=== PATIENT | female | born 1940 | race Caucasian/White ===

== ENCOUNTER 2019-11-15 09:25 | Outpatient (CLI) | payer MEDICARE, SELFPAY ==
--- NOTE | ~2019-11-15 | DEXA_ITS ---
Bone Density Report Name: Rachell Power Age: 79 Sex: Female Ethnicity: White Date of : 1940 Indication: postmenopausal; Referring Provider: Rebecca De Leon Study: Bone densitometry was performed. Exam Date: November 15, 2019 Accession number: [id number] Bone Density: Region BMD T-score Z-score Classification AP Spine (L1, L3) 1.088 0.7 3.2 Normal Femoral Neck (Left) 0.807 -0.4 1.8 Normal Total Hip (Left) 1.000 0.5 2.4 Normal Total Hip Bilateral Avg 0.994 0.5 2.4 Normal Femoral Neck (Right) 0.788 -0.5 1.7 Normal Total Hip (Right) 0.986 0.4 2.3 Normal World Health Organization criteria for BMD impression classify patients as: Normal (T-score at or above -1.0), Osteopenia (T-score between -1.0 and -2.5), or Osteoporosis (T-score at or below -2.5). 10-year Fracture Risk: FRAX not reported because: All T-scores for Spine Total, Hip Total, Femoral Neck at or above -1.0 Clinical Information Provided by Patient: Patient maximum height was 64 Menopause Age: 52 No regular weight bearing exercise Drinks caffeinated beverages Onset of menses at age 16 Number of children 0 Impression: The patient has normal bone mass. Discussion: BONE DENSITY IS ABOVE THE MINIMUM DESIRABLE LEVEL AT ALL SKELETAL SITES TESTED. This patient?s bone mineral density is above the minimum desirable level (T-score -1.0 or better) at all sites measured. The patient should follow a healthful lifestyle (good nutrition with adequate calcium and vitamin D, and appropriate weight-bearing exercise). Follow-Up: Consider repeating this study in 5 years or sooner if there is some new clinical indication. Reported by: OMAR on 11/15/2019 10:08:00 AM. Reviewed, dictated and finalized at location AТатьяна BARBOUR
== END 2019-11-15 09:26 | disposition home or self-care (01) ==
PROVIDERS: PCP Internal Medicine; Visit Provider Internal Medicine Endocrinology, Diabetes & Metabolism
DX: E03.9 Hypothyroidism, unspecified (principal); E11.65 Type 2 diabetes mellitus with hyperglycemia; Z78.0 Asymptomatic menopausal state
CPT/HCPCS: 77080

== ENCOUNTER 2020-01-30 08:22 | Outpatient (CLI) | payer MEDICARE, SELFPAY | END 2020-01-30 08:23 | disposition home or self-care (01) | PROVIDERS: PCP Internal Medicine; Visit Provider Internal Medicine Endocrinology, Diabetes & Metabolism | DX: E03.9 Hypothyroidism, unspecified (principal); R41.3 Other amnesia; Z78.0 Asymptomatic menopausal state; Z86.39 Personal history of other endocrine, nutritional and metabolic disease | CPT/HCPCS: 36415; 82607; 84439; 84443 ==

== ENCOUNTER 2020-05-09 06:46 | Outpatient (CLI) | payer MEDICARE, SELFPAY ==
--- NOTE | ~2020-05-09 | MR_ITS ---
EXAMINATION: MR brain/brain stem wo/w con DATE: 05/09/2020 08:01 INDICATION: Dementia. Amnesia. TECHNIQUE: Magnetic resonance imaging (MRI) of the brain and brainstem was performed without and with 15 mL Multihance intravenous contrast. Sequences included sagittal and axial T1-weighted SE, axial d iffusion-weighted FS SE, axial T2*-weighted GRE, axial T2-weighted FLAIR, and axial T2-weighted FSE. Postcontrast axial and coronal T1-weighted SE was obtained. Apparent diffusion coefficient (ADC) maps were created. COMPARISON: 01/16/2011 FINDINGS: Residual encephalomalacia consistent with evolution of the previously acute infarct in the left occip ital lobe and inferomedial left temporal lobe. Additional smaller regions of encephalomalacia consist ent with chronic infarcts new since the prior study located in the right occipital lobe, posterior ri ght temporal lobe and intervening temporal occipital region. There are no areas of restricted diffusi on to suggest acute infarction. No intracranial hemorrhage or abnormal intracranial mass lesion. Ther e are scattered areas of nonspecific increased T2-weighted signal intensity in the cerebral white mat ter, predominantly involving the deep and periventricular white matter. There are no intraparenchymal signal abnormalities seen on the other pulse sequences. Symmetric prominence of the sulci and ventri cles consistent with mild age-appropriate diffuse cerebral volume loss. There are no abnormal extra-a xial fluid collections. Flow voids are seen in the cerebral arteries on the T2-weighted sequences con sistent with their expected patency. Changes of right intraocular lens replacement. Visualized orbits and soft tissues are unremarkable. There are no areas of abnormal enhancement on the post contrast i mages. IMPRESSION: 1. No acute intracranial process or abnormally enhancing brain lesions. 2. Chronic infarcts in the bilateral occipital and temporal lobes, more extensive on the left. 3. Age-related changes including mild diffuse volume loss and mild scattered periventricular white ma tter T2 hyperintensity consistent with chronic small vessel ischemic disease. Reviewed, dictated and finalized at location A. IMPRESSION: 1. No acute intracranial process or abnormally enhancing brain lesions. 2. Chronic infarcts in the bilateral occipital and temporal lobes, more extensi ve on the left. 3. Age-related changes including mild diffuse volume loss and mild scattered pe riventricular white matter T2 hyperintensity consistent with chronic small vess el ischemic disease.
[2020-05-09 07:30] LABS: Estimated Glomerular Filt Rate > 60
[2020-05-09 08:16] LABS: Basophils Percent Auto 0.3 % (0.2-1.2); Eosinophils Absolute Auto 0.1 K/mm3 (0-0.3); Eosinophils Percent Auto 2.1 % (0-4.4); Hemoglobin 7.6 g/dL (12.0-15.0); Immature Granulocyte Absolute 0.01 K/mm3 (0.00-0.031); Immature Granulocyte Percent A 0.3 % (0-0.5); Lymphocytes Absolute Auto 0.38 K/mm3 (0.9-3.2); Lymphocytes Percent Auto 10.1 % (18.3-44.2); Mean Corpuscular HGB Conc 29.2 g/dl (32-36); Mean Corpuscular Hemoglobin 22.4 pg (26-34); Mean Corpuscular Volume 76.5 fl (80-100); Mean Platelet Volume 7.9 fl (7.4-10.4); Monocytes Absolute Auto 0.3 K/mm3 (0.1-0.6); Neutrophils Percent Auto 79.2 % (45.5-73.1); Platelet Count Result 243 k/mm3 (150-375); Red Cell Distribution Width 18.3 % (11.5-14.5); White Blood Count 3.8 K/mm3 (4.5-10.0)
[2020-05-09 08:28] LABS: Alanine Aminotransferase 10 U/L (4-35); Albumin Level 3.6 g/dL (3.5-5.1); Alkaline Phosphatase 87 U/L (38-126); Anion Gap 8 mmol/L (8-16); Aspartate Amino Transferase 19 U/L (14-36); Bilirubin,Total 0.7 mg/dL (0.2-1.3); Blood Urea Nitrogen 15 mg/dL (7-17); Calcium 8.6 mg/dL (8.4-10.2); Carbon Dioxide 31 mmol/L (22-30); Chloride 92 mmol/L (98-107); Estimated Glomerular Filt Rate > 60; Glucose 111 mg/dL (65-105); Potassium 3.5 mmol/L (3.4-5.0); Sodium 131 mmol/L (137-145)
[2020-05-09 09:04] LABS: Erythrocyte Sedimentation Rate > 140 mm/hr (0-20)
[2020-05-09 09:52] LABS: Rapid Plasma Reagin Non-Reactive (NonReactive)
== END 2020-05-09 06:47 | disposition home or self-care (01) ==
PROVIDERS: PCP Internal Medicine; Visit Provider Internal Medicine
DX: F03.91 Unspecified dementia, unspecified severity, with behavioral disturbance (principal); R41.3 Other amnesia; R26.9 Unspecified abnormalities of gait and mobility; E03.9 Hypothyroidism, unspecified; I63.9 Cerebral infarction, unspecified
CPT/HCPCS: 36415; 70553; 80053; 84443; 85025; 85652; 86592; A9577

== ENCOUNTER 2020-05-10 11:46 | Outpatient (CLI) | payer MEDICARE, SELFPAY ==
--- NOTE | ~2020-05-10 | CT_ITS ---
EXAMINATION: CT abdomen pelvis w con DATE: 05/10/2020 11:25 INDICATION: Abnormal weight loss, anemia TECHNIQUE: Computed tomography (CT) of the abdomen and pelvis was performed with 100 cc Omnipaque 350 intravenous contrast. Automated exposure control and iterative reconstruction technique were employe d. Exam dose: 644.01 mGy-cm total exam DLP. COMPARISON: 03/18/2011 CT urogram with and without IV contrast material FINDINGS: There is mild discoid atelectasis or scarring at the lung bases, left greater than right. Cardiomegaly. There is mild pericardial effusion. There is hepatic steatosis. There are numerous stones nearly filling the gallbladder lumen. Gallbladd er wall thickness is within normal range. There is no pericholecystic fluid or fat stranding. Spleen measures within normal range for size. No pancreatic mass lesion or calcification or pancreatic duct dilatation. Normal morphology of the adrenal glands. There is an irregular up to approximately 2 cm hypoenhancing mass of the anterolateral aspect of the upper pole of the left kidney. This is suspicious for renal cell carcinoma. There is a 2 cm indeterminate mass at the anterior aspect of the lower pole of the right kidney with attenuation of approximately 64 Hounsfield units. Hyperdense cyst versus solid renal neoplasm would b e the considerations. There is a 5 mm indeterminate hypoenhancing lesion of the anterior mid right kidney. There is a focal approximately 8.5 mm hypoenhancing area along the medial aspect of the upper pole of the left kidney. There is some apparent scarring along the posterior mid left kidney. MRI examination of the kidneys is recommended for further evaluation of suspected hypernephroma. No urinary tract calculus or hydroureteronephrosis is evident. The urinary bladder is unremarkable. S tatus post hysterectomy. There is atherosclerotic calcification of the abdominal aorta and branches, including prominent calci fications at the origins of both renal arteries. No abdominal aortic aneurysm. No intraperitoneal or retroperitoneal or pelvic mass lesion or adenopathy or ascites. A duodenal diverticulum is noted. There are innumerable diverticula of the sigmoid and descending colon; no evidence of diverticulitis. There is herniation of a short segment of transverse colon through a right anterior supraumbilical ve ntral abdominal wall hernia, without apparent stricture or obstruction. Up to 5 cm wide fat-containing umbilical hernia. There is a hemangioma the right side of the L4 vertebral body. There is levoscoliosis and prominent m ultilevel degenerative disc disease of the lumbar spine, especially at L2-3, L3-4 and L5-S1. There is degenerative change at the apophyseal joints as well.. IMPRESSION: Bilateral renal masses, including a 2 cm right renal mass highly suspicious for hypernep hroma. MRI of the kidneys is recommended for further evaluation Cardiomegaly Hepatic steatosis Cholelithiasis Duodenal diverticulum Diverticulosis of the colon Dr. Booker notified Dr. Roca's tax services professional service by telephone on 05/10/2020 at 1155 hours with the re port of suspected hypernephroma and recommendation for MRI examination of the kidneys. Reviewed, dictated and finalized at Location A. Reviewed, dictated and finalized at location A. IMPRESSION: Bilateral renal masses, including a 2 cm right renal mass highly s uspicious for hypernephroma. MRI of the kidneys is recommended for further eval uation Cardiomegaly Hepatic steatosis Cholelithiasis Duodenal diverticulum Diverticulosis of the colon Dr. Booker notified Dr. Roca's tax services professional service by telephone on 05/10/2020 at 1155 hours with the report of suspected hypernephroma and r
[2020-05-10 12:14] LABS: Hematocrit 25.9 % (37.0-47.0); Hemoglobin 7.5 g/dL (12.0-15.0); Mean Corpuscular Hemoglobin 22.3 pg (26-34); Mean Corpuscular Volume 76.9 fl (80-100); Mean Platelet Volume 7.9 fl (7.4-10.4); Platelet Count Result 236 k/mm3 (150-375); Red Blood Count 3.37 M/mm3 (4.2-5.4); Red Cell Distribution Width 18.4 % (11.5-14.5); White Blood Count 3.8 K/mm3 (4.5-10.0)
[2020-05-10 12:27] LABS: Lactate Dehydrogenase 313 U/L (313-618)
[2020-05-15 11:33] LABS: Haptoglobin 156 mg/dL (43-212)
== END 2020-05-10 11:47 | disposition home or self-care (01) ==
PROVIDERS: PCP Internal Medicine; Visit Provider Internal Medicine
DX: R63.4 Abnormal weight loss (principal); D64.9 Anemia, unspecified; N28.89 Other specified disorders of kidney and ureter; I51.7 Cardiomegaly; K80.20 Calculus of gallbladder without cholecystitis without obstruction; K57.30 Diverticulosis of large intestine without perforation or abscess without bleeding
CPT/HCPCS: 36415; 74177; 82728; 83010; 83615; 85027; Q9967

== ENCOUNTER 2020-05-14 11:42 | Outpatient (CLI) | payer MEDICARE, SELFPAY ==
--- NOTE | ~2020-05-14 | MR_ITS ---
EXAMINATION: MR abdomen wo/w con DATE: 05/14/2020 13:41 INDICATION: Bilateral renal masses. TECHNIQUE: Magnetic resonance imaging (MRI) of the abdomen was performed without and with 15 mL Multi darryl intravenous contrast. Sequences included coronal T2-weighted SS-FSE, coronal and axial FS 2D-F IESTA, axial STIR FSE, axial T2-weighted SS-FSE, axial T2-weighted FS SS-FSE, axial diffusion-weighte d SE, axial dual-echo T1-weighted FSPGR, and axial and coronal T1-weighted LAVA. Postcontrast axial T 1-weighted LAVA images were obtained in a time course. Postcontrast coronal T1-weighted LAVA images w ere obtained. COMPARISON: CT dated 05/10/20 FINDINGS: Evaluation is mildly limited by mild to moderate motion artifact on multiple sequences. Cardiomegaly. Small pericardial effusion. No pleural effusion. Multiple gallstones in the gallbladder. Common bile duct measures up to 5-6 mm which is normal with no evident choledocholithiasis. Liver is normal with no intrahepatic biliary ductal dilation. Spleen, pancreas and bilateral adrenal glands are normal. S hort segment of nonobstructed transverse colon extends through a small upper abdominal ventral hernia . There is additional more caudal small fat-containing umbilical hernia. Visualized bowels are otherw ise unremarkable. No pathologically enlarged abdominal lymphadenopathy. Mild lumbar levoscoliosis wit h severe spondylosis and associated degenerative endplate changes. Marrow signal is otherwise unremar kable. 8 mm T1 hyperintense, T2 hypointense nonenhancing proteinaceous/hemorrhagic cyst at the upper pole of the left kidney. Small region of cortical scarring at the posterior medial aspect of the mid left ki dney. 2.3 cm T1 hyperintense, T2 hypointense nonenhancing proteinaceous/hemorrhagic cyst at the anter ior lower pole of the right kidney. 2.1 cm mass at the anterior upper pole of the right kidney demons trating heterogeneous T1 and T2 signal and enhancement on postcontrast images consistent with renal c ell carcinoma. IMPRESSION: 1. 2.1 cm enhancing mass at the upper pole of the right kidney consistent with renal cell carcinoma. 2. Nonenhancing proteinaceous/hemorrhagic cysts at the upper pole of the left and lower pole of the r ight kidney. 3. Cholelithiasis. 4. Cardiomegaly with small pericardial effusion. 5. Fat-containing umbilical hernia and more cephalad ventral hernia containing short segment of nonob structed transverse colon. Reviewed, dictated and finalized at location A. IMPRESSION: 1. 2.1 cm enhancing mass at the upper pole of the right kidney consistent with renal cell carcinoma. 2. Nonenhancing proteinaceous/hemorrhagic cysts at the upper pole of the left a nd lower pole of the right kidney. 3. Cholelithiasis. 4. Cardiomegaly with small pericardial effusion. 5. Fat-containing umbilical hernia and more cephalad ventral hernia containing short segment of nonobstructed transverse colon.
== END 2020-05-14 11:43 | disposition home or self-care (01) ==
PROVIDERS: Visit Provider Internal Medicine
DX: K80.20 Calculus of gallbladder without cholecystitis without obstruction (principal); I51.7 Cardiomegaly; I31.3 Pericardial effusion (noninflammatory); K42.9 Umbilical hernia without obstruction or gangrene
CPT/HCPCS: 74183; A9577

== ENCOUNTER 2020-05-17 09:54 | Outpatient (CLI) | payer MEDICARE, SELFPAY ==
[2020-05-17 10:40] LABS: Hematocrit 27.2 % (37.0-47.0); Hemoglobin 7.9 g/dL (12.0-15.0); Mean Corpuscular Hemoglobin 22.1 pg (26-34); Mean Platelet Volume 8.4 fl (7.4-10.4); Platelet Count Result 281 k/mm3 (150-375); Red Blood Count 3.58 M/mm3 (4.2-5.4); Red Cell Distribution Width 18.2 % (11.5-14.5)
== END 2020-05-17 09:55 | disposition home or self-care (01) ==
LOC: ANHLAB 09:55
PROVIDERS: Visit Provider Internal Medicine
DX: D64.9 Anemia, unspecified (principal)
CPT/HCPCS: 36415; 85027

== ENCOUNTER 2020-06-17 00:50 | Outpatient (CLI) | payer MEDICARE, SELFPAY ==
[2020-06-17 17:41] LABS: SARS-CoV-2 RNA PCR Negative
== END 2020-06-17 00:51 | disposition home or self-care (01) ==
LOC: ANHCOVIDDT 00:50
PROVIDERS: Visit Provider Internal Medicine Gastroenterology
DX: Z01.812 Encounter for preprocedural laboratory examination (principal); Z20.828 Contact with and (suspected) exposure to other viral communicable diseases
CPT/HCPCS: 87635; C9803; U0003

== ENCOUNTER 2020-06-19 01:55 | Day surgery (SDC) | payer MEDICARE, SELFPAY ==
[2020-06-13 13:16] VITALS: BMI 26.9
[2020-06-19 12:30] VITALS: BP 125/39; PULSE 115; RESP 20; TEMP 36.3; O2SAT 100
[2020-06-19] MEDS: LACTATED RINGERS 1,000 ML 150 ML IV CONT (12:52)
--- NOTE | 2020-06-19 13:10 | WPDANESEPPF ---
Anes - Initial Pre Proc Eval Procedure: Operation Date: 06/19/20 13:30 Proposed Procedures p Esophagogastroduodenoscopy&Screen Colon - Gregorio Muse MD Date/Time: 06/19/20 13:10 Surgeon: Gregorio Muse MD Pre Op Diagnosis: Iron Deficient Anemia, Neoplasm Screening Patient Data Age: 80 Gender: F Height: 5 ft 4 in Weight: 69.2 kg Last Vital Signs Temp 97.3 F L 06/19/20 12:30 Pulse 115 H 06/19/20 12:30 Resp 20 06/19/20 12:30 BP 125/39 L 06/19/20 12:30 Pulse Ox 100 06/19/20 12:30 Allergies Allergy/AdvReac Type Severity Reaction Status Date / Time simvastatin Allergy Unknown Unknown Verified 06/19/20 12:26 MEPERIDINE HCL AdvReac Severe MADE Uncoded 06/19/20 12:26 PATIENT VERY MEAN DURING LABOR Home Medications Medication Instructions Recorded Confirmed Type blood sugar diagnostic #10 each 07/19/19 05/07/20 History rivaroxaban 20 mg tablet 20 mg PO DAILY 07/19/19 06/13/20 History hydrochlorothiazide 25 mg tablet 25 mg PO DAILY 10/25/19 06/19/20 History metoprolol succinate 100 mg 100 mg PO BID each 10/25/19 06/19/20 History capsule sprinkle, ext. release 24 hr telmisartan 40 mg tablet 80 mg PO DAILY tablet 10/25/19 06/13/20 History levothyroxine 25 mcg tablet 25 mcg PO DAILY #120 tablet 01/24/20 06/19/20 Rx ferrous sulfate [iron] 325 mg PO BID 06/13/20 06/13/20 History Patient hx anesthesia problems: none Family hx anesthesia problems: none PMFSH Past Medical History Medical History (Updated 05/16/20 @ 13:54 by Gregorio Muse MD) Afib Microcytic anemia Renal mass Stroke Type 2 diabetes mellitus with hyperglycemia Surgical History Surgical History H/O: hysterectomy Family History Family History Sibling Family history of thyroid disease Cerebrovascular accident Social History Social History Smoking status: Never smoker Second hand tobacco smoke exposure: No Alcohol intake: never Living arrangements: with family Gender identity (if verbalized by the patient): Male Spiritual care concerns: Yes (jahovas witness) Anes - Eval Final PreProcedure Day of Procedure 06/19/20 13:10 Patient weight: normal Heart: regular rate and rhythm Lungs: clear to auscultation Airway: Mallampati scale class II Neurological: alert and oriented Last oral intake: >/= 8 hours ASA classification: III Emergent: no Anesthetic plan: proceed Anesthesia type and monitoring: general GIVS and standard monitoring Informed Consent: The patient's anesthetic plan and its attendant risks and benefits were discussed with the patient/family/POA. Questions were solicited and answers provided to the satisfaction of the patient/family/POA.
--- NOTE | 2020-06-19 13:17 | PM.HPGS ---
History of Present Illness History of Present Illness Consent: Risks, benefits, and alternatives have been discussed and questions answered. Patient agrees to proceed with procedure. Chief complaint: Iron Deficient Anemia, Neoplasm Screening Narrative: Rachell Power is a 80 year old female with aurelia, needs scopes Review of Systems Constitutional: Constitutional: Denies headache(s) and Denies weakness Eyes: Eyes: Denies blurry vision ENT: Reports Normal hearing present, Denies headache(s) and Denies neck pain Cardiovascular: Cardiovascular: Denies chest pain and Denies dyspnea Respiratory: Respiratory: Denies dyspnea Gastrointestinal: Gastrointestinal: Reports no additional gastrointestinal complaints Genitourinary: Genitourinary: Denies dysuria Musculoskeletal: Musculoskeletal: Denies neck pain Integumentary/Breasts: Skin/Breast: Denies dry skin Neurologic: Reports Normal hearing present, Denies headache(s) and Denies weakness Psychiatric: Psychiatric: Denies anxiety Endocrine: Endocrine: Denies change in body appearance Hematologic/Lymphatic: Hematologic/Lymphatic: Denies easy bleeding Allergic/Immunologic: Allergic/Immunologic: Denies urticaria PMFSH Past Medical History Medical History (Updated 05/16/20 @ 13:54 by Gregorio Muse MD) Afib Microcytic anemia Renal mass Stroke Type 2 diabetes mellitus with hyperglycemia Surgical History Surgical History H/O: hysterectomy Family History Family History Sibling Family history of thyroid disease Cerebrovascular accident Social History Social History Smoking status: Never smoker Second hand tobacco smoke exposure: No Alcohol intake: never Living arrangements: with family Gender identity (if verbalized by the patient): Male Spiritual care concerns: Yes (jahovas witness) Meds Home Medications and Allergies Home Medications Medication Instructions Recorded Confirmed Type blood sugar diagnostic #10 each 07/19/19 05/07/20 History rivaroxaban 20 mg tablet 20 mg PO DAILY 07/19/19 06/13/20 History hydrochlorothiazide 25 mg tablet 25 mg PO DAILY 10/25/19 06/19/20 History metoprolol succinate 100 mg 100 mg PO BID each 10/25/19 06/19/20 History capsule sprinkle, ext. release 24 hr telmisartan 40 mg tablet 80 mg PO DAILY tablet 10/25/19 06/13/20 History levothyroxine 25 mcg tablet 25 mcg PO DAILY #120 tablet 01/24/20 06/19/20 Rx ferrous sulfate [iron] 325 mg PO BID 06/13/20 06/13/20 History Allergies Allergy/AdvReac Type Severity Reaction Status Date / Time simvastatin Allergy Unknown Unknown Verified 06/19/20 12:26 MEPERIDINE HCL AdvReac Severe MADE Uncoded 06/19/20 12:26 PATIENT VERY MEAN DURING LABOR Vital Signs Vital Signs - 24 hr 06/19/20 12:30 Temperature 97.3 F L Pulse Rate 115 H Respiratory Rate 20 Blood Pressure 125/39 L Pulse Oximetry 100 Exam Const: General: comfortable and no acute distress HENMT: General nose exam: Normal nares present Eyes: General: appearance normal, both eyes and all related structures Neck: Neck: no JVD Resp: Auscultation: clear to auscultation bilaterally Cardio: Rate: regular rate Rhythm: regular rhythm GI: Inspection: non-distended GI Palp: Yes Soft to palpation Skin: General skin exam: normal color Neuro: General: gait normal Speech: normal speech Extrem: General: normal to inspection Psych: Mental Status: mental status grossly normal Assessment and Plan Assessment and plan (1) Microcytic anemia: Code(s): D50.9 - Iron deficiency anemia, unspecified Status: Acute Assessment and Plan: egd and colonoscopy (2) Renal mass: Code(s): N28.89 - Other specified disorders of kidney and ureter Status: Acute (3) Afib:
--- NOTE | 2020-06-19 13:41 | SUR.OPER ---
EGD ENDED 133 COLONOSCOPY STARTED 1338
[2020-06-19 13:54] VITALS: BP 103/46; PULSE 48; RESP 17; O2SAT 100
[2020-06-19 14:04] VITALS: BP 112/64; PULSE 60; RESP 17; O2SAT 98
[2020-06-19 14:14] VITALS: BP 119/65; PULSE 63; RESP 20; O2SAT 100
[2020-06-19 14:21] VITALS: BP 134/66; PULSE 62; RESP 18; O2SAT 98
== END 2020-06-19 14:35 | disposition home or self-care (01) ==
PROVIDERS: Visit Provider Internal Medicine Gastroenterology
PROC: 0DJ08ZZ Inspection of Upper Intestinal Tract, Via Natural or Artificial Opening Endoscopic (ICD-10-PCS; CPT 43235; principal; 2020-06-19 13:30)
DX: D50.9 Iron deficiency anemia, unspecified (principal); K57.30 Diverticulosis of large intestine without perforation or abscess without bleeding; K44.9 Diaphragmatic hernia without obstruction or gangrene; K29.50 Unspecified chronic gastritis without bleeding; B96.81 Helicobacter pylori [H. pylori] as the cause of diseases classified elsewhere; I48.91 Unspecified atrial fibrillation; E11.9 Type 2 diabetes mellitus without complications; Z86.73 Personal history of transient ischemic attack (TIA), and cerebral infarction without residual deficits; Z79.01 Long term (current) use of anticoagulants
CPT/HCPCS: 45378; 43239; 88305; 88342; J2704; J7120

== ENCOUNTER 2020-08-09 12:33 | Outpatient (CLI) | payer MEDICARE, SELFPAY ==
[2020-08-09 13:24] LABS: Estimated Glomerular Filt Rate > 60
== END 2020-08-09 12:34 | disposition home or self-care (01) ==
LOC: ANHLAB 12:36
DX: N28.89 Other specified disorders of kidney and ureter (principal)
CPT/HCPCS: 36415; 82565

== ENCOUNTER 2020-11-12 14:55 | Outpatient (CLI) | payer MEDICARE, SELFPAY ==
[2020-11-12 15:51] LABS: Basophils Percent Auto 0.2 % (0.2-1.2); Eosinophils Absolute Auto 0.1 K/mm3 (0-0.3); Eosinophils Percent Auto 1.1 % (0-4.4); Hematocrit 32.4 % (37.0-47.0); Immature Granulocyte Absolute 0.01 K/mm3 (0.00-0.031); Immature Granulocyte Percent A 0.2 % (0-0.5); Lymphocytes Absolute Auto 0.72 K/mm3 (0.9-3.2); Lymphocytes Percent Auto 13.5 % (18.3-44.2); Mean Corpuscular HGB Conc 30.9 g/dl (32-36); Mean Corpuscular Hemoglobin 26.6 pg (26-34); Mean Corpuscular Volume 86.2 fl (80-100); Mean Platelet Volume 8.1 fl (7.4-10.4); Monocytes Absolute Auto 0.4 K/mm3 (0.1-0.6); Monocytes Percent Auto 6.7 % (2.6-8.5); Neutrophils Absolute Auto 4.2 K/mm3 (1.3-6.7); Neutrophils Percent Auto 78.3 % (45.5-73.1); Platelet Count Result 314 k/mm3 (150-375); Red Blood Count 3.76 M/mm3 (4.2-5.4); Red Cell Distribution Width 16.3 % (11.5-14.5); White Blood Count 5.4 K/mm3 (4.5-10.0)
[2020-11-12 16:04] LABS: Alanine Aminotransferase 10 U/L (4-35); Albumin Level 3.6 g/dL (3.5-5.1); Alkaline Phosphatase 103 U/L (38-126); Anion Gap 5 mmol/L (8-16); Aspartate Amino Transferase 20 U/L (14-36); Bilirubin,Total 0.6 mg/dL (0.2-1.3); Blood Urea Nitrogen 16 mg/dL (7-17); Calcium 9.1 mg/dL (8.4-10.2); Carbon Dioxide 34 mmol/L (22-30); Chloride 94 mmol/L (98-107); Estimated Glomerular Filt Rate > 60; Glucose 127 mg/dL (65-105); Potassium 3.8 mmol/L (3.4-5.0); Sodium 133 mmol/L (137-145)
[2020-11-12 17:10] LABS: Folic Acid 13.1 ng/mL (2.76->20)
== END 2020-11-12 14:56 | disposition home or self-care (01) ==
LOC: ANHLAB 14:56
PROVIDERS: PCP Internal Medicine; Visit Provider Internal Medicine
DX: D50.9 Iron deficiency anemia, unspecified (principal); E46 Unspecified protein-calorie malnutrition; I48.91 Unspecified atrial fibrillation; F03.91 Unspecified dementia, unspecified severity, with behavioral disturbance
CPT/HCPCS: 36415; 80053; 82607; 82728; 82746; 84443; 85025

== ENCOUNTER 2021-03-14 10:13 | Outpatient (CLI) | payer MEDICARE, SELFPAY ==
[2021-03-14 10:45] LABS: Basophils Percent Auto 0.2 % (0.2-1.2); Eosinophils Absolute Auto 0.1 K/mm3 (0-0.3); Eosinophils Percent Auto 1.9 % (0-4.4); Hematocrit 35.4 % (37.0-47.0); Immature Granulocyte Absolute 0.03 K/mm3 (0.00-0.031); Immature Granulocyte Percent A 0.6 % (0-0.5); Lymphocytes Absolute Auto 0.52 K/mm3 (0.9-3.2); Lymphocytes Percent Auto 10.8 % (18.3-44.2); Mean Corpuscular HGB Conc 31.1 g/dl (32-36); Mean Corpuscular Hemoglobin 27.8 pg (26-34); Mean Corpuscular Volume 89.6 fl (80-100); Mean Platelet Volume 8.3 fl (7.4-10.4); Monocytes Absolute Auto 0.3 K/mm3 (0.1-0.6); Monocytes Percent Auto 6.2 % (2.6-8.5); Neutrophils Absolute Auto 3.9 K/mm3 (1.3-6.7); Neutrophils Percent Auto 80.3 % (45.5-73.1); Platelet Count Result 223 k/mm3 (150-375); Red Blood Count 3.95 M/mm3 (4.2-5.4); Red Cell Distribution Width 15.4 % (11.5-14.5); White Blood Count 4.8 K/mm3 (4.5-10.0)
[2021-03-14 10:50] LABS: Anion Gap 8 mmol/L (8-16); Blood Urea Nitrogen 12 mg/dL (7-17); Calcium 9.1 mg/dL (8.4-10.2); Carbon Dioxide 30 mmol/L (22-30); Chloride 100 mmol/L (98-107); Estimated Glomerular Filt Rate > 60; Glucose 138 mg/dL (65-105); Potassium 4.1 mmol/L (3.4-5.0); Sodium 138 mmol/L (137-145)
== END 2021-03-14 10:14 | disposition home or self-care (01) ==
PROVIDERS: PCP Internal Medicine; Visit Provider Clinical Nurse Specialist
DX: D64.9 Anemia, unspecified (principal); I10 Essential (primary) hypertension
CPT/HCPCS: 36415; 80048; 85025

== ENCOUNTER 2022-09-14 11:26 | Outpatient (CLI) | payer MEDICARE, SELFPAY ==
[2022-09-14 20:12] LABS: Basophils Percent Auto 0.3 % (0.2-1.2); Eosinophils Absolute Auto 0.1 K/mm3 (0-0.3); Eosinophils Percent Auto 2.3 % (0-4.4); Hematocrit 36.7 % (37.0-47.0); Hemoglobin 11.5 g/dL (12.0-15.0); Immature Granulocyte Absolute 0.01 K/mm3 (0.00-0.031); Immature Granulocyte Percent A 0.3 % (0-0.5); Lymphocytes Absolute Auto 0.82 K/mm3 (0.9-3.2); Lymphocytes Percent Auto 20.7 % (18.3-44.2); Mean Corpuscular HGB Conc 31.3 g/dl (32-36); Mean Corpuscular Hemoglobin 31.1 pg (26-34); Mean Corpuscular Volume 99.2 fl (80-100); Monocytes Absolute Auto 0.3 K/mm3 (0.1-0.6); Monocytes Percent Auto 7.6 % (2.6-8.5); Neutrophils Absolute Auto 2.7 K/mm3 (1.3-6.7); Neutrophils Percent Auto 68.8 % (45.5-73.1); Platelet Count Result 192 k/mm3 (150-375); Red Cell Distribution Width 13.9 % (11.5-14.5)
[2022-09-14 20:18] LABS: Appearance Urine Clear (Clear); Bilirubin Urine 1+ (Negative); Blood Urine Negative (Negative); Color Urine Yellow (Yellow); Glucose Urine UA Negative (Negative); Ketones Urine Negative (Negative); Leukocyte Esterase Ur Negative LEU/UL (NEGATIVE); Nitrate Urine Negative (Negative); Protein Urine 1+ mg/dL (Negative); Urobilinogen Urine >=8.0 mg/dL (<2.0)
[2022-09-14 20:24] LABS: Alanine Aminotransferase 9 U/L (6-35); Albumin Level 3.7 g/dL (3.5-5.1); Alkaline Phosphatase 98 U/L (38-126); Anion Gap 4 mmol/L (8-16); Aspartate Amino Transferase 20 U/L (14-36); Bilirubin,Total 0.9 mg/dL (0.2-1.3); Blood Urea Nitrogen 15 mg/dL (7-17); Calcium 8.7 mg/dL (8.4-10.2); Carbon Dioxide 34 mmol/L (22-30); Chloride 103 mmol/L (98-107); Estimated Glomerular Filt Rate > 60; Glucose 84 mg/dL (65-110); Potassium 4.1 mmol/L (3.4-5.0); Sodium 141 mmol/L (137-145)
[2022-09-14 20:24] LABS: Bacteria Urine Trace /hpf; Calcium Oxalate Crystals Urine Many /hpf; Mucus Urine Rare /lpf; Squamous Epithelial Cell Urine Many /hpf (Few); WBC Urine 0-3 /hpf (0-3)
[2022-09-14 20:32] LABS: Add Urine Microscopic? YES
[2022-09-14 21:28] LABS: Folic Acid 10.1 ng/mL (2.76->20)
[2022-09-14 21:33] LABS: Creatinine Urine 95.5 mg/dL
[2022-09-14 21:37] LABS: MALB Creatinine Ratio 55.5 mg/g (0-30)
== END 2022-09-14 11:27 | disposition home or self-care (01) ==
LOC: ANHGOSHLAB 11:27
PROVIDERS: PCP Internal Medicine; Visit Provider Internal Medicine
DX: D64.9 Anemia, unspecified (principal); E46 Unspecified protein-calorie malnutrition; I48.91 Unspecified atrial fibrillation; E03.9 Hypothyroidism, unspecified; Z86.39 Personal history of other endocrine, nutritional and metabolic disease
CPT/HCPCS: 36415; 80053; 81001; 82043; 82607; 82746; 83036; 84443; 85025

== ENCOUNTER 2022-10-05 14:43 | Outpatient (CLI) | payer MEDICARE, SELFPAY ==
--- NOTE | ~2022-10-05 | CT_ITS ---
EXAMINATION: CT abdomen w con INDICATION: Renal mass TECHNIQUE: Computed tomographic images of the abdomen were obtained after the administration of 100 c c of Omnipaque 350 intravenous contrast. The dose-length product (DLP) was 338.14 mGy-cm. Automated e xposure control and iterative reconstruction technique were employed. COMPARISON: 05/10/2020 FINDINGS: There is a small right pleural effusion. Cardiomegaly is noted. There is a chronic small pe ricardial effusion.. Stones are present in the nondistended gallbladder. The liver, pancreas, and adr enal glands are normal. Subtle hypoattenuating lesion of the spleen are unchanged, consistent with be nign findings. There is a 2.4 x 1.4 cm enhancing mass at the anterior aspect of the mid kidney with i ncrease in size of the mass abuts the renal pelvis. There are no pathologically enlarged abdominal ly mph nodes. There is a moderate ventral hernia containing fat. No free intraperitoneal gas or evidence of bowel obstruction. Calcified atherosclerosis is noted. There is severe lumbar spondylosis. A larg e volume of colonic stool is present. IMPRESSION: 1. Enhancing right kidney mass with slight increase in size, consistent with renal cell carcinoma. 2. Constipation. 3. Cholelithiasis without evidence of cholecystitis. Reviewed, dictated and finalized at location B. ATION PROGRAM SPECIALIST IMPRESSION: 1. Enhancing right kidney mass with slight increase in size, consistent with re nal cell carcinoma. 2. Constipation. 3. Cholelithiasis without evidence of cholecystitis.
== END 2022-10-05 14:44 | disposition home or self-care (01) ==
PROVIDERS: PCP Internal Medicine
DX: N28.89 Other specified disorders of kidney and ureter (principal); K59.00 Constipation, unspecified; K80.20 Calculus of gallbladder without cholecystitis without obstruction
CPT/HCPCS: 74160; Q9967

== ENCOUNTER 2023-03-03 17:14 | Observation (INO) | payer MEDICARE, SELFPAY ==
--- NOTE | ~2023-03-03 | MR_ITS ---
EXAMINATION: MR brain/brain stem wo/w con DATE: 03/04/2023 11:30 INDICATION: Leg weakness. TECHNIQUE: Magnetic resonance imaging (MRI) of the brain and brainstem was performed without and with 12 mL MultiHance intravenous contrast. COMPARISON: Brain MRI 05/09/2020, head CT 03/03/2023 FINDINGS: There is chronic encephalomalacia in the temporal occipital regions bilaterally, left worse than right. There is a small old infarct in right temporal lobe. There are scattered areas of nonspe cific increased T2-weighted signal intensity in the cerebral white matter. There is no acute ischemic infarct. There is a punctate focus of old microhemorrhage in the left temporal stem. There is ex vac uo dilatation of trigone of left lateral ventricle. There is mild mucosal thickening in the paranasal sinuses. There are likely changes of ocular lens replacement surgeries. The mastoid air cells are no rmal. IMPRESSION: 1. Old infarcts involving the bilateral temporal and occipital lobes. 2. Mild nonspecific cerebral white matter disease, which likely represents chronic small vessel ische wiliam disease. Reviewed, dictated and finalized at location [facility]. IMPRESSION: 1. Old infarcts involving the bilateral temporal and occipital lobes. 2. Mild nonspecific cerebral white matter disease, which likely represents still tender shanice small vessel ischemic disease.
--- NOTE | ~2023-03-03 | CT_ITS ---
EXAMINATION: CT brain wo con DATE: 03/03/2023 20:41 INDICATION: Confusion, weakness. TECHNIQUE: Computed tomography (CT) of the head was performed without intravenous contrast. The mA wa s adjusted according to patient size. Iterative reconstruction technique was employed. Exam dose: 60 5.33 mGy-cm total exam DLP. COMPARISON: 05/09/2020 MRI brain/brainstem 10/21/2011 CT brain FINDINGS: Chronic encephalomalacia of the medial left occipital lobe due to old infarct. There is extensive diminished attenuation in the posterior left temporal and occipital lobes on the r ight, likely due to prior infarct. MR imaging would be more sensitive to evaluate for acute infarctio n. No midline shift or mass effect effect. No intracranial hemorrhage. Chronic bilateral basal ganglia calcifications. No subdural or epidural hematoma is detected. Bilateral vertebral artery, basilar artery and carotid siphon internal carotid artery calcifications. There is nonspecific diminished attenuation of the cerebral white matter, likely due to chronic smal l vessel ischemic changes. The mastoid air cells and included paranasal sinuses are unremarkable except for mild focal soft tiss ue thickening/opacification of the ethmoid air cells. No fracture or bone destruction of the cranial vault. IMPRESSION: Bilateral occipital infarcts; no acute intracranial hemorrhage MR brain examination would be more sensitive for detection of any acute infarct. Cerebral atherosclerosis and chronic small vessel ischemic changes of the cerebral white matter Reviewed, dictated and finalized at [facility]. Reviewed, dictated and finalized at location A. IMPRESSION: Bilateral occipital infarcts; no acute intracranial hemorrhage MR brain examination would be more sensitive for detection of any acute infarct . Cerebral atherosclerosis and chronic small vessel ischemic changes of the cereb ral white matter
[2023-03-03 17:23] VITALS: BP 150/59; PULSE 69; RESP 18; TEMP 37; O2SAT 99
--- NOTE | 2023-03-03 18:21 | ECG_ITS ---
Measurements Intervals [place] Rate: 61 P: DC: 0 QRS: -66 QRSD: 164 T: 112 QT: 475 QTc: 480 Interpretive Statements ATRIAL FIBRILLATION LEFT AXIS DEVIATION LEFT BUNDLE BRANCH BLOCK BASELINE ARTIFACT- V3 ABNORMAL ECG NO PREVIOUS ECG AVAILABLE FOR COMPARISON Electronically Signed On 03-03-2023 21:39:03 CDT by Cade Velazquez D.O.
--- NOTE | 2023-03-03 19:02 | ED.GENADULT ---
HPI - General Adult General Chief complaint: Weakness Stated complaint: weakness Time Seen by Provider: 03/03/23 18:29 History of Present Illness HPI narrative: Patient is an 83-year-old female with history of vascular dementia who presents ER with weakness. reports patient has had decreased mobility over the last 24 hours and is unable to assist in standing up and walking. Patient unable to provide additional history. He reports she does seem a bit more confused than typical. Patient smells strongly of urine in his diaper that is fall and falling apart. Related Data Home Medications Medication Instructions Recorded Confirmed metoprolol succinate 100 mg 100 mg PO BID 10/25/19 01/12/23 capsule sprinkle, ext. release 24 hr telmisartan 40 mg tablet 80 mg PO DAILY 10/25/19 01/12/23 ferrous sulfate 325 mg (65 mg 325 mg PO BID 06/13/20 01/12/23 iron) tablet (iron) apixaban 5 mg tablet (Eliquis) 5 mg PO BID 07/29/20 01/12/23 cholecalciferol (vitamin D3) 25 25 mcg PO DAILY 12/16/20 01/12/23 mcg (1,000 unit) tablet (Vitamin D3) lutein 25 mg-zeaxanthin 5 mg cap PO 07/31/21 01/12/23 capsule brimonidine 0.2 % eye drops 1 drp RIGHT EYE BID 09/14/22 01/12/23 dorzolamide 22.3 mg-timolol 6.8 1 drp RIGHT EYE BID 09/14/22 01/12/23 mg/mL eye drops ketorolac 0.5 % eye drops 1 drp RIGHT EYE Q8H 09/14/22 01/12/23 memantine 5 mg-10 mg tablets in a 1 ea PO PER PKG DIR 09/14/22 01/12/23 dose pack ofloxacin 0.3 % eye drops 1 drp RIGHT EYE QID 09/14/22 01/12/23 Allergies Allergy/AdvReac Type Severity Reaction Status Date / Time simvastatin Allergy Unknown Unknown Verified 01/12/23 08:58 MEPERIDINE HCL AdvReac Severe MADE Uncoded 01/12/23 08:58 PATIENT VERY MEAN DURING LABOR Review of Systems Review of Systems: ROS unobtainable: Yes unobtainable due to mental status [facility] Past Medical History Medical History (Updated 03/03/23 @ 21:45 by Fausto Hagen MD) Afib Body mass index (BMI) greater than 40 (09/19/15) Diabetic peripheral neuropathy Essential (primary) hypertension Helicobacter positive gastritis Microcytic anemia Multi-infarct dementia Renal cell carcinoma Renal mass Stroke Type 2 diabetes mellitus with hyperglycemia Surgical History Surgical History H/O: hysterectomy History of arthroplasty of both knees History of cataract surgery both eyes, did not work in right eye Family History Family History Sibling Family history of thyroid disease Cerebrovascular accident Social History Social History Smoking status: Never smoker Second hand tobacco smoke exposure: No Alcohol intake: never Lack of Transportation: No Lack of Food: Never True Current Housing: I Have Housing Concerned About Future Housing: No Difficulty Paying Gas/Electric Bills: No Difficulty Paying for Meds: No Currently Unemployed: No Education: High School Diploma/GED Difficulty w/ Childcare or Family Care: No Living arrangements: with family Gender identity (if verbalized by the patient): Male Spiritual care concerns: Yes (jahovas witness) Exam Narrative: GENERAL: Chronically ill-appearing, well-nourished, and in no acute distress. HEAD: Normocephalic, atraumatic. EYES: PERRL and EOMI. ENT: Mucous membranes moist. NECK: Supple. CHEST: Clear to auscultation. No respiratory distress. HEART: Irregular regular rate and rhythm. Normal peripheral pulses. ABDOMEN: Soft, nontender, nondistended. EXTREMITIES: Normal range of motion. No edema. SKIN: Warm, dry, yeast dermatitis to the underside of the pannus/right groin. NEURO: Alert and oriented x2. Course Course Emergency Course: Patient resting comfortably. Discussed results with patient's family. No acute issues on labs with patie
[2023-03-03] MEDS: SODIUM CHLORIDE 0.9% IV 1,000 ML 999 ML IV CONT (19:09)
[2023-03-03 20:03] LABS: Basophils Percent Auto 0.1 % (0.2-1.2); Eosinophils Percent Auto 0.1 % (0-4.4); Immature Granulocyte Absolute 0.01 K/mm3 (0.00-0.031); Immature Granulocyte Percent A 0.1 % (0-0.5); Lymphocytes Absolute Auto 0.51 K/mm3 (0.9-3.2); Lymphocytes Percent Auto 7.5 % (18.3-44.2); Mean Corpuscular HGB Conc 32.4 g/dl (32-36); Mean Corpuscular Hemoglobin 31.1 pg (26-34); Mean Platelet Volume 8.8 fl (7.4-10.4); Monocytes Absolute Auto 0.6 K/mm3 (0.1-0.6); Monocytes Percent Auto 8.9 % (2.6-8.5); Neutrophils Absolute Auto 5.7 K/mm3 (1.3-6.7); Neutrophils Percent Auto 83.3 % (45.5-73.1); Platelet Count Result 157 k/mm3 (150-375); Red Blood Count 3.54 M/mm3 (4.2-5.4); White Blood Count 6.8 K/mm3 (4.5-10.0)
[2023-03-03 20:13] LABS: Alanine Aminotransferase 11 U/L (6-35); Albumin Level 3.6 g/dL (3.5-5.1); Alkaline Phosphatase 94 U/L (38-126); Anion Gap 7 mmol/L (8-16); Aspartate Amino Transferase 20 U/L (14-36); Bilirubin,Total 1.9 mg/dL (0.2-1.3); Blood Urea Nitrogen 16 mg/dL (7-17); Calcium 8.5 mg/dL (8.4-10.2); Carbon Dioxide 32 mmol/L (22-30); Chloride 95 mmol/L (98-107); Estimated CRCL calculation 47 ml/min; Estimated Glomerular Filt Rate > 60; Glucose 128 mg/dL (65-110); Potassium 3.7 mmol/L (3.4-5.0); Sodium 134 mmol/L (137-145)
[2023-03-03 20:23] LABS: Appearance Urine Cloudy (Clear); Bacteria Urine None Seen /hpf; Bilirubin Urine 1+ (Negative); Blood Urine Negative (Negative); Color Urine Dark Yellow (Yellow); Glucose Urine UA Negative (Negative); Hyaline Casts Urine Present /lpf; Ketones Urine 1+ mg/dL (Negative); Leukocyte Esterase Ur Trace LEU/UL (Negative); Nitrate Urine Negative (Negative); Protein Urine 2+ mg/dL (Negative); Red Blood Cell Casts Urine Present /lpf; Specific Grav Ur 1.018 (1.001-1.035); Squamous Epithelial Cell Urine Few /hpf (Few); WBC Urine 0-5 /hpf
[2023-03-03 20:24] LABS: Add Urine Microscopic? YES
[2023-03-03 20:24] LABS: INR 2.1; Prothrombin Time 24.6 Seconds (11.1-14.7)
[2023-03-03 20:25] LABS: Partial Thromboplastin Time 47.7 SECONDS (22.3-36.8)
[2023-03-03 20:59] VITALS: BP 178/68; PULSE 60; RESP 18; O2SAT 99
--- NOTE | 2023-03-03 22:45 | PM.IMHP ---
H&P: HPI History of Present Illness Date/Time: 03/03/23 22:45 Chief Complaint: acute onset weakness Narrative: Patient is an 83-year-old female with history of vascular dementia who presents ER with weakness.? reports patient has had decreased mobility over the last 24 hours and is unable to assist in standing up and walking.? Patient unable to provide additional history.? He reports she does seem a bit more confused than typical.? Patient smells strongly of urine in his diaper that is fall and falling apart. Patient has been attending twice weekly physical therapy session. She is satisfied with her progress. Review of Systems Review of Systems: CONSTITUTIONAL: Negative for any fevers, chills, night sweats, tiredness, fatigue, malaise, anorexia or weight loss. CARDIOVASCULAR: Negative for chest pain, palpitations, dizziness, orthopnea or lower extremity edema. RESPIRATORY: Negative for shortness of breath, cough, wheezing, sputum. GASTROINTESTINAL: Negative for nausea, vomiting, diarrhea, constipation or abdominal pain. GENITOURINARY: Negative for frequency, nocturia, dysuria, hematuria. GYNECOLOGIC: Negative for abnormal bleeding. HEMATOLOGIC: Negative for any abnormal bleeding or bruising. MUSCULOSKELETAL: Positive for generalized weakness, and limited mobility. Negative for joint swelling, stiffness or pain. SKIN: Negative for rashes, eruptions, lesions. Positive for lower extremity skin dryness. NEUROLOGIC: Negative for any focal neurologic complaints. PSYCHIATRIC: Negative for anxiety, panic, depression. [facility] Past Medical History Medical History Afib Body mass index (BMI) greater than 40 (09/19/15) Diabetic peripheral neuropathy Essential (primary) hypertension Helicobacter positive gastritis Microcytic anemia Multi-infarct dementia Renal cell carcinoma Renal mass Stroke Type 2 diabetes mellitus with hyperglycemia Surgical History Surgical History H/O: hysterectomy History of arthroplasty of both knees History of cataract surgery both eyes, did not work in right eye Family History Family History Sibling Family history of thyroid disease Cerebrovascular accident Social History Social History Smoking status: Never smoker Second hand tobacco smoke exposure: No Alcohol intake: never Substance use: never Lack of Transportation: No Lack of Food: Never True Current Housing: I Have Housing Concerned About Future Housing: No Difficulty Paying Gas/Electric Bills: No Difficulty Paying for Meds: No Currently Unemployed: No Education: High School Diploma/GED Difficulty w/ Childcare or Family Care: No Living arrangements: with family Gender identity (if verbalized by the patient): Male Spiritual care concerns: Yes (jahovas witness) Meds Home Medications and Allergies Home Medications Medication Instructions Recorded Confirmed Type metoprolol succinate 100 mg 100 mg PO BID 10/25/19 03/04/23 History capsule sprinkle, ext. release 24 hr telmisartan 40 mg tablet 80 mg PO DAILY 10/25/19 03/04/23 History ferrous sulfate 325 mg (65 mg 325 mg PO BID 06/13/20 01/12/23 History iron) tablet (iron) apixaban 5 mg tablet (Eliquis) 5 mg PO BID 07/29/20 03/04/23 History cholecalciferol (vitamin D3) 25 25 mcg PO DAILY 12/16/20 01/12/23 History mcg (1,000 unit) tablet (Vitamin D3) lutein 25 mg-zeaxanthin 5 mg cap PO 07/31/21 01/12/23 History capsule brimonidine 0.2 % eye drops 1 drp RIGHT EYE BID 09/14/22 01/12/23 History dorzolamide 22.3 mg-timolol 6.8 1 drp RIGHT EYE BID 09/14/22 03/04/23 History mg/mL eye drops ketorolac 0.5 % eye drops 1 drp RIGHT EYE Q8H 09/14/22 01/12/23 History ofloxacin 0.3 % eye drops 1 drp RIGHT EYE QID 09/14/2201/12
[2023-03-03 23:03] VITALS: BP 169/79; PULSE 54; RESP 20; O2SAT 96
[2023-03-04] VITALS (11 sets, daily range): BP systolic 147–170; BP diastolic 72–77; PULSE 48–66; RESP 12–20; TEMP 36.2–36.5; O2SAT 96–100; BMI 23.1; BMI 23.4
--- NOTE | 2023-03-04 00:24 | ADMGEN ---
This patient, Rachell Power, was admitted to 3 [facility] Surg Room 304-01. Patient/family oriented to hospital policies and general routines including ID bracelet, bed and alarms, visiting hours, pain management, procedures, bathroom and other care routines, personal items, smoking policy, room service/diet, and visiting hours. Information on how to activate the Rapid Response Team has been discussed. Patient/Family are encouraged to report perceived risks to care and to ask questions if they do not understand what they are told or what they should do.
--- NOTE | 2023-03-04 08:06 | PC.NURSE ---
Message left for to update medication list and MRI screen form.
[2023-03-04] MEDS: TELMISARTAN 40 MG TABLET 80 MG PO (08:36)
[2023-03-04] MEDS: METOPROLOL SUCCINATE EXT REL 100 MG TABCR PO ×2 (08:36→17:25)
[2023-03-04] MEDS: APIXABAN 5 MG TABLET PO ×2 (08:38→17:26)
--- NOTE | 2023-03-04 08:43 | PM.IMPN ---
Progress Note: A&P Assessment and Plan (1) Ambulatory dysfunction: Code(s): R26.2 - Difficulty in walking, not elsewhere classified Status: Acute Assessment and Plan: Patient presents with sudden onset weakness; she does not appear to be focal. Initial head CT without any focalized siding. Pending mRI with and without contrast today. PT/OT evaluation for rehabilitation. stock worker evaluation for placement. (2) Multi-infarct dementia: Qualifiers: Dementia behavioral or psychological symptom: without behavioral, psychotic, or mood disturbance or anxiety Dementia severity: moderate Qualified Code(s): F01.B0 - Vascular dementia, moderate, without behavioral disturbance, psychotic disturbance, mood disturbance, and anxiety Code(s): F01.50 - Vascular dementia, unspecified severity, without behavioral disturbance, psychotic disturbance, mood disturbance, and anxiety Status: Acute Assessment and Plan: Patient is unable to care for self. stock worker evaluation for placement. (3) Yeast dermatitis: Code(s): B37.2 - Candidiasis of skin and nail Status: Acute Assessment and Plan: Apply local antifungal therapy. (4) Abnormal weight loss: Code(s): R63.4 - Abnormal weight loss Status: Acute Assessment and Plan: Patient reports will under with loss of 60 lb. Check prealbumin level. Nutritional evaluation. Patient may benefit from a 3 day calorie count. (5) Renal cell carcinoma: Qualifiers: Laterality: unspecified laterality Qualified Code(s): C64.9 - Malignant neoplasm of unspecified kidney, except renal pelvis Code(s): C64.9 - Malignant neoplasm of unspecified kidney, except renal pelvis Status: Acute (6) Essential hypertension: Code(s): I10 - Essential (primary) hypertension Status: Acute Assessment and Plan: Blood pressure moderately controlled. Continue home medication. (7) Protein calorie malnutrition: Code(s): E46 - Unspecified protein-calorie malnutrition Status: Acute Assessment and Plan: Management as above. Add Ensure can to each tray. (8) Diet-controlled type 2 diabetes mellitus: Code(s): E11.9 - Type 2 diabetes mellitus without complications Status: Acute Assessment and Plan: Check HGB A1c. (9) Gait abnormality: Code(s): R26.9 - Unspecified abnormalities of gait and mobility Status: Acute Assessment and Plan: Patient has a general weakness, focal weakness, Physical therapy evaluation. (10) Dementia: Qualifiers: Dementia behavioral disturbance: with behavioral disturbance Dementia type: unspecified type Qualified Code(s): F03.91 - Unspecified dementia with behavioral disturbance Code(s): F03.90 - Unspecified dementia, unspecified severity, without behavioral disturbance, psychotic disturbance, mood disturbance, and anxiety Status: Acute Assessment and Plan: Maintain fall precaution at all times. (11) Type 2 diabetes mellitus without complication: Qualifiers: Diabetes mellitus terminal clerk insulin use: without terminal clerk use Qualified Code(s): E11.9 - Type 2 diabetes mellitus without complications Code(s): E11.9 - Type 2 diabetes mellitus without complications Status: Acute (12) Hypothyroidism: Qualifiers: Hypothyroidism type: acquired Qualified Code(s): E03.9 - Hypothyroidism, unspecified Code(s): E03.9 - Hypothyroidism, unspecified Status: Acute Assessment and Plan: Continue supplementation. Plan DVT prophylaxis: Robert chen. Code status is a full code. Subjective Date/time seen: 03/04/23 08:43 Interval history: I saw and examined patient today, patient feels better, no new issue events overnight. Patient feels tired, no specific complaint. I reviewed the labs, imaging studies Exam Narrative: GENERAL: Ill-appea
[2023-03-04] MEDS: DORZOLAMIDE/TIMOLOL OPHTH SOL 10 ML BOTTLE 1 DROP RIGHT EYE ×2 (13:14→19:48)
[2023-03-04] MEDS: TOLNAFTATE 1% POWDER 45 GM BTL 1 APPLIC TOPICAL ×2 (13:16→19:50)
--- NOTE | 2023-03-04 16:44 | PCPTNOTE ---
On 03/04/23, the student, [Brenda Rivera], provided care and completed [facility] documentation on this patient. I have reviewed the student's documentation and agree with the findings.
[2023-03-04] MEDS: MEMANTINE 10 MG TABLET 20 MG PO (19:48)
[2023-03-05] VITALS (12 sets, daily range): BP systolic 115–213; BP diastolic 59–97; PULSE 60–85; RESP 12–16; TEMP 36.4–36.8; O2SAT 95–98
[2023-03-05 05:58] LABS: Hematocrit 31.2 % (37.0-47.0); Hemoglobin 10.1 g/dL (12.0-15.0); Mean Corpuscular HGB Conc 32.4 g/dl (32-36); Mean Corpuscular Hemoglobin 30.7 pg (26-34); Mean Corpuscular Volume 94.8 fl (80-100); Mean Platelet Volume 9.1 fl (7.4-10.4); Platelet Count Result 169 k/mm3 (150-375); Red Blood Count 3.29 M/mm3 (4.2-5.4); Red Cell Distribution Width 13.8 % (11.5-14.5); White Blood Count 5.2 K/mm3 (4.5-10.0)
[2023-03-05 06:14] LABS: Anion Gap 3 mmol/L (8-16); Blood Urea Nitrogen 12 mg/dL (7-17); Calcium 8.2 mg/dL (8.4-10.2); Carbon Dioxide 33 mmol/L (22-30); Chloride 96 mmol/L (98-107); Estimated CRCL calculation 64 ml/min; Estimated Glomerular Filt Rate > 60; Glucose 93 mg/dL (65-110); Potassium 3.3 mmol/L (3.4-5.0); Sodium 132 mmol/L (137-145)
--- NOTE | 2023-03-05 06:44 | PC.NURSE ---
VS B/P of caied to Dr. Zendejas
[2023-03-05] MEDS: hydrALAZINE HCL 20 MG/ML VIAL 10 MG IV PUSH (06:59)
--- NOTE | 2023-03-05 07:55 | PM.IMPN ---
Progress Note: A&P Assessment and Plan (1) Ambulatory dysfunction: Code(s): R26.2 - Difficulty in walking, not elsewhere classified Status: Acute Assessment and Plan: Patient presents with sudden onset weakness; she does not appear to be focal. Initial head CT without any focalized siding. mRI with and without contrast suggests Old infarcts involving the bilateral temporal and occipital lobes. 2. Mild nonspecific cerebral white matter disease, which likely represents chronic small vessel ischemic disease. add aspirin 81 mg, Lipitor 40 mg daily p.o., follow-up lipid panel per PCP PT/OT evaluation for rehabilitation. horticultural farmworker evaluation for placement. (2) Multi-infarct dementia: Qualifiers: Dementia behavioral or psychological symptom: without behavioral, psychotic, or mood disturbance or anxiety Dementia severity: moderate Qualified Code(s): F01.B0 - Vascular dementia, moderate, without behavioral disturbance, psychotic disturbance, mood disturbance, and anxiety Code(s): F01.50 - Vascular dementia, unspecified severity, without behavioral disturbance, psychotic disturbance, mood disturbance, and anxiety Status: Acute Assessment and Plan: Patient is unable to care for self. horticultural farmworker evaluation for placement. (3) Yeast dermatitis: Code(s): B37.2 - Candidiasis of skin and nail Status: Acute Assessment and Plan: Apply local antifungal therapy. (4) Abnormal weight loss: Code(s): R63.4 - Abnormal weight loss Status: Acute Assessment and Plan: Patient reports will under with loss of 60 lb. Check prealbumin level. Nutritional evaluation. Patient may benefit from a 3 day calorie count. (5) Renal cell carcinoma: Qualifiers: Laterality: unspecified laterality Qualified Code(s): C64.9 - Malignant neoplasm of unspecified kidney, except renal pelvis Code(s): C64.9 - Malignant neoplasm of unspecified kidney, except renal pelvis Status: Acute (6) Essential hypertension: Code(s): I10 - Essential (primary) hypertension Status: Acute Assessment and Plan: Uncontrolled hypertension. Blood pressure 213/97 Continue metoprolol 100 mg daily p.o. and add hydrochlorothiazide 25 mg daily p.o., losartan 50 mg daily p.o. Patient is on hydralazine 10 mg IV push p.r.n. (7) Protein calorie malnutrition: Code(s): E46 - Unspecified protein-calorie malnutrition Status: Acute Assessment and Plan: Management as above. Add Ensure can to each tray. (8) Diet-controlled type 2 diabetes mellitus: Code(s): E11.9 - Type 2 diabetes mellitus without complications Status: Acute Assessment and Plan: Check HGB A1c. (9) Gait abnormality: Code(s): R26.9 - Unspecified abnormalities of gait and mobility Status: Acute Assessment and Plan: Patient has a general weakness, focal weakness, Physical therapy evaluation. (10) Dementia: Qualifiers: Dementia behavioral disturbance: with behavioral disturbance Dementia type: unspecified type Qualified Code(s): F03.91 - Unspecified dementia with behavioral disturbance Code(s): F03.90 - Unspecified dementia, unspecified severity, without behavioral disturbance, psychotic disturbance, mood disturbance, and anxiety Status: Acute Assessment and Plan: Maintain fall precaution at all times. (11) Type 2 diabetes mellitus without complication: Qualifiers: Diabetes mellitus residential insulin use: without extermination inspector use Qualified Code(s): E11.9 - Type 2 diabetes mellitus without complications Code(s): E11.9 - Type 2 diabetes mellitus without complications Status: Acute (12) Hypothyroidism: Qualifiers: Hypothyroidism type: acquired Qualified Code(s): E03.9 - Hypothyroidism, unspecified Code(s): E03.9 - Hypothyroidism, unspecified Status: Acute [place]se
--- NOTE | 2023-03-05 09:39 | PC.NURSE ---
Hospitalist notified this RN that patient's at bedside administered some of her medications this morning. This RN clarified medications administered this morning and non-administered on the MAR r/t administrating medications. educated that nursing staff will administer medications while in the hospital and educated to take home medications home with him. voiced understanding and agreed to take home medications home with him. Floor RN notified.
[2023-03-05] MEDS: hydroCHLOROthiazide 25 MG TABLET PO (09:58)
[2023-03-05] MEDS: ASPIRIN 81 MG ENTERIC TABLET PO (09:58)
[2023-03-05] MEDS: DORZOLAMIDE/TIMOLOL OPHTH SOL 10 ML BOTTLE 1 DROP RIGHT EYE ×2 (09:58→20:00)
[2023-03-05] MEDS: ATORVASTATIN 40 MG TABLET PO (09:58)
[2023-03-05] MEDS: POTASSIUM CHLORIDE 20 MEQ ER TABLET 40 MEQ PO (09:59)
[2023-03-05] MEDS: TOLNAFTATE 1% POWDER 45 GM BTL 1 APPLIC TOPICAL ×2 (09:59→20:00)
[2023-03-05] MEDS: LOSARTAN POTASSIUM 50 MG TABLET PO (09:59)
[2023-03-05] MEDS: APIXABAN 5 MG TABLET PO (16:25)
[2023-03-05] MEDS: METOPROLOL SUCCINATE EXT REL 100 MG TABCR PO (16:26)
[2023-03-06] VITALS (12 sets, daily range): BP systolic 124–169; BP diastolic 56–71; PULSE 59–80; RESP 13–18; TEMP 36.1–36.7; O2SAT 98–100
[2023-03-06 08:44] LABS: Anion Gap 5 mmol/L (8-16); Blood Urea Nitrogen 17 mg/dL (7-17); Calcium 8.8 mg/dL (8.4-10.2); Carbon Dioxide 33 mmol/L (22-30); Chloride 96 mmol/L (98-107); Estimated CRCL calculation 54 ml/min; Estimated Glomerular Filt Rate > 60; Glucose 111 mg/dL (65-110); Potassium 3.8 mmol/L (3.4-5.0); Sodium 134 mmol/L (137-145)
[2023-03-06] MEDS: DORZOLAMIDE/TIMOLOL OPHTH SOL 10 ML BOTTLE 1 DROP RIGHT EYE (09:42)
[2023-03-06] MEDS: TELMISARTAN 40 MG TABLET 80 MG PO (09:42)
[2023-03-06] MEDS: ASPIRIN 81 MG ENTERIC TABLET PO (09:42)
[2023-03-06] MEDS: APIXABAN 5 MG TABLET PO ×2 (09:42→18:18)
[2023-03-06] MEDS: LOSARTAN POTASSIUM 50 MG TABLET PO (09:42)
[2023-03-06] MEDS: ATORVASTATIN 40 MG TABLET PO (09:42)
[2023-03-06] MEDS: hydroCHLOROthiazide 25 MG TABLET PO (09:42)
[2023-03-06] MEDS: METOPROLOL SUCCINATE EXT REL 100 MG TABCR PO ×2 (09:43→18:18)
[2023-03-06] MEDS: TOLNAFTATE 1% POWDER 45 GM BTL 1 APPLIC TOPICAL ×2 (09:43→20:55)
[2023-03-06] MEDS: ACETAMINOPHEN 325 MG TABLET 650 MG PO (09:56)
--- NOTE | 2023-03-06 12:45 | PCPTNOTE ---
Patient eating lunch. Will check on patient after physical therapist sees another patient.
--- NOTE | 2023-03-06 14:14 | PM.IMPN ---
Progress Note: A&P Assessment and Plan (1) Ambulatory dysfunction: Code(s): R26.2 - Difficulty in walking, not elsewhere classified Status: Acute Assessment and Plan: Patient presents with sudden onset weakness; she does not appear to be focal. Initial head CT without any focalized siding. MR of brain with and without contrast suggests Old infarcts involving the bilateral temporal and occipital lobes. 2. Mild nonspecific cerebral white matter disease, which likely represents chronic small vessel ischemic disease. add aspirin 81 mg, Lipitor 40 mg daily p.o., follow-up lipid panel per PCP PT/OT evaluation for rehabilitation. sheet metal layout worker evaluation for placement. (2) Multi-infarct dementia: Qualifiers: Dementia severity: moderate Dementia behavioral or psychological symptom: without behavioral, psychotic, or mood disturbance or anxiety Qualified Code(s): F01.B0 - Vascular dementia, moderate, without behavioral disturbance, psychotic disturbance, mood disturbance, and anxiety Code(s): F01.50 - Vascular dementia, unspecified severity, without behavioral disturbance, psychotic disturbance, mood disturbance, and anxiety Status: Acute Assessment and Plan: Patient is unable to care for self. sheet metal layout worker evaluation for placement. Per PT OT evaluation, patient will benefit from rehab, awaiting for insurance decisions (3) Yeast dermatitis: Code(s): B37.2 - Candidiasis of skin and nail Status: Acute Assessment and Plan: Apply local antifungal therapy. (4) Abnormal weight loss: Code(s): R63.4 - Abnormal weight loss Status: Acute Assessment and Plan: Patient reports will under with loss of 60 lb. Check prealbumin level. Nutritional evaluation. Patient may benefit from a 3 day calorie count. Consult dietitian (5) Renal cell carcinoma: Qualifiers: Laterality: unspecified laterality Qualified Code(s): C64.9 - Malignant neoplasm of unspecified kidney, except renal pelvis Code(s): C64.9 - Malignant neoplasm of unspecified kidney, except renal pelvis Status: Acute (6) Essential hypertension: Code(s): I10 - Essential (primary) hypertension Status: Acute Assessment and Plan: Uncontrolled hypertension. Blood pressure 213/97 Continue metoprolol 100 mg daily p.o. and add hydrochlorothiazide 25 mg daily p.o., losartan 50 mg daily p.o. Patient is on hydralazine 10 mg IV push p.r.n. blood pressure is controlled (7) Protein calorie malnutrition: Code(s): E46 - Unspecified protein-calorie malnutrition Status: Acute Assessment and Plan: Management as above. Add Ensure can to each tray. (8) Diet-controlled type 2 diabetes mellitus: Code(s): E11.9 - Type 2 diabetes mellitus without complications Status: Acute Assessment and Plan: Check HGB A1c. (9) Gait abnormality: Code(s): R26.9 - Unspecified abnormalities of gait and mobility Status: Acute Assessment and Plan: Patient has a general weakness, focal weakness, Physical therapy evaluation. Plan discharge to rehab (10) Dementia: Qualifiers: Dementia type: unspecified type Dementia behavioral disturbance: with behavioral disturbance Qualified Code(s): F03.91 - Unspecified dementia with behavioral disturbance Code(s): F03.90 - Unspecified dementia, unspecified severity, without behavioral disturbance, psychotic disturbance, mood disturbance, and anxiety Status: Acute Assessment and Plan: Maintain fall precaution at all times. (11) Type 2 diabetes mellitus without complication: Qualifiers: Diabetes mellitus alf insulin use: without exterminator termite use Qualified Code(s): E11.9 - Type 2 diabetes mellitus without complications Code(s): E11.9 - Type 2 diabetes mellitus without complications Status: Acute (12) Hypothyroidism: Qualifiers: H
--- NOTE | 2023-03-06 21:37 | PC.NURSE ---
Pt A&O 1, refusing x3 to take her HS meds.
[2023-03-07] VITALS (8 sets, daily range): BP systolic 130–164; BP diastolic 50–82; PULSE 45–72; RESP 12–18; TEMP 35.8–36.2; O2SAT 96–98
[2023-03-07] MEDS: DORZOLAMIDE/TIMOLOL OPHTH SOL 10 ML BOTTLE 1 DROP RIGHT EYE ×2 (08:47→21:09)
[2023-03-07] MEDS: ATORVASTATIN 40 MG TABLET PO (08:47)
[2023-03-07] MEDS: APIXABAN 5 MG TABLET PO ×2 (08:47→17:14)
[2023-03-07] MEDS: ASPIRIN 81 MG ENTERIC TABLET PO (08:47)
[2023-03-07] MEDS: TELMISARTAN 40 MG TABLET 80 MG PO (08:47)
[2023-03-07] MEDS: LOSARTAN POTASSIUM 50 MG TABLET PO (08:47)
[2023-03-07] MEDS: METOPROLOL SUCCINATE EXT REL 100 MG TABCR PO (08:47)
[2023-03-07] MEDS: hydroCHLOROthiazide 25 MG TABLET PO (08:47)
[2023-03-07] MEDS: TOLNAFTATE 1% POWDER 45 GM BTL 1 APPLIC TOPICAL ×2 (08:48→21:12)
[2023-03-07] MEDS: ACETAMINOPHEN 325 MG TABLET 650 MG PO (10:35)
--- NOTE | 2023-03-07 15:20 | PM.IMPN ---
Progress Note: A&P Assessment and Plan (1) Ambulatory dysfunction: Code(s): R26.2 - Difficulty in walking, not elsewhere classified Status: Acute Assessment and Plan: Patient presents with sudden onset weakness; she does not appear to be focal. Initial head CT without any focalized siding. MR of brain with and without contrast suggests Old infarcts involving the bilateral temporal and occipital lobes. 2. Mild nonspecific cerebral white matter disease, which likely represents chronic small vessel ischemic disease. add aspirin 81 mg, Lipitor 40 mg daily p.o., follow-up lipid panel per PCP PT/OT evaluation for rehabilitation. tiller worker evaluation for placement. (2) Multi-infarct dementia: Qualifiers: Dementia severity: moderate Dementia behavioral or psychological symptom: without behavioral, psychotic, or mood disturbance or anxiety Qualified Code(s): F01.B0 - Vascular dementia, moderate, without behavioral disturbance, psychotic disturbance, mood disturbance, and anxiety Code(s): F01.50 - Vascular dementia, unspecified severity, without behavioral disturbance, psychotic disturbance, mood disturbance, and anxiety Status: Acute Assessment and Plan: Patient is unable to care for self. tiller worker evaluation for placement. Per PT OT evaluation, patient will benefit from rehab, awaiting for insurance decisions (3) Yeast dermatitis: Code(s): B37.2 - Candidiasis of skin and nail Status: Acute Assessment and Plan: Apply local antifungal therapy. (4) Abnormal weight loss: Code(s): R63.4 - Abnormal weight loss Status: Acute Assessment and Plan: Patient reports will under with loss of 60 lb. Check prealbumin level. Nutritional evaluation. Patient may benefit from a 3 day calorie count. Consult dietitian (5) Renal cell carcinoma: Qualifiers: Laterality: unspecified laterality Qualified Code(s): C64.9 - Malignant neoplasm of unspecified kidney, except renal pelvis Code(s): C64.9 - Malignant neoplasm of unspecified kidney, except renal pelvis Status: Acute (6) Essential hypertension: Code(s): I10 - Essential (primary) hypertension Status: Acute Assessment and Plan: Uncontrolled hypertension. Blood pressure was 213/97 Now blood pressure is controlled in the target range Decreased metoprolol 100 mg b.i.d. p.o. to 50 mg b.i.d. p.o. because sinus bradycardia Continue hydrochlorothiazide 25 mg daily p.o., increase losartan 50 mg daily p.o. 200 mg daily p.o. Patient is on hydralazine 10 mg IV push p.r.n. (7) Protein calorie malnutrition: Code(s): E46 - Unspecified protein-calorie malnutrition Status: Acute Assessment and Plan: Management as above. Add Ensure can to each tray. (8) Diet-controlled type 2 diabetes mellitus: Code(s): E11.9 - Type 2 diabetes mellitus without complications Status: Acute Assessment and Plan: Check HGB A1c. (9) Gait abnormality: Code(s): R26.9 - Unspecified abnormalities of gait and mobility Status: Acute Assessment and Plan: Patient has a general weakness, focal weakness, Physical therapy evaluation. Plan discharge to rehab (10) Dementia: Qualifiers: Dementia type: unspecified type Dementia behavioral disturbance: with behavioral disturbance Qualified Code(s): F03.91 - Unspecified dementia with behavioral disturbance Code(s): F03.90 - Unspecified dementia, unspecified severity, without behavioral disturbance, psychotic disturbance, mood disturbance, and anxiety Status: Acute Assessment and Plan: Maintain fall precaution at all times. (11) Type 2 diabetes mellitus without complication: Qualifiers: Diabetes mellitus [facility] insulin use: without middle or intermediate school principal use Qualified Code(s): E11.9 - Type 2 diabetes mellitus without complications Code(s): E11.9 - Type 2 diabet
[2023-03-07] MEDS: MEMANTINE 10 MG TABLET 20 MG PO (21:09)
[2023-03-08] VITALS (10 sets, daily range): BP systolic 102–193; BP diastolic 53–82; PULSE 52–81; RESP 14–16; TEMP 35.7–36.2; O2SAT 100
[2023-03-08] MEDS: TELMISARTAN 40 MG TABLET 80 MG PO (08:40)
[2023-03-08] MEDS: APIXABAN 5 MG TABLET PO ×2 (08:40→16:16)
[2023-03-08] MEDS: METOPROLOL SUCCINATE EXT REL 50 MG TABCR PO ×2 (08:40→16:17)
[2023-03-08] MEDS: hydroCHLOROthiazide 25 MG TABLET PO (08:41)
[2023-03-08] MEDS: DORZOLAMIDE/TIMOLOL OPHTH SOL 10 ML BOTTLE 1 DROP RIGHT EYE (08:41)
[2023-03-08] MEDS: ATORVASTATIN 40 MG TABLET PO (08:41)
[2023-03-08] MEDS: ASPIRIN 81 MG ENTERIC TABLET PO (08:41)
[2023-03-08] MEDS: LOSARTAN POTASSIUM 50 MG TABLET 100 MG PO (08:41)
[2023-03-08] MEDS: ACETAMINOPHEN 325 MG TABLET 650 MG PO ×2 (08:45→12:50)
[2023-03-08] MEDS: hydrALAZINE HCL 20 MG/ML VIAL 10 MG IV PUSH (08:46)
[2023-03-08] MEDS: amLODIPine BESYLATE 5 MG TABLET 10 MG PO (09:02)
[2023-03-08] MEDS: TOLNAFTATE 1% POWDER 45 GM BTL 1 APPLIC TOPICAL (09:04)
--- NOTE | 2023-03-08 10:58 | PCPTNOTE ---
On 03/08/23, the student, SISI Denson, provided care and completed [facility] documentation on this patient. I have reviewed the student's documentation and agree with the findings.
--- NOTE | 2023-03-08 16:40 | PM.DS ---
DS: Admitting Diagnosis Discharge Date Today Admitting Diagnosis Ambulatory dysfunction Severe dementia Type 2 diabetes Acquired hypothyroidism Essential hypertension Chronic AFib DS: Discharge Diagnosis Discharge Diagnosis (1) Ambulatory dysfunction: Code(s): R26.2 - Difficulty in walking, not elsewhere classified Status: Acute Assessment and Plan: Patient presents with sudden onset weakness; she does not appear to be focal. Initial head CT without any focalized siding. MR of brain with and without contrast suggests Old infarcts involving the bilateral temporal and occipital lobes. 2. Mild nonspecific cerebral white matter disease, which likely represents chronic small vessel ischemic disease. add aspirin 81 mg, Lipitor 40 mg daily p.o., follow-up lipid panel per PCP PT/OT evaluation for rehabilitation. chamber worker evaluation for placement. Patient's approved to go to rehab in nursing facility (2) Multi-infarct dementia: Qualifiers: Dementia severity: moderate Dementia behavioral or psychological symptom: without behavioral, psychotic, or mood disturbance or anxiety Qualified Code(s): F01.B0 - Vascular dementia, moderate, without behavioral disturbance, psychotic disturbance, mood disturbance, and anxiety Code(s): F01.50 - Vascular dementia, unspecified severity, without behavioral disturbance, psychotic disturbance, mood disturbance, and anxiety Status: Acute Assessment and Plan: Patient is unable to care for self. chamber worker evaluation for placement. Per PT OT evaluation, patient will benefit from rehab, awaiting for insurance decisions (3) Yeast dermatitis: Code(s): B37.2 - Candidiasis of skin and nail Status: Acute Assessment and Plan: Apply local antifungal therapy. (4) Abnormal weight loss: Code(s): R63.4 - Abnormal weight loss Status: Acute Assessment and Plan: Patient reports will under with loss of 60 lb. Consult nutritional evaluation. Patient may benefit from a 3 day calorie count. (5) Renal cell carcinoma: Qualifiers: Laterality: unspecified laterality Qualified Code(s): C64.9 - Malignant neoplasm of unspecified kidney, except renal pelvis Code(s): C64.9 - Malignant neoplasm of unspecified kidney, except renal pelvis Status: Acute (6) Essential hypertension: Code(s): I10 - Essential (primary) hypertension Status: Acute Assessment and Plan: Uncontrolled hypertension. Blood pressure was 213/97 Now blood pressure is controlled in the target range Decreased metoprolol 100 mg b.i.d. p.o. to 50 mg b.i.d. p.o. because sinus bradycardia Continue hydrochlorothiazide 25 mg daily p.o., increase losartan 50 mg daily p.o. 200 mg daily p.o. Patient is on hydralazine 10 mg IV push p.r.n. Blood pressure is controlled, continue current medication and discharge (7) Protein calorie malnutrition: Code(s): E46 - Unspecified protein-calorie malnutrition Status: Acute Assessment and Plan: Management as above. Add Ensure can to each tray. (8) Diet-controlled type 2 diabetes mellitus: Code(s): E11.9 - Type 2 diabetes mellitus without complications Status: Acute Assessment and Plan: Check HGB A1c. (9) Gait abnormality: Code(s): R26.9 - Unspecified abnormalities of gait and mobility Status: Acute Assessment and Plan: Patient has a general weakness, focal weakness, Physical therapy evaluation. Plan discharge to rehab (10) Dementia: Qualifiers: Dementia type: unspecified type Dementia behavioral disturbance: with behavioral disturbance Qualified Code(s): F03.91 - Unspecified dementia with behavioral disturbance Code(s): F03.90 - Unspecified dementia, unspecified severity, without behavioral disturbance, psychotic disturbance, mood disturbance, and anxiety Status: Acute Assessment and Plan:
== END 2023-03-08 17:30 ==
LOC: ANHED 21:45 → ANH3MEDSUR 03-04 07:21
PROVIDERS: Admitting Provider Internal Medicine; Emergency Provider Emergency Medicine; PCP Internal Medicine; Visit Provider Hospitalist
DX: R26.2 Difficulty in walking, not elsewhere classified (principal); F01.50 Vascular dementia, unspecified severity, without behavioral disturbance, psychotic disturbance, mood disturbance, and anxiety; B37.2 Candidiasis of skin and nail; R63.4 Abnormal weight loss; Z68.23 Body mass index [BMI] 23.0-23.9, adult; C64.9 Malignant neoplasm of unspecified kidney, except renal pelvis; I10 Essential (primary) hypertension; E46 Unspecified protein-calorie malnutrition; E11.40 Type 2 diabetes mellitus with diabetic neuropathy, unspecified; E11.65 Type 2 diabetes mellitus with hyperglycemia; R26.9 Unspecified abnormalities of gait and mobility; F03.918 Unspecified dementia, unspecified severity, with other behavioral disturbance; E03.9 Hypothyroidism, unspecified; R53.1 Weakness; L30.8 Other specified dermatitis; R41.0 Disorientation, unspecified; I48.91 Unspecified atrial fibrillation; I44.7 Left bundle-branch block, unspecified; R94.31 Abnormal electrocardiogram [ECG] [EKG]; Z85.520 Personal history of malignant carcinoid tumor of kidney; Z79.01 Long term (current) use of anticoagulants; Z79.899 Other long term (current) drug therapy; Z82.3 Family history of stroke
CPT/HCPCS: 36415; 70450; 70553; 80048; 80053; 81001; 85025; 85027; 85610; 85730; 93005; 96360; 96361; 96374; 96376; 97110; 97161; 97165; 97530; 97535; 99285; A9270; A9577; G0378; J0360; J7030

== ENCOUNTER 2023-03-21 15:55 | Inpatient (IN) | payer MEDICARE, SELFPAY ==
--- NOTE | ~2023-03-21 | XR_ITS ---
XR chest 1V portable DATE: 03/21/2023 16:52 INDICATION: Confusion, weakness TECHNIQUE: Portable upright AP chest on 03/21/2023 at 1650 hours COMPARISON: 01/15/2011 portable AP chest FINDINGS: Cardiomegaly. Aortic arch and descending thoracic aortic calcification. No hilar or mediast inal enlargement is detected. Mild infiltrate or atelectasis is suggested in the left lower lobe. The lungs otherwise appear clear. No pleural effusion or pulmonary vascular congestion or pneumothorax is detected. Levoscoliosis of the upper thoracic spine and dextroscoliosis of the lower thoracic spine. Degenerati ve spurring of the thoracic spine. 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 IMPRESSION: Cardiomegaly, aortic atherosclerosis Left lower lobe infiltrate or atelectasis is suspected Reviewed, dictated and finalized at location A.
--- NOTE | ~2023-03-21 | CT_ITS ---
EXAMINATION: CT brain wo con DATE: 03/21/2023 17:26 INDICATION: Fall. Head injury. TECHNIQUE: Computed tomography (CT) of the head was performed without intravenous contrast. The mA wa s adjusted according to patient size. Iterative reconstruction technique was employed. Exam dose: 60 5.33 mGy-cm total exam DLP. COMPARISON: 03/04/2023 MRI brain 03/03/2023 CT brain FINDINGS: There is atherosclerotic calcification of the bilateral vertebral arteries, basilar artery and bilateral carotid siphon internal carotid arteries and nonspecific diminished attenuation cerebra l white matter, likely due to chronic small vessel ischemic changes. Old left medial occipital infarct. There is a subacute/chronic right temporal occipital infarction. No intracranial hemorrhage. No midline shift or mass effect. No subdural or epidural hematoma is dete cted. There is moderate central and cortical cerebral atrophy. There is an opacified posterior left ethmoid air cell and a few areas of ethmoid air cell soft tissue thickening bilaterally. The paranasal sinuses and mastoid air cells are otherwise normally developed and aerated. No fracture or bone destruction of the cranial vault. IMPRESSION: No significant change since 03/03/2023 Reviewed, dictated and finalized at [facility]. Reviewed, dictated and finalized at location A.
--- NOTE | ~2023-03-21 | CT_ITS ---
EXAMINATION: CT cervical spine wo con DATE: 03/21/2023 17:26 INDICATION: Fall. TECHNIQUE: Computed tomography (CT) of the cervical spine was performed without intravenous contrast. Automated exposure control and iterative reconstruction technique were employed. Exam dose: 158.58 mGy-cm total exam DLP. COMPARISON: None FINDINGS: C1 and C2 are normally aligned and the odontoid process is intact. No fracture or dislocation or locked facet or prevertebral soft tissue swelling is detected. There is moderate degenerative disc disease of the mid and lower cervical spine, degenerative changes apophyseal joints throughout the cervical spine and uncovertebral joint spurring, most prominently a t C5-6 and C6-7. IMPRESSION: Cervical spondylosis; no fracture or dislocation or locked facet Reviewed, dictated and finalized at [facility]. Reviewed, dictated and finalized at location A.
[2023-03-21 15:57] VITALS: BP 147/51; PULSE 59; RESP 18; O2SAT 98
[2023-03-21 16:08] VITALS: O2SAT 100
--- NOTE | 2023-03-21 16:35 | ECG_ITS ---
Measurements Intervals [place] Rate: 56 P: CA: 0 QRS: -61 QRSD: 174 T: 105 QT: 477 QTc: 463 Interpretive Statements ATRIAL FIBRILLATION WITH SLOW VENTRICULAR RESPONSE LEFT AXIS DEVIATION LEFT BUNDLE BRANCH BLOCK BASELINE ARTIFACT- I, II, III, AVR, AVL, AVF, V1 ABNORMAL ECG COMPARED TO ECG 03/03/2023 19:42:53 HEART RATE HAS DECREASED Electronically Signed On 03-21-2023 21:14:35 CDT by Cade Velazquez D.O.
[2023-03-21 16:46] VITALS: BP 126/46; RESP 14; O2SAT 98
[2023-03-21 17:04] LABS: Basophils Percent Auto 0.1 % (0.2-1.2); Eosinophils Percent Auto 0.4 % (0-4.4); Hematocrit 28.4 % (37.0-47.0); Hemoglobin 9.6 g/dL (12.0-15.0); Immature Granulocyte Absolute 0.04 K/mm3 (0.00-0.031); Immature Granulocyte Percent A 0.5 % (0-0.5); Lymphocytes Absolute Auto 0.41 K/mm3 (0.9-3.2); Lymphocytes Percent Auto 5.3 % (18.3-44.2); Mean Corpuscular HGB Conc 33.8 g/dl (32-36); Mean Corpuscular Hemoglobin 31.2 pg (26-34); Mean Corpuscular Volume 92.2 fl (80-100); Mean Platelet Volume 8.5 fl (7.4-10.4); Monocytes Absolute Auto 0.4 K/mm3 (0.1-0.6); Monocytes Percent Auto 5.6 % (2.6-8.5); Neutrophils Absolute Auto 6.9 K/mm3 (1.3-6.7); Neutrophils Percent Auto 88.1 % (45.5-73.1); Platelet Count Result 228 k/mm3 (150-375); Red Blood Count 3.08 M/mm3 (4.2-5.4); Red Cell Distribution Width 13.5 % (11.5-14.5); White Blood Count 7.8 K/mm3 (4.5-10.0)
[2023-03-21 17:13] LABS: Alanine Aminotransferase 27 U/L (6-35); Alkaline Phosphatase 133 U/L (38-126); Anion Gap 4 mmol/L (8-16); Aspartate Amino Transferase 50 U/L (14-36); Blood Urea Nitrogen 30 mg/dL (7-17); Calcium 8.2 mg/dL (8.4-10.2); Carbon Dioxide 36 mmol/L (22-30); Chloride 89 mmol/L (98-107); Estimated CRCL calculation 46 ml/min; Estimated Glomerular Filt Rate > 60; Glucose 148 mg/dL (65-110); Potassium 2.9 mmol/L (3.4-5.0); Sodium 129 mmol/L (137-145)
[2023-03-21 17:19] LABS: INR 2.6
[2023-03-21 17:20] LABS: Partial Thromboplastin Time 65.9 SECONDS (22.3-36.8)
[2023-03-21 17:25] LABS: Troponin I < 0.012 ng/mL (0.000-0.034)
[2023-03-21 17:45] LABS: Appearance Urine Cloudy (Clear); Bacteria Urine 1+ /hpf; Bilirubin Urine Negative (Negative); Blood Urine Trace (Negative); Color Urine Yellow (Yellow); Glucose Urine UA Negative (Negative); Ketones Urine Negative (Negative); Leukocyte Esterase Ur 3+ LEU/UL (Negative); Nitrate Urine Negative (Negative); Protein Urine Trace mg/dL (Negative); RBC Urine 0-2 /hpf (0-2); Specific Grav Ur 1.014 (1.001-1.035); Squamous Epithelial Cell Urine Moderate /hpf (Few); WBC Urine >100 /hpf; pH Urine 5.5 (5.0-9.0)
[2023-03-21 17:49] LABS: Add Urine Microscopic? YES
--- NOTE | 2023-03-21 18:18 | ED.FALL ---
HPI - Fall General Chief Complaint: Fall Stated Complaint: unwitnessed GLF Time Seen by Provider: 03/21/23 16:00 Source: patient Mode of arrival: ambulatory Limitations: no limitations History of Present Illness HPI Narrative: 83-year-old female presents to the emergency department today via EMS from senior living with concerns of an unwitnessed fall. Family is currently at the bedside. Family states that they were called today by the senior living and told that she had an unwitnessed fall found on the ground and they were sending her to the emergency department. Family does state that since her discharge here she has declined. Patient has a history of dementia was brought in the senior living recently after her discharge and her functioning has become less. Mental status wavers day today. Denies any fevers body aches or chills that they are aware of. Denies any known infection. Related Data Home Medications Medication Instructions Recorded Confirmed telmisartan 40 mg tablet 80 mg PO DAILY 10/25/19 03/04/23 ferrous sulfate 325 mg (65 mg 325 mg PO BID 06/13/20 03/08/23 iron) tablet (iron) apixaban 5 mg tablet (Eliquis) 5 mg PO BID 07/29/20 03/04/23 cholecalciferol (vitamin D3) 25 25 mcg PO DAILY 12/16/20 03/08/23 mcg (1,000 unit) tablet (Vitamin D3) lutein 25 mg-zeaxanthin 5 mg cap PO 07/31/21 01/12/23 capsule brimonidine 0.2 % eye drops 1 drp RIGHT EYE BID 09/14/22 03/08/23 dorzolamide 22.3 mg-timolol 6.8 1 drp RIGHT EYE BID 09/14/22 03/04/23 mg/mL eye drops ketorolac 0.5 % eye drops 1 drp RIGHT EYE Q8H 09/14/22 03/08/23 ofloxacin 0.3 % eye drops 1 drp RIGHT EYE QID 09/14/22 03/08/23 memantine 10 mg tablet 20 mg PO HS 03/04/23 03/04/23 Allergies Allergy/AdvReac Type Severity Reaction Status Date / Time simvastatin Allergy Unknown Unknown Verified 01/12/23 08:58 MEPERIDINE HCL AdvReac Severe MADE Uncoded 01/12/23 08:58 PATIENT VERY MEAN [employer]ING [employer] Review of Systems Review of Systems: ROS unobtainable: Yes unobtainable due to medical condition PMFSH Past Medical History Medical History Afib Body mass index (BMI) greater than 40 (09/19/15) Diabetic peripheral neuropathy Essential (primary) hypertension Helicobacter positive gastritis Microcytic anemia Multi-infarct dementia Renal cell carcinoma Renal mass Stroke Type 2 diabetes mellitus with hyperglycemia Surgical History Surgical History H/O: hysterectomy History of arthroplasty of both knees History of cataract surgery both eyes, did not work in right eye Family History Family History Sibling Family history of thyroid disease Cerebrovascular accident Social History Social History Smoking status: Never smoker Second hand tobacco smoke exposure: No Alcohol intake: never Substance use: never Lack of Transportation: No Lack of Food: Never True Current Housing: I Have Housing Concerned About Future Housing: No Difficulty Paying Gas/Electric Bills: No Difficulty Paying for Meds: No Currently Unemployed: No Education: High School Diploma/GED Difficulty w/ Childcare or Family Care: No Living arrangements: with family Gender identity (if verbalized by the patient): Male Spiritual care concerns: No Exam Const: General: cooperative, healthy appearing, comfortable, no acute distress and well developed Other: AOx2 at baseline HENMT: Head: normal to inspection Eyes: General: appearance normal, both eyes and all related structures Resp: Effort & Inspection: normal respiratory effort and able to speak in complete sentences Auscultation: clear to auscultation bilaterally Cardio: Rate: bradycardic Rhythm: regular rhythm Heart sounds: S1 normal heart sound p
[2023-03-21] MEDS: POTASSIUM CHLORIDE INJ 40 MEQ in SODIUM CHLORIDE 0.9% IV 500 ML 130 MEQ IVPB (18:35)
[2023-03-21] MEDS: levoFLOXacin 750 MG/D5W 150 ML 750 MG/150 ML BAG 100 MG IVPB (18:36)
--- NOTE | 2023-03-21 19:22 | PM.IMHP ---
H&P: HPI History of Present Illness Date/Time: 03/21/23 19:22 Chief Complaint: Fall Narrative: This is an 83-year-old female patient who is very hard of hearing and having difficulty answering questions. Her is also at the bedside and also very hard of hearing. The patient has some problems with her memory as well. The patient is from [facility] for rehab. The patient was scheduled to go home tomorrow. The patient's family was notified today because the [facility] explained that the patient had a unwitnessed ground level fall and that they were sending the patient to the emergency room. No fever chills. The patient had been discharged from this hospital on 03/08/2023. She had been here for ambulatory dysfunction. And she also has dementia. Her H&H is 9.6 and 28.4 today. Neutrophil percentage 88.1. Sodium is 129 and potassium 2.9. BUN is 30 creatinine is normal. Glucose is 148. Her urine was found to be positive for UTI. The patient was supplemented with potassium. She was given Levaquin in the emergency room to. She has no white count. Her chest x-ray was read as cardiomegaly aortic atherosclerosis left lower lobe infiltrate or atelectasis is suspected. Head CT was read as no significant change since 03/23/2023. Cervical spine CT read as cervical spondylosis no fracture or dislocation or locked facet. The patient is being admitted to inpatient status on the date of service of 03/21/2023 Review of Systems Review of Systems: All systems reviewed & are unremarkable except as noted in HPI and below Constitutional: Constitutional: Reports as per HPI and Reports no additional constitutional complaints Eyes: Eyes: Reports as per HPI and Reports no additional eye complaints ENT: Reports system reviewed and no additional complaints, except as documented and Reports Normal hearing present Cardiovascular: Cardiovascular: Reports no additional cardiovascular complaints Respiratory: Respiratory: Reports no additional respiratory complaints and Reports no additional respiratory complaints Gastrointestinal: Gastrointestinal: Reports as per HPI and Reports no additional gastrointestinal complaints Musculoskeletal: Musculoskeletal: Reports no additional musculoskeletal complaints Integumentary/Breasts: Skin/Breast: Reports system reviewed and no additional complaints, except as docu and Reports as per HPI Neurologic: Reports system reviewed and no additional complaints, except as documented, Reports as per HPI and Reports Normal hearing present Psychiatric: Psychiatric: Reports no additional psychiatric complaints and Reports as per HPI Endocrine: Endocrine: Reports no additional endocrine complaints Hematologic/Lymphatic: Hematologic/Lymphatic: Reports no additional hematologic/lymphatic complaints Allergic/Immunologic: Allergic/Immunologic: Reports no additional allergic/immunologic complaints [facility] Past Medical History Medical History (Updated 03/21/23 @ 22:41 by Tamera Valencia NP) Afib Body mass index (BMI) greater than 40 (09/19/15) Diabetic peripheral neuropathy Essential (primary) hypertension Helicobacter positive gastritis History of CVA (cerebrovascular accident) Microcytic anemia Multi-infarct dementia Obstructive sleep apnea Renal cell carcinoma Renal mass Stroke Type 2 diabetes mellitus with hyperglycemia Surgical History Surgical History (Updated 03/21/23 @ 22:41 by Tamera Valencia NP) H/O inguinal hernia repair H/O: hysterectomy History of arthroplasty of both knees History of cataract surgery both eyes, did not work in right eye Family History Family History Sibling Family history of thyroid disease Cerebrovascular accident Social History Social History (Updated 03/21/23 @ 22:48 by Tamera Valencia NP) Social History: She typically lives with her but is currently at [facility] for rehab.
[2023-03-21 19:40] VITALS: BP 134/63; PULSE 77; RESP 18; TEMP 36.5; O2SAT 96
[2023-03-21 19:53] VITALS: BMI 20.4
[2023-03-21 20:00] VITALS: PULSE 61
[2023-03-21 21:37] LABS: Glucose Point of Care 100 mg/dl (65-105)
[2023-03-21] MEDS: SODIUM CHLORIDE 0.9% IV 1,000 ML 75 ML IV CONT (21:51)
[2023-03-21 22:00] VITALS: BP 134/63; PULSE 77; RESP 18; TEMP 36.5; O2SAT 96
[2023-03-21 23:58] LABS: Anion Gap 4 mmol/L (8-16); Blood Urea Nitrogen 25 mg/dL (7-17); Calcium 8.2 mg/dL (8.4-10.2); Carbon Dioxide 37 mmol/L (22-30); Chloride 91 mmol/L (98-107); Estimated CRCL calculation 46 ml/min; Estimated Glomerular Filt Rate > 60; Glucose 103 mg/dL (65-110); Potassium 3.3 mmol/L (3.4-5.0); Sodium 132 mmol/L (137-145)
[2023-03-22] VITALS (11 sets, daily range): BP systolic 107–144; BP diastolic 44–69; PULSE 54–85; RESP 14–18; TEMP 36.3–36.8; O2SAT 95–100
[2023-03-22 06:44] LABS: Eosinophils Percent Auto 0.3 % (0-4.4); Hematocrit 26.3 % (37.0-47.0); Hemoglobin 8.7 g/dL (12.0-15.0); Immature Granulocyte Absolute 0.04 K/mm3 (0.00-0.031); Immature Granulocyte Percent A 0.6 % (0-0.5); Lymphocytes Absolute Auto 0.44 K/mm3 (0.9-3.2); Lymphocytes Percent Auto 6.3 % (18.3-44.2); Mean Corpuscular HGB Conc 33.1 g/dl (32-36); Mean Corpuscular Hemoglobin 30.9 pg (26-34); Mean Corpuscular Volume 93.3 fl (80-100); Mean Platelet Volume 8.9 fl (7.4-10.4); Monocytes Absolute Auto 0.5 K/mm3 (0.1-0.6); Monocytes Percent Auto 6.9 % (2.6-8.5); Neutrophils Percent Auto 85.9 % (45.5-73.1); Platelet Count Result 203 k/mm3 (150-375); Red Blood Count 2.82 M/mm3 (4.2-5.4); Red Cell Distribution Width 13.2 % (11.5-14.5); White Blood Count 6.9 K/mm3 (4.5-10.0)
[2023-03-22 06:51] LABS: Potassium 3.1 mmol/L (3.4-5.0)
[2023-03-22 06:55] LABS: Hemoglobin A1C 5.6 % (<5.7)
[2023-03-22 06:56] LABS: Anion Gap 4 mmol/L (8-16); Blood Urea Nitrogen 21 mg/dL (7-17); Calcium 7.8 mg/dL (8.4-10.2); Carbon Dioxide 35 mmol/L (22-30); Chloride 93 mmol/L (98-107); Estimated CRCL calculation 53 ml/min; Estimated Glomerular Filt Rate > 60; Glucose 108 mg/dL (65-110); Magnesium 1.6 mg/dL (1.6-2.3); Phosphorus 2.4 mg/dL (2.5-4.5); Sodium 132 mmol/L (137-145)
[2023-03-22 07:28] LABS: Glucose Point of Care 100 mg/dl (65-105)
[2023-03-22] MEDS: ATORVASTATIN 40 MG TABLET PO (09:06)
[2023-03-22] MEDS: amLODIPine BESYLATE 5 MG TABLET 10 MG PO (09:06)
[2023-03-22] MEDS: APIXABAN 5 MG TABLET PO ×2 (09:06→21:30)
[2023-03-22] MEDS: CHOLECALCIFEROL 1,000 UNITS TABLET 1000 UNITS PO (09:06)
[2023-03-22] MEDS: POTASSIUM CHLORIDE 20 MEQ ER TABLET 60 MEQ PO (09:06)
[2023-03-22] MEDS: TELMISARTAN 40 MG TABLET 80 MG PO (09:06)
[2023-03-22] MEDS: ASPIRIN 81 MG ENTERIC TABLET PO (09:06)
[2023-03-22] MEDS: SODIUM CHLORIDE 0.9% IV 1,000 ML 75 ML IV CONT (09:07)
[2023-03-22] MEDS: MEMANTINE 10 MG TABLET 20 MG PO (09:07)
[2023-03-22] MEDS: METOPROLOL SUCCINATE EXT REL 50 MG TABCR PO ×2 (09:07→21:34)
[2023-03-22] MEDS: FERROUS SULFATE 325 MG TABLET DR PO ×2 (09:07→18:03)
[2023-03-22] MEDS: DICLOFENAC SODIUM 1% 100 GM GEL (*BKC) TOPICAL ×4 (09:08→21:31)
[2023-03-22] MEDS: BRIMONIDINE TARTRATE 0.2% OP SOLN 5 ML BTL 1 DROP RIGHT EYE ×2 (09:08→21:30)
[2023-03-22] MEDS: DORZOLAMIDE/TIMOLOL OPHTH SOL 10 ML BOTTLE 1 DROP RIGHT EYE ×2 (09:09→21:31)
[2023-03-22] MEDS: OFLOXACIN 0.3% OPHTH SOLN 5 ML BTL 1 DROP RIGHT EYE ×4 (09:09→21:33)
[2023-03-22 11:25] LABS: Glucose Point of Care 139 mg/dl (65-105)
--- NOTE | 2023-03-22 12:49 | PM.IMPN ---
Progress Note: A&P Assessment and Plan (1) Acute UTI: Code(s): N39.0 - Urinary tract infection, site not specified Status: Acute Assessment and Plan: Patient started on IV Levaquin which is to be continued. She was admitted for altered LOC in the setting of UTI with urinalysis suspicious for UTI. Urine culture pending. (2) Altered mental state: Code(s): R41.82 - Altered mental status, unspecified Status: Acute Assessment and Plan: Patient with advanced multi infarct dementia, no family present. Patient alert to self only. (3) Acute hyponatremia: Code(s): E87.1 - Hypo-osmolality and hyponatremia Status: Acute Assessment and Plan: Admitted with NA 129 along with hypokalemia, conservative management of gentle sodium correction (4) Acute hypokalemia: Code(s): E87.6 - Hypokalemia Status: Acute Assessment and Plan: Initial potassium 2.9. Oral replacements ordered (5) Left lower lobe pulmonary infiltrate: Code(s): R91.8 - Other nonspecific abnormal finding of lung field Status: Acute Assessment and Plan: Patient on Levaquin for UTI. No shortness of breath or fever/cough/chills. Suspect this may just be atelectasis related to debility. (6) Type 2 diabetes mellitus with hyperglycemia: Code(s): E11.65 - Type 2 diabetes mellitus with hyperglycemia Status: Acute Assessment and Plan: Home meds with ACHS checks and supplemental insulin as needed. (7) Essential hypertension: Code(s): I10 - Essential (primary) hypertension Status: Acute Assessment and Plan: Stable. Continue home medications (8) Obstructive sleep apnea: Code(s): G47.33 - Obstructive sleep apnea (adult) (pediatric) Status: Acute Plan Admit for treatment of UTI Case management consult for SNF placement?? PT/OT for physical debility with discharge planning assistance Gently correct sodium and potassium. Time Spent With Patient Time with patient: 25 - 35 minutes Subjective Date/time seen: 03/22/23 14:00 Interval history: Patient admitted for UTI and unwitnessed fall at long term facility. On examination patient is confused thinks it is 1945. Patient denies any pain difficulty breathing nausea vomiting chest pain abdominal pain shortness a breath. She only states that she is ready for lunch. No family present to assist with ROS and HPI. Review of Systems Review of Systems: ROS unobtainable: Yes unobtainable due to mental status Exam Narrative: GENERAL: Chronically ill-appearing elderly female lying supine on the bed awake and alert on oriented only to self. HEENT: Pupils are equally round and briskly reactive to light. Extraocular muscles are intact. Oral mucous membranes are moist without lesions. NECK: The patient has no noted JVD. No adenopathy is appreciated. CHEST/LUNGS: Lungs are clear bilaterally without rhonchi, rales, or wheezes. There is no tenderness to the chest wall. HEART: The patient has a regular rate and rhythm. No murmurs, rubs, or gallops are appreciated. Distal pulses are 2+. No carotid bruits appreciated. ABDOMEN: The patient?s abdomen is soft, nontender, and nondistended. Bowel sounds are positive. No organomegaly is appreciated. No masses are appreciated. There are no peritoneal signs. EXTREMITIES: The patient has no peripheral edema. There is no focal long bone tenderness or deformity. SKIN: The patient?s skin is warm and dry, without rashes or lesions. PSYCHIATRIC: Patient has a flat affect alert and oriented only to self thinks it is 1943 and she does not where she is currently or why. NEUROLOGIC: There are no gross deficits to the cranial nerves. No focality. Objective Data Vital Signs Vital Signs: Vital Signs - 24 hr 03/21/23 15:57 03/21/23 16:08 03/21/23 16:46 Temperature Pulse Rate 59 L Respiratory Rate 18 14 Blood Pressure 147/51 H 126/46 L Pulse Oximetry 98 100
--- NOTE | 2023-03-22 13:19 | PCCCNOTE ---
On 03/22/23, the student, [Candi Vargas ], provided care and completed [employer] documentation on this patient. I have reviewed the student's documentation and agree with the findings.
--- NOTE | 2023-03-22 15:04 | PCPTNOTE ---
On 03/22/23, the student, JORGE Toussaint, provided care and completed [facility] documentation on this patient. I have reviewed the student's documentation and agree with the findings.
[2023-03-22] MEDS: KETOROLAC 0.5% OP SOLN 5 ML BOTTLE 1 DROP RIGHT EYE ×2 (15:57→21:33)
[2023-03-22 16:34] LABS: Glucose Point of Care 120 mg/dl (65-105)
[2023-03-22] MEDS: POTASSIUM/PHOSPHORUS/SODIUM 1.5 GM PACKET 1 PACKET PO (18:03)
[2023-03-22 21:09] LABS: Glucose Point of Care 144 mg/dl (65-105)
[2023-03-22] MEDS: TOLNAFTATE 1% POWDER 45 GM BTL 1 APPLIC TOPICAL (21:32)
[2023-03-22] MEDS: MEMANTINE 10 MG TABLET PO (21:32)
[2023-03-23] VITALS (10 sets, daily range): BP systolic 117–150; BP diastolic 44–56; PULSE 50–71; RESP 14–16; TEMP 36.7–37.2; O2SAT 98–100; BMI 20.4
[2023-03-23] MEDS: SODIUM CHLORIDE 0.9% IV 1,000 ML 75 ML IV CONT (00:53)
[2023-03-23] MEDS: KETOROLAC 0.5% OP SOLN 5 ML BOTTLE 1 DROP RIGHT EYE ×3 (05:10→21:34)
[2023-03-23 06:02] LABS: Hemoglobin 7.9 g/dL (12.0-15.0); Mean Corpuscular HGB Conc 32.9 g/dl (32-36); Mean Corpuscular Hemoglobin 31.3 pg (26-34); Mean Corpuscular Volume 95.2 fl (80-100); Platelet Count Result 176 k/mm3 (150-375); Red Blood Count 2.52 M/mm3 (4.2-5.4); Red Cell Distribution Width 13.6 % (11.5-14.5); White Blood Count 5.2 K/mm3 (4.5-10.0)
[2023-03-23 06:10] LABS: Anion Gap 5 mmol/L (8-16); Blood Urea Nitrogen 20 mg/dL (7-17); Calcium 7.6 mg/dL (8.4-10.2); Carbon Dioxide 31 mmol/L (22-30); Chloride 95 mmol/L (98-107); Estimated CRCL calculation 46 ml/min; Estimated Glomerular Filt Rate > 60; Glucose 98 mg/dL (65-110); Potassium 3.9 mmol/L (3.4-5.0); Sodium 131 mmol/L (137-145)
[2023-03-23 08:12] LABS: Glucose Point of Care 98 mg/dl (65-105)
[2023-03-23] MEDS: FERROUS SULFATE 325 MG TABLET DR PO ×2 (08:50→17:19)
[2023-03-23] MEDS: TELMISARTAN 40 MG TABLET 80 MG PO (08:50)
[2023-03-23] MEDS: METOPROLOL SUCCINATE EXT REL 50 MG TABCR PO ×2 (08:50→21:43)
[2023-03-23] MEDS: SODIUM CHLORIDE 500 MG TABLET PO ×2 (08:50→17:19)
[2023-03-23] MEDS: CHOLECALCIFEROL 1,000 UNITS TABLET 1000 UNITS PO (08:52)
[2023-03-23] MEDS: amLODIPine BESYLATE 5 MG TABLET 10 MG PO (08:52)
[2023-03-23] MEDS: APIXABAN 5 MG TABLET PO ×2 (08:52→21:42)
[2023-03-23] MEDS: ATORVASTATIN 40 MG TABLET PO (08:53)
[2023-03-23] MEDS: MEMANTINE 10 MG TABLET PO ×2 (08:53→21:42)
[2023-03-23] MEDS: DICLOFENAC SODIUM 1% 100 GM GEL (*BKC) TOPICAL ×4 (08:53→21:36)
[2023-03-23] MEDS: ASPIRIN 81 MG ENTERIC TABLET PO (08:53)
[2023-03-23] MEDS: BRIMONIDINE TARTRATE 0.2% OP SOLN 5 ML BTL 1 DROP RIGHT EYE ×2 (08:54→21:32)
[2023-03-23] MEDS: DORZOLAMIDE/TIMOLOL OPHTH SOL 10 ML BOTTLE 1 DROP RIGHT EYE ×2 (08:54→21:33)
[2023-03-23] MEDS: OFLOXACIN 0.3% OPHTH SOLN 5 ML BTL 1 DROP RIGHT EYE ×4 (08:54→21:34)
--- NOTE | 2023-03-23 09:41 | PM.IMPN ---
Progress Note: A&P Assessment and Plan (1) Acute UTI: Code(s): N39.0 - Urinary tract infection, site not specified Status: Acute Assessment and Plan: Continue Rocephin pending urine culture (2) Altered mental state: Code(s): R41.82 - Altered mental status, unspecified Status: Acute Assessment and Plan: Suspect acute UTI on baseline advanced dementia as cause of apparent encephalopathy (3) Anemia: Qualifiers: Anemia type: unspecified type Qualified Code(s): D64.9 - Anemia, unspecified Code(s): D64.9 - Anemia, unspecified Status: Acute Assessment and Plan: Asymptomatic. Will check Hemoccult. (4) Acute hyponatremia: Code(s): E87.1 - Hypo-osmolality and hyponatremia Status: Acute Assessment and Plan: Stablely low, gentle correction started with 500 mg BID salt tabs. Recheck tomorrow. (5) Dementia: Code(s): F03.90 - Unspecified dementia, unspecified severity, without behavioral disturbance, psychotic disturbance, mood disturbance, and anxiety Status: Acute Assessment and Plan: Advanced dementia noted. Patient will need SNF/ECF placement on discharge. (6) Acute hypokalemia: Code(s): E87.6 - Hypokalemia Status: Acute Assessment and Plan: Improved with treatment, will monitor (7) Type 2 diabetes mellitus with hyperglycemia: Code(s): E11.65 - Type 2 diabetes mellitus with hyperglycemia Status: Acute Assessment and Plan: ACHS glucose checks and corrective insulin use. Plan Continue Rocephin pending urine culture Gently correct hyponatremia Maintain electrolytes with diet primarily, recheck with morning labs. SNF/ECF placement upon discharge Time Spent With Patient Time with patient: 25 - 35 minutes Subjective Date/time seen: 03/23/23 09:41 Interval history: 03/22 Rounding: Patient admitted for UTI and unwitnessed fall at alf facility. On examination patient is confused thinks it is 194. Patient denies any pain difficulty breathing nausea vomiting chest pain abdominal pain shortness a breath. She only states that she is ready for lunch. No family present to assist with ROS and HPI. 03/23 Rounding: Labs indicate decreasing Hemoglobin. Patient denies any bleeding or melanotic stools. Patient continues to be confused about why she is in the hospital. HPI/ROS limited due to mental status Review of Systems Review of Systems: ROS unobtainable: Yes unobtainable due to mental status Exam Narrative: GENERAL: Chronically ill-appearing elderly female lying supine on the bed awake and alert on oriented only to self. HEENT: Pupils are equally round and briskly reactive to light. Extraocular muscles are intact. Oral mucous membranes are moist without lesions. NECK: The patient has no noted JVD. No adenopathy is appreciated. CHEST/LUNGS: Lungs are clear bilaterally without rhonchi, rales, or wheezes. There is no tenderness to the chest wall. HEART: The patient has a regular rate and rhythm. No murmurs, rubs, or gallops are appreciated. Distal pulses are 2+. No carotid bruits appreciated. ABDOMEN: The patient?s abdomen is soft, nontender, and nondistended. Bowel sounds are positive. No organomegaly is appreciated. No masses are appreciated. There are no peritoneal signs. EXTREMITIES: The patient has no peripheral edema. There is no focal long bone tenderness or deformity. SKIN: The patient?s skin is warm and dry, without rashes or lesions. PSYCHIATRIC: Patient has a flat affect alert and oriented only to self NEUROLOGIC: There are no gross deficits to the cranial nerves. No focality. Objective Data Vital Signs Vital Signs: Vital Signs - 24 hr 03/22/23 11:29 03/22/23 13:17 03/22/23 14:00 Temperature 36.8 C Pulse Rate 65 Respiratory Rate 18 Blood Pressure 107/56 L Pulse Oximetry 100 Oxygen Delivery Room Air Room Air 03/22/23 12:00
[2023-03-23 11:38] LABS: Glucose Point of Care 161 mg/dl (65-105)
[2023-03-23 11:40] LABS: Iron 35 ug/dL (37-170)
[2023-03-23 11:49] LABS: Percent Iron Saturation 23 % (20-50)
[2023-03-23 12:43] LABS: Folic Acid 11.9 ng/mL (2.76->20)
[2023-03-23 16:35] LABS: Glucose Point of Care 170 mg/dl (65-105)
[2023-03-23] MEDS: levoFLOXacin 750 MG/D5W 150 ML 750 MG/150 ML BAG 100 MG IVPB (17:19)
[2023-03-23 21:14] LABS: Glucose Point of Care 131 mg/dl (65-105)
[2023-03-24] VITALS (11 sets, daily range): BP systolic 111–137; BP diastolic 39–58; PULSE 51–84; RESP 16–18; TEMP 36.4–37.1; O2SAT 96–100
[2023-03-24] MEDS: KETOROLAC 0.5% OP SOLN 5 ML BOTTLE 1 DROP RIGHT EYE ×3 (05:34→20:43)
[2023-03-24 06:12] LABS: Hematocrit 24.6 % (37.0-47.0); Mean Corpuscular HGB Conc 32.5 g/dl (32-36); Mean Corpuscular Hemoglobin 31.5 pg (26-34); Mean Corpuscular Volume 96.9 fl (80-100); Mean Platelet Volume 8.7 fl (7.4-10.4); Platelet Count Result 174 k/mm3 (150-375); Red Blood Count 2.54 M/mm3 (4.2-5.4); Red Cell Distribution Width 13.7 % (11.5-14.5); White Blood Count 5.3 K/mm3 (4.5-10.0)
[2023-03-24 06:36] LABS: Anion Gap 7 mmol/L (8-16); Blood Urea Nitrogen 21 mg/dL (7-17); Calcium 7.8 mg/dL (8.4-10.2); Carbon Dioxide 27 mmol/L (22-30); Chloride 94 mmol/L (98-107); Estimated CRCL calculation 46 ml/min; Estimated Glomerular Filt Rate > 60; Glucose 101 mg/dL (65-110); Potassium 4.2 mmol/L (3.4-5.0); Sodium 128 mmol/L (137-145)
[2023-03-24 07:31] LABS: Glucose Point of Care 96 mg/dl (65-105)
--- NOTE | 2023-03-24 08:13 | PM.IMPN ---
Progress Note: A&P Assessment and Plan (1) Acute UTI: Code(s): N39.0 - Urinary tract infection, site not specified Status: Acute Assessment and Plan: Urine culture was inconclusive due to contaminate Has completed IV Levaquin dose for uncomplicated UTI. D/c now. (2) Altered mental state: Code(s): R41.82 - Altered mental status, unspecified Status: Acute Assessment and Plan: Suspect acute UTI on baseline advanced dementia as cause of apparent encephalopathy. -symptoms resolved with IV antibiotics (3) Anemia: Qualifiers: Anemia type: unspecified type Qualified Code(s): D64.9 - Anemia, unspecified Code(s): D64.9 - Anemia, unspecified Status: Acute Assessment and Plan: Asymptomatic. Will check Hemoccult. (4) Acute hyponatremia: Code(s): E87.1 - Hypo-osmolality and hyponatremia Status: Acute Assessment and Plan: Stablely low, gentle correction started with 500 mg BID salt tabs. Recheck tomorrow. Na 128 down from 131 Continue to trend (5) Dementia: Code(s): F03.90 - Unspecified dementia, unspecified severity, without behavioral disturbance, psychotic disturbance, mood disturbance, and anxiety Status: Acute Assessment and Plan: Advanced dementia noted. Patient will need SNF/ECF placement on discharge. (6) Acute hypokalemia: Code(s): E87.6 - Hypokalemia Status: Acute Assessment and Plan: Improved with treatment, will monitor (7) Type 2 diabetes mellitus with hyperglycemia: Code(s): E11.65 - Type 2 diabetes mellitus with hyperglycemia Status: Acute Assessment and Plan: ACHS glucose checks and corrective insulin use. Plan Gently correct hyoonatremia Maintain electrolytes with diet primarily, recheck with morning labs. SNF/ECF placement upon discharge Subjective Date/time seen: 03/24/23 08:13 Interval history: 03/22 Rounding: Patient admitted for UTI and unwitnessed fall at residential facility. On examination patient is confused thinks it is 1945. Patient denies any pain difficulty breathing nausea vomiting chest pain abdominal pain shortness a breath. She only states that she is ready for lunch. No family present to assist with ROS and HPI. 03/23 Rounding: Labs indicate decreasing Hemoglobin. Patient denies any bleeding or melanotic stools. Patient continues to be confused about why she is in the hospital. HPI/ROS limited due to mental status 03/24: Patient seems much improved today compared with previous notes and family reports. I spoke with the [id number] who said they brought her in initially because she was just more confused, lethargic, and was unable to feed herself which is not her baseline. Today she is conversational in follows commands appropriately and is able to feed herself. When I see her she is up working with PT. she has completed her IV antibiotics for UTI so I will DC her Levaquin today. Her sodium dipped to 128. Sodium chloride tablets 500 mg b.i.d. ordered will follow labs tomorrow and if sodium is improved will discharge to [facility]. Review of Systems Review of Systems: All systems reviewed & are unremarkable except as noted in HPI and below Exam Narrative: General: well-nourished, chronically ill appearing 83-year-old female, walking in room with therapy, comfortable, NARD Neuro: awake, alert and oriented person and situation, speech clear, no focal neuro deficits noted HEENMT: normocephalic, atraumatic, EOMI, sclerae anicteric, moist oral mucosa Respiratory: Clear to auscultation bilaterally without crackles, rhonchi or wheezes, nonlabored breathing Cardio: regular rate, regular rhythm with S1-S2 Abdomen: nondistended, normoactive bowel sounds, soft, nontender to palpation Extremities: no edema, erythema, or tenderness to palpation, DP pulses 2+ bilaterally Skin: no rashes or lesions, warm and dry Psych: appropriate
[2023-03-24] MEDS: METOPROLOL SUCCINATE EXT REL 50 MG TABCR PO ×2 (08:59→20:41)
[2023-03-24] MEDS: FERROUS SULFATE 325 MG TABLET DR PO ×2 (08:59→17:37)
[2023-03-24] MEDS: TELMISARTAN 40 MG TABLET 80 MG PO (09:00)
[2023-03-24] MEDS: SODIUM CHLORIDE 500 MG TABLET PO ×2 (09:01→17:36)
[2023-03-24] MEDS: MEMANTINE 10 MG TABLET PO ×2 (09:01→20:41)
[2023-03-24] MEDS: DORZOLAMIDE/TIMOLOL OPHTH SOL 10 ML BOTTLE 1 DROP RIGHT EYE ×2 (09:02→20:42)
[2023-03-24] MEDS: BRIMONIDINE TARTRATE 0.2% OP SOLN 5 ML BTL 1 DROP RIGHT EYE ×2 (09:02→20:43)
[2023-03-24] MEDS: OFLOXACIN 0.3% OPHTH SOLN 5 ML BTL 1 DROP RIGHT EYE ×4 (09:03→20:42)
[2023-03-24] MEDS: amLODIPine BESYLATE 5 MG TABLET 10 MG PO (09:06)
[2023-03-24] MEDS: CHOLECALCIFEROL 1,000 UNITS TABLET 1000 UNITS PO (09:06)
[2023-03-24] MEDS: ATORVASTATIN 40 MG TABLET PO (09:06)
[2023-03-24] MEDS: DICLOFENAC SODIUM 1% 100 GM GEL (*BKC) TOPICAL ×4 (09:06→20:42)
[2023-03-24] MEDS: APIXABAN 5 MG TABLET PO ×2 (09:06→20:43)
[2023-03-24] MEDS: ASPIRIN 81 MG ENTERIC TABLET PO (09:06)
[2023-03-24 11:39] LABS: Glucose Point of Care 168 mg/dl (65-105)
[2023-03-24 16:49] LABS: Glucose Point of Care 166 mg/dl (65-105)
[2023-03-24 19:32] LABS: Glucose Point of Care 138 mg/dl (65-105)
[2023-03-24] MEDS: HYDROcodone/acetaminophen (*CRX) 5-325 MG TABLET 1 TAB PO (21:02)
[2023-03-25] VITALS: PULSE 51
[2023-03-25 04:00] VITALS: PULSE 53
[2023-03-25] MEDS: KETOROLAC 0.5% OP SOLN 5 ML BOTTLE 1 DROP RIGHT EYE ×2 (05:35→13:09)
[2023-03-25 06:00] VITALS: BP 124/53; PULSE 66; RESP 12; TEMP 35.9; O2SAT 100
[2023-03-25 06:43] LABS: Basophils Percent Auto 0.2 % (0.2-1.2); Eosinophils Absolute Auto 0.1 K/mm3 (0-0.3); Hematocrit 22.7 % (37.0-47.0); Hemoglobin 7.3 g/dL (12.0-15.0); Immature Granulocyte Absolute 0.01 K/mm3 (0.00-0.031); Immature Granulocyte Percent A 0.2 % (0-0.5); Lymphocytes Absolute Auto 0.54 K/mm3 (0.9-3.2); Mean Corpuscular HGB Conc 32.2 g/dl (32-36); Mean Corpuscular Hemoglobin 30.9 pg (26-34); Mean Corpuscular Volume 96.2 fl (80-100); Mean Platelet Volume 9.1 fl (7.4-10.4); Monocytes Absolute Auto 0.3 K/mm3 (0.1-0.6); Monocytes Percent Auto 6.2 % (2.6-8.5); Neutrophils Absolute Auto 3.6 K/mm3 (1.3-6.7); Neutrophils Percent Auto 79.4 % (45.5-73.1); Platelet Count Result 160 k/mm3 (150-375); Red Blood Count 2.36 M/mm3 (4.2-5.4); Red Cell Distribution Width 13.7 % (11.5-14.5); White Blood Count 4.5 K/mm3 (4.5-10.0)
[2023-03-25 06:54] LABS: Alanine Aminotransferase 29 U/L (6-35); Albumin Level 2.5 g/dL (3.5-5.1); Alkaline Phosphatase 106 U/L (38-126); Anion Gap 4 mmol/L (8-16); Aspartate Amino Transferase 55 U/L (14-36); Bilirubin,Total 0.6 mg/dL (0.2-1.3); Blood Urea Nitrogen 20 mg/dL (7-17); Calcium 7.7 mg/dL (8.4-10.2); Carbon Dioxide 31 mmol/L (22-30); Chloride 95 mmol/L (98-107); Estimated CRCL calculation 53 ml/min; Estimated Glomerular Filt Rate > 60; Glucose 106 mg/dL (65-110); Potassium 3.9 mmol/L (3.4-5.0); Sodium 130 mmol/L (137-145)
[2023-03-25 07:32] LABS: Glucose Point of Care 101 mg/dl (65-105)
[2023-03-25 08:00] VITALS: PULSE 60
[2023-03-25] MEDS: FERROUS SULFATE 325 MG TABLET DR PO (08:25)
[2023-03-25] MEDS: MEMANTINE 10 MG TABLET PO (08:25)
[2023-03-25 08:26] VITALS: PULSE 47
[2023-03-25] MEDS: TELMISARTAN 40 MG TABLET 80 MG PO (08:26)
[2023-03-25] MEDS: SODIUM CHLORIDE 500 MG TABLET PO (08:26)
[2023-03-25] MEDS: BRIMONIDINE TARTRATE 0.2% OP SOLN 5 ML BTL 1 DROP RIGHT EYE (08:27)
[2023-03-25] MEDS: DORZOLAMIDE/TIMOLOL OPHTH SOL 10 ML BOTTLE 1 DROP RIGHT EYE (08:27)
[2023-03-25] MEDS: DICLOFENAC SODIUM 1% 100 GM GEL (*BKC) TOPICAL ×2 (08:28→13:09)
[2023-03-25] MEDS: OFLOXACIN 0.3% OPHTH SOLN 5 ML BTL 1 DROP RIGHT EYE ×2 (08:31→13:09)
[2023-03-25] MEDS: CHOLECALCIFEROL 1,000 UNITS TABLET 1000 UNITS PO (08:31)
[2023-03-25] MEDS: ASPIRIN 81 MG ENTERIC TABLET PO (08:31)
[2023-03-25] MEDS: APIXABAN 5 MG TABLET PO (08:31)
[2023-03-25] MEDS: ATORVASTATIN 40 MG TABLET PO (08:31)
--- NOTE | 2023-03-25 08:56 | PM.DS ---
DS: Admitting Diagnosis Discharge Date March 25 Admitting Diagnosis Acute UTI DS: Discharge Diagnosis Discharge Diagnosis (1) Acute UTI: Code(s): N39.0 - Urinary tract infection, site not specified Status: Acute Assessment and Plan: Urine culture was inconclusive due to contaminate Has completed IV Levaquin dose for uncomplicated UTI. D/c now. (2) Altered mental state: Code(s): R41.82 - Altered mental status, unspecified Status: Acute Assessment and Plan: Suspect acute UTI on baseline advanced dementia as cause of apparent encephalopathy. -symptoms resolved with IV antibiotics (3) Anemia: Qualifiers: Anemia type: unspecified type Qualified Code(s): D64.9 - Anemia, unspecified Code(s): D64.9 - Anemia, unspecified Status: Acute Assessment and Plan: Asymptomatic. Will check Hemoccult. (4) Acute hyponatremia: Code(s): E87.1 - Hypo-osmolality and hyponatremia Status: Acute Assessment and Plan: Stablely low, gentle correction started with 500 mg BID salt tabs. Recheck tomorrow. Na 128 down from 131 Continue to trend (5) Dementia: Code(s): F03.90 - Unspecified dementia, unspecified severity, without behavioral disturbance, psychotic disturbance, mood disturbance, and anxiety Status: Acute Assessment and Plan: Advanced dementia noted. Patient will need SNF/ECF placement on discharge. (6) Acute hypokalemia: Code(s): E87.6 - Hypokalemia Status: Acute Assessment and Plan: Improved with treatment, will monitor (7) Type 2 diabetes mellitus with hyperglycemia: Code(s): E11.65 - Type 2 diabetes mellitus with hyperglycemia Status: Acute Assessment and Plan: ACHS glucose checks and corrective insulin use. Plan Gently correct hyoonatremia Maintain electrolytes with diet primarily, recheck with morning labs. SNF/ECF placement upon discharge DS: Summary Hospital Course Reason for hospitalization: UTI Hospital Course: Interval history: 03/22 Rounding:? Patient admitted for UTI and unwitnessed fall at assisted facility. On examination patient is confused thinks it is 1944.? Patient denies any pain difficulty breathing nausea vomiting chest pain abdominal pain shortness a breath.? She only states that she is ready for lunch.? No family present to assist with ROS and HPI. 03/23 Rounding:? Labs indicate decreasing Hemoglobin.? Patient denies any bleeding or melanotic stools.? Patient continues to be confused about why she is in the hospital.? HPI/ROS limited due to mental status 03/24:? Patient seems much improved today compared with previous notes and family reports.? I spoke with the [id number] who said they brought her in initially because she was just more confused, lethargic, and was unable to feed herself which is not her baseline.? Today she is conversational in follows commands appropriately and is able to feed herself.? When I see her she is up working with PT. she has completed her IV antibiotics for UTI so I will DC her Levaquin today.? Her sodium dipped to 128.? Sodium chloride tablets 500 mg b.i.d. ordered will follow labs tomorrow and if sodium is improved will discharge to [facility]. 03/25: Na improved on am labs. Patient is tired this morning from poor rest last night. She is back to her baseline mentation. Denies complaints. I spoke with her [id number] at bedside and reviewed the plan of care discharge today and reviewed her hospital course. Status at Discharge Cognitive/behavioral status at discharge: needs assistance with ADLs, back to baseline mentation with dementia Time Spent with Patient Time attestation: Total time spent providing and/or coordinating discharge services:42 Exam Narrative: General: well-nourished, chronically ill appearing 83-year-old female, walking in room with therapy, comfortable, NARD Neuro: awake, alert and
[2023-03-25 11:44] LABS: Glucose Point of Care 168 mg/dl (65-105)
[2023-03-25 12:00] VITALS: PULSE 51
[2023-03-25 12:43] LABS: SARS-CoV-2 RNA PCR Negative (Negative)
--- NOTE | 2023-03-25 13:28 | PC.NURSE ---
Addendum entered by Michela Singh RN 03/25/23 13:31: discharge paperwork was faxed to facility as well Original Note: called [facility] at [phone] to give report to facility. their staff took our name and telephone number and said nurse will call us back for report
--- NOTE | 2023-03-25 13:34 | PC.NURSE ---
no call back from facility as of time of this note. I called facility back to let person answering phone that pt has left and i want to give report before pt arrived to facility. the person answering phone says she gave nurse our information and if the nurse has questions she will call us.
== END 2023-03-25 13:30 | DRG 690 ==
LOC: ANHED 18:31 → ANH3MEDSUR 03-22 06:38
PROVIDERS: Nurse Practitioner; Admitting Provider Hospitalist; Emergency Provider Nurse Practitioner Family; PCP Internal Medicine; Visit Provider Nurse Practitioner Acute Care
DX: N39.0 Urinary tract infection, site not specified (principal); E87.1 Hypo-osmolality and hyponatremia; D64.9 Anemia, unspecified; E11.42 Type 2 diabetes mellitus with diabetic polyneuropathy; E11.65 Type 2 diabetes mellitus with hyperglycemia; E87.6 Hypokalemia; E03.9 Hypothyroidism, unspecified; F03.90 Unspecified dementia, unspecified severity, without behavioral disturbance, psychotic disturbance, mood disturbance, and anxiety; G47.33 Obstructive sleep apnea (adult) (pediatric); H91.90 Unspecified hearing loss, unspecified ear; I10 Essential (primary) hypertension; I48.0 Paroxysmal atrial fibrillation; R26.2 Difficulty in walking, not elsewhere classified; W19.XXXA Unspecified fall, initial encounter; Z20.822 Contact with and (suspected) exposure to COVID-19; Z85.528 Personal history of other malignant neoplasm of kidney; Z66 Do not resuscitate; Z79.82 Long term (current) use of aspirin; Z90.710 Acquired absence of both cervix and uterus; Z99.89 Dependence on other enabling machines and devices; Z98.41 Cataract extraction status, right eye; Z98.42 Cataract extraction status, left eye; Z96.653 Presence of artificial knee joint, bilateral; Z86.73 Personal history of transient ischemic attack (TIA), and cerebral infarction without residual deficits; Z79.01 Long term (current) use of anticoagulants
CPT/HCPCS: 36415; 70450; 71045; 72125; 80048; 80053; 81001; 82306; 82607; 82728; 82746; 82948; 83036; 83540; 83550; 83735; 84100; 84484; 85025; 85027; 85610; 85730; 87040; 87086; 87088; 87635; 93005; 97110; 97161; 97165; 97530; 97535; 99285; A9270; J1956; J3480; J7030; J7040

== ENCOUNTER 2023-05-06 10:59 | Outpatient (CLI) | payer MEDICARE, SELFPAY ==
[2023-05-06 19:23] LABS: Alanine Aminotransferase 13 U/L (6-35); Albumin Level 3.4 g/dL (3.5-5.1); Alkaline Phosphatase 89 U/L (38-126); Anion Gap 6 mmol/L (8-16); Aspartate Amino Transferase 23 U/L (14-36); Bilirubin,Total 0.8 mg/dL (0.2-1.3); Blood Urea Nitrogen 15 mg/dL (7-17); Calcium 8.2 mg/dL (8.4-10.2); Carbon Dioxide 35 mmol/L (22-30); Chloride 92 mmol/L (98-107); Estimated Glomerular Filt Rate > 60; Glucose 113 mg/dL (65-110); Potassium 3.2 mmol/L (3.4-5.0); Sodium 133 mmol/L (137-145)
[2023-05-06 19:36] LABS: Basophils Percent Auto 0.2 % (0.2-1.2); Eosinophils Absolute Auto 0.1 K/mm3 (0-0.3); Eosinophils Percent Auto 1.9 % (0-4.4); Hematocrit 28.5 % (37.0-47.0); Hemoglobin 8.8 g/dL (12.0-15.0); Immature Granulocyte Absolute 0.01 K/mm3 (0.00-0.031); Immature Granulocyte Percent A 0.2 % (0-0.5); Lymphocytes Absolute Auto 0.56 K/mm3 (0.9-3.2); Lymphocytes Percent Auto 13.5 % (18.3-44.2); Mean Corpuscular HGB Conc 30.9 g/dl (32-36); Mean Corpuscular Hemoglobin 32.5 pg (26-34); Mean Corpuscular Volume 105.2 fl (80-100); Monocytes Absolute Auto 0.3 K/mm3 (0.1-0.6); Monocytes Percent Auto 6.3 % (2.6-8.5); Neutrophils Absolute Auto 3.2 K/mm3 (1.3-6.7); Neutrophils Percent Auto 77.9 % (45.5-73.1); Platelet Count Result 263 k/mm3 (150-375); Red Blood Count 2.71 M/mm3 (4.2-5.4); Red Cell Distribution Width 17.1 % (11.5-14.5); White Blood Count 4.1 K/mm3 (4.5-10.0)
[2023-05-06 19:54] LABS: Anisocytosis 1+ (NORMAL); Platelet Estimate Adequate (Adequate)
[2023-05-06 19:55] LABS: Macrocytosis 1+ (NORMAL); Ovalocytes 1+ (NORMAL); Schistocytes None Seen (NORMAL)
[2023-05-06 19:56] LABS: Free T4 Free Thyroxine 1.38 ng/mL (0.78-2.19)
[2023-05-09 08:11] LABS: Triiodothyronine T3 Free 2.2 pg/mL (2.3-4.2)
== END 2023-05-06 11:00 | disposition home or self-care (01) ==
PROVIDERS: PCP Internal Medicine; Visit Provider Nurse Practitioner
DX: D64.9 Anemia, unspecified (principal); E87.1 Hypo-osmolality and hyponatremia
CPT/HCPCS: 36415; 80053; 84439; 84443; 84481; 85025

== ENCOUNTER 2023-07-26 03:18 | Inpatient (IN) | payer MEDICARE, SELFPAY ==
[2023-07-26] VITALS (15 sets, daily range): BP systolic 129–163; BP diastolic 48–90; PULSE 55–83; RESP 18–26; TEMP 36.5–37.2; O2SAT 92–100; BMI 25.4
--- NOTE | ~2023-07-26 | CT_ITS ---
Clinical Indication: Shortness of breath CT Scan of the Chest with Contrast: Technique: Contiguous sections were acquired throughout the chest after intravenous administration of 100 cc of Omnipaque 350. Dose reduction technique was used on this scan by utilizing automated expos ure control and iterative reconstruction technique. The dose-length product (DLP) was 568.90 mGy-cm. Findings: There is no evidence of any significant mediastinal, hilar or axillary lymphadenopathy. There is no f illing defect in the pulmonary arterial tree to suggest pulmonary embolus. There is no evidence of ao rtic dissection or aneurysm. There is atherosclerotic calcification of the aorta and coronary arterie s. No pericardial effusion. There are moderate bilateral pleural effusions with partial bilateral lower lobe atelectasis. There i s extensive interstitial thickening and mild patchy groundglass opacity in the aerated lungs, consist ent with pulmonary edema. Images through the upper abdomen reveal multiple gallstones. There is a possible enhancing right sarah l mass measuring 2.6 cm in diameter. Impression: No evidence of pulmonary embolus, aortic dissection, or aortic aneurysm. Moderate bilateral pleural effusions with partial bilateral lower lobe atelectasis. Mixed alveolar and interstitial pulmonary edema in the aerated lungs. Suspected 2.6 cm enhancing right renal mass. Renal cell carcinoma is a consideration. Follow-up dedic ated renal imaging recommended to further assess. Cholelithiasis. Reviewed, dictated and finalized at [facility]. LEVELER Impression: No evidence of pulmonary embolus, aortic dissection, or aortic aneurysm. Moderate bilateral pleural effusions with partial bilateral lower lobe atelecta sis. Mixed alveolar and interstitial pulmonary edema in the aerated lungs. Suspected 2.6 cm enhancing right renal mass. Renal cell carcinoma is a consider ation. Follow-up dedicated renal imaging recommended to further assess. Cholelithiasis.
--- NOTE | ~2023-07-26 | XR_ITS ---
EXAMINATION: XR chest 1V portable DATE: 07/28/2023 13:08 INDICATION: Pulmonary edema. TECHNIQUE: A single frontal view of the chest was obtained. COMPARISON: Chest single view 07/26/2023, chest CT 07/26/2023 FINDINGS: The patient is rotated to her left. There are airspace opacities in all right lung zones an d in left mid and lower lung zones. There are small pleural effusions. No pneumothorax. Cardiomegaly is noted. IMPRESSION: 1. Diffuse lung disease with worsening on the right, consistent with pulmonary edema versus pneumonia . 2. Stable small pleural effusions. 3. Cardiomegaly. Reviewed, dictated and finalized at location A. [facility]AN IMPRESSION: 1. Diffuse lung disease with worsening on the right, consistent with pulmonary edema versus pneumonia. 2. Stable small pleural effusions. 3. Cardiomegaly.
--- NOTE | ~2023-07-26 | XR_ITS ---
Portable chest x-ray Comparison: 03/21/2023 Clinical History: Dyspnea Findings: There are small bilateral pleural effusions. There is hazy perihilar and bibasilar airspac e disease, with mild involvement in the right upper lobe. Cardiomediastinal silhouette is stable. Az juliette and soft tissues are unremarkable. Impression: Mild to moderate pulmonary edema pattern with small bilateral pleural effusions. Probable partial lef t lower lobe atelectasis. Reviewed, dictated and finalized at location M. D CARE RN Impression: Mild to moderate pulmonary edema pattern with small bilateral pleural effusions . Probable partial left lower lobe atelectasis.
--- NOTE | 2023-07-26 03:28 | ECG_ITS ---
Measurements Intervals [place] Rate: 60 P: ID: 0 QRS: -61 QRSD: 174 T: 113 QT: 473 QTc: 474 Interpretive Statements ATRIAL FIBRILLATION LEFT AXIS DEVIATION LEFT BUNDLE BRANCH BLOCK BASELINE ARTIFACT- I, II, III, AVR, AVL, AVF, V1-V3 ABNORMAL ECG COMPARED TO ECG 03/21/2023 17:48:35 NO SIGNIFICANT CHANGES Electronically Signed On 07-26-2023 8:18:18 [employer]AK[employer] by Cade Velazquez D.O.
--- NOTE | 2023-07-26 03:41 | ED.GENADULT ---
HPI - General Adult General Chief complaint: Shortness of Breath/Dyspnea Stated complaint: low o2 sat Time Seen by Provider: 07/26/23 03:27 History of Present Illness HPI narrative: patient is 83-year-old female who presents emerged department with chief of shortness of breath and hypoxia. Patient is resident of a local nursing facility in [place] she was little less active today and did notice that her oxygen levels were reading in the 80s. The patient currently reports having no real shortness of breath denies chest pain the patient was started on oxygen at the nursing facility and transported to the emergency department where her oxygen saturation rates have come up with the supplemental oxygen. Patient denies fever denies vomiting or diarrhea. Related Data Home Medications Medication Instructions Recorded Confirmed telmisartan 40 mg tablet 80 mg PO DAILY 10/25/19 05/11/23 ferrous sulfate 325 mg (65 mg 325 mg PO BID 06/13/20 05/11/23 iron) tablet (iron) apixaban 5 mg tablet (Eliquis) 5 mg PO BID 07/29/20 05/11/23 cholecalciferol (vitamin D3) 25 25 mcg PO DAILY 12/16/20 05/11/23 mcg (1,000 unit) tablet (Vitamin D3) brimonidine 0.2 % eye drops 1 drp RIGHT EYE BID 09/14/22 05/11/23 dorzolamide 22.3 mg-timolol 6.8 1 drp RIGHT EYE BID 09/14/22 05/11/23 mg/mL eye drops ketorolac 0.5 % eye drops 1 drp RIGHT EYE Q8H 09/14/22 05/11/23 ofloxacin 0.3 % eye drops 1 drp RIGHT EYE QID 09/14/22 05/11/23 diclofenac sodium 1 % topical gel 2 g topical QID 03/21/23 05/11/23 magnesium hydroxide 400 mg/5 mL 400 mg PO HS PRN Constipation 03/21/23 05/11/23 oral suspension (Milk of Magnesia) bisacodyl 10 mg rectal suppository 10 mg RECTAL DAILY PRN Constipation 03/22/23 05/11/23 magnesium citrate (Citroma oral 296 ml PO QAM PRN Constipation 03/22/23 05/11/23 solution) hydrochlorothiazide 25 mg tablet 25 mg PO DAILY 05/07/23 05/11/23 lutein 25 mg-zeaxanthin 5 mg cap PO 05/07/23 05/11/23 capsule (Ocuvite Lutein) memantine 10 mg tablet 20 mg PO QPM 05/07/23 05/11/23 tolnaftate 1 % topical powder 1 applic topical DAILY 05/11/23 05/11/23 Allergies Allergy/AdvReac Type Severity Reaction Status Date / Time simvastatin Allergy Unknown Unknown Verified 07/26/23 03:33 MEPERIDINE HCL AdvReac Severe MADE Uncoded 05/11/23 09:33 PATIENT VERY MEAN DURING LABOR Review of Systems Review of Systems: A 10 system review of systems was completed on the patient and is negative except for what is stated in the HPI. Nursing and ancillary documentation was reviewed. [facility] Past Medical History Medical History Afib Body mass index (BMI) greater than 40 (09/19/15) Diabetic peripheral neuropathy Essential (primary) hypertension Helicobacter positive gastritis History of CVA (cerebrovascular accident) Microcytic anemia Multi-infarct dementia Obstructive sleep apnea Renal cell carcinoma Renal mass Stroke Type 2 diabetes mellitus with hyperglycemia Surgical History Surgical History H/O inguinal hernia repair H/O: hysterectomy History of arthroplasty of both knees History of cataract surgery both eyes, did not work in right eye Family History Family History Sibling Family history of thyroid disease Cerebrovascular accident Social History Social History Social History: She typically lives with her but is currently at [facility] for rehab. They have one son. 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 She is a lifelong nonsmoker. Code status DNR Smoking status: Never smoker Second hand tobacco smoke exposure: No Alcohol intake: never Substance use: never Lack of Transportation: No Lack of Food: Never True Cu
[2023-07-26 04:04] LABS: Basophils Percent Auto 0.2 % (0.2-1.2); Eosinophils Absolute Auto 0.1 K/mm3 (0-0.3); Eosinophils Percent Auto 1.1 % (0-4.4); Hematocrit 25.6 % (37.0-47.0); Hemoglobin 8.6 g/dL (12.0-15.0); Immature Granulocyte Absolute 0.01 K/mm3 (0.00-0.031); Immature Granulocyte Percent A 0.2 % (0-0.5); Lymphocytes Absolute Auto 0.51 K/mm3 (0.9-3.2); Lymphocytes Percent Auto 8.1 % (18.3-44.2); Mean Corpuscular HGB Conc 33.6 g/dl (32-36); Mean Corpuscular Hemoglobin 31.2 pg (26-34); Mean Corpuscular Volume 92.8 fl (80-100); Mean Platelet Volume 8.3 fl (7.4-10.4); Monocytes Absolute Auto 0.4 K/mm3 (0.1-0.6); Monocytes Percent Auto 6.5 % (2.6-8.5); Neutrophils Absolute Auto 5.3 K/mm3 (1.3-6.7); Neutrophils Percent Auto 83.9 % (45.5-73.1); Platelet Count Result 165 k/mm3 (150-375); Red Blood Count 2.76 M/mm3 (4.2-5.4); Red Cell Distribution Width 15.1 % (11.5-14.5); White Blood Count 6.3 K/mm3 (4.5-10.0)
[2023-07-26 04:14] LABS: INR 1.8; Prothrombin Time 22.4 Seconds (11.1-14.7)
[2023-07-26 04:15] LABS: Partial Thromboplastin Time 55.1 SECONDS (22.3-36.8)
[2023-07-26 04:18] LABS: Lactic Acid Reflex 0.6 mmol/L (0.7-2.0)
[2023-07-26 04:20] LABS: Alanine Aminotransferase 11 U/L (6-35); Albumin Level 3.4 g/dL (3.5-5.1); Alkaline Phosphatase 131 U/L (38-126); Anion Gap 8 mmol/L (8-16); Aspartate Amino Transferase 21 U/L (14-36); Blood Urea Nitrogen 20 mg/dL (7-17); Calcium 8.3 mg/dL (8.4-10.2); Carbon Dioxide 29 mmol/L (22-30); Chloride 83 mmol/L (98-107); Estimated CRCL calculation 77 ml/min; Estimated Glomerular Filt Rate > 60; Glucose 112 mg/dL (65-110); Magnesium 1.6 mg/dL (1.6-2.3); Potassium 3.6 mmol/L (3.4-5.0); Sodium 120 mmol/L (137-145)
[2023-07-26 04:26] LABS: NT Pro B Type Natriuretic Pept 3660 pg/mL (19.9-100); Troponin I < 0.012 ng/mL (0.000-0.034)
[2023-07-26 04:39] LABS: Appearance Urine Turbid (Clear); Bacteria Urine 4+ /hpf; Bilirubin Urine Negative (Negative); Blood Urine 3+ (Negative); Color Urine Yellow (Yellow); Glucose Urine UA Negative (Negative); Ketones Urine Negative (Negative); Leukocyte Esterase Ur 3+ LEU/UL (Negative); Nitrate Urine Positive (Negative); Protein Urine 1+ mg/dL (Negative); Specific Grav Ur 1.017 (1.001-1.035); Squamous Epithelial Cell Urine Occasional /hpf (Few); WBC Urine >100 /hpf
[2023-07-26 04:40] LABS: Influenza A QL RT-PCR Negative (Negative); Influenza B QL RT-PCR Negative (Negative); RSV RNA, RT-PCR Negative (Negative); SARS-CoV-2 RNA PCR Negative (Negative)
[2023-07-26 04:43] LABS: Procalcitonin 0.1 ng/mL
[2023-07-26 05:00] LABS: Base Excess ABG 4.1 mEq/l (+/-2.0); Device NASAL CANNULA; Fractional Inspired Oxygen 36 %; HCO3 ABG 29.3 mEq/l (22.0-26.0); Modified Allen's Test Pass; Oxygen Content ABG 11.7 %vol (16.0-22.0); Oxygen Saturation ABG 93.5 % (95.0-100.0); PCO2 ABG 47.5 mmHg (35.0-45.0); PO2 ABG 67.6 mmHg (80.0-100.0); PO2 FiO2 Ratio Arterial Blood 1.88 %; Site Drawn RIGHT RADIAL; Total Hemoglobin 9.3 g/dL (12.0-18.0); pH ABG 7.408 (7.350-7.450)
[2023-07-26 05:07] LABS: Add Urine Microscopic? YES
[2023-07-26] MEDS: FUROSEMIDE INJ 40 MG/4 ML VIAL IV PUSH ×3 (05:50→20:02)
--- NOTE | 2023-07-26 06:33 | PC.NURSE ---
This RN called Anh from [facility] to update on pt status. All questions answered.
[2023-07-26 06:52] LABS: Troponin I < 0.012 ng/mL (0.000-0.034)
--- NOTE | 2023-07-26 06:55 | ADMGEN ---
This patient, Rachell Power, was admitted to Medical Room 244-. Patient/family oriented to hospital policies and general routines including ID bracelet, bed and alarms, visiting hours, pain management, procedures, bathroom and other care routines, personal items, smoking policy, room service/diet, and visiting hours. Information on how to activate the Rapid Response Team has been discussed. Patient/Family are encouraged to report perceived risks to care and to ask questions if they do not understand what they are told or what they should do.
--- NOTE | 2023-07-26 07:28 | PM.IMHP ---
H&P: HPI History of Present Illness Date/Time: 07/26/23 07:28 Chief Complaint: Short of breath Narrative: patient is 83-year-old female with history of AFib, on Eliquis, ANGÉLICA, renal cell carcinoma, chronic anemia, chronic hyponatremia, CVA, diabetes, hypertension, dementia brought to ED from correction because of shortness of breath and hypoxia.? Patient was found have general weakness, and less active. her oxygen levels were reading in the 80s. patient was started on oxygen at the nursing facility and transported to the emergency department. Patient denies chest pain, no obvious shortness breath. Patient also denies fever, abdomen pain, nausea vomiting diarrhea. In the ED, patient was found have, hyponatremia sodium of 120 BNP was moderately elevated at 3660, ABG shows hypoxemia hypercapnic respiratory failure, hemoglobin 8.6, close to baseline, urinalysis showed greater than 100 white blood cells. ? CTA chest showed evidence of pulmonary edema. ?patient was given Lasix and given Rocephin for UTI. Patient was transferred to medical floor for further evaluation and management Review of Systems Review of Systems: Patient has dementia, not oriented x3 and I a.m. unable to review system completely except above PMFSH Past Medical History Medical History Afib Body mass index (BMI) greater than 40 (09/19/15) Diabetic peripheral neuropathy Essential (primary) hypertension Helicobacter positive gastritis History of CVA (cerebrovascular accident) Microcytic anemia Multi-infarct dementia Obstructive sleep apnea Renal cell carcinoma Renal mass Stroke Type 2 diabetes mellitus with hyperglycemia Surgical History Surgical History H/O inguinal hernia repair H/O: hysterectomy History of arthroplasty of both knees History of cataract surgery both eyes, did not work in right eye Family History Family History Sibling Family history of thyroid disease Cerebrovascular accident Social History Social History Social History: She typically lives with her but is currently at [facility] for rehab. They have one son. 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 She is a lifelong nonsmoker. Code status DNR Smoking status: Never smoker Second hand tobacco smoke exposure: No Alcohol intake: never Substance use: never Lack of Transportation: No Lack of Food: Never True Current Housing: I Have Housing Concerned About Future Housing: No Difficulty Paying Gas/Electric Bills: No Difficulty Paying for Meds: No Currently Unemployed: No Education: High School Diploma/GED Difficulty w/ Childcare or Family Care: No Living arrangements: with family Gender identity (if verbalized by the patient): Male Spiritual care concerns: No Meds Home Medications and Allergies Home Medications Medication Instructions Recorded Confirmed Type telmisartan 40 mg tablet 80 mg PO DAILY 10/25/19 07/26/23 History ferrous sulfate 325 mg (65 mg 325 mg PO BID 06/13/20 07/26/23 History iron) tablet (iron) apixaban 5 mg tablet (Eliquis) 5 mg PO BID 07/29/20 07/26/23 History cholecalciferol (vitamin D3) 25 25 mcg PO DAILY 12/16/20 07/26/23 History mcg (1,000 unit) tablet (Vitamin D3) brimonidine 0.2 % eye drops 1 drp RIGHT EYE BID 09/14/22 07/26/23 History dorzolamide 22.3 mg-timolol 6.8 1 drp RIGHT EYE BID 09/14/22 07/26/23 History mg/mL eye drops amlodipine 5 mg tablet (Norvasc) 10 mg PO QAM #30 tabs 03/08/23 07/26/23 Rx atorvastatin 40 mg tablet 40 mg PO DAILY #30 tabs 03/08/23 07/26/23 Rx diclofenac sodium 1 % topical gel 2 g topical QID PRN arthritis pain 03/21/23 07/26/23 History metoprolol succinate 50 mg 50 mg PO DAILY #30 tabs 09/
--- NOTE | 2023-07-26 08:05 | ECHO_ITS ---
Patient Info Name: Rachell Power Age: 83 years : 1940 Gender: Female Ht: 64 in Wt: 148 lbs BSA: 1.75 m2 HR: 68 bpm BP: 146 / 68 mmHg Heart Rhythm: Atrial Fibrillation Technical Quality: Fair Exam Date: 07/26/2023 11:29 AM Exam Location: Echo Lab Exam Room: 244 Patient Status: Inpatient Admit Date: 07/26/2023 Staff Ordering Physician: Stephanie Marques MD Freight Brake Operator: Janneth Tang RDCS Attending Provider: Elizabeth Zendejas DO Exam Type: CA echo doppler color flow Study Info Indications - DIZZINESS Complete two-dimensional, color flow and Doppler transthoracic echocardiogram is performed. Summary 1. Complete two-dimensional, color flow and Doppler transthoracic echocardiogram is performed. 2. Left ventricular chamber dimension is normal. 3. Left ventricular systolic function is normal, estimated at 65-70%. 4. There is mildly increased left ventricular wall thickness. 5. Left ventricular septal wall motion is abnormal with septal motion related to bundle branch block. 6. The left ventricular diastolic function is indeterminate. 7. There is borderline mild aortic valve stenosis with a peak velocity of 172 cm/s, mean gradient of 7 mmHg, and aortic valve area of 2.0 cm2. 8. There is mild aortic valve calcification. 9. There is trace aortic valve regurgitation. 10. There is mild mitral valve regurgitation. 11. There is mild to moderate tricuspid valve regurgitation. 12. Moderate pulmonary hypertension, estimated pulmonary arterial systolic pressure is 56 mmHg. 13. Large left pleural effusion. Left Ventricle Left ventricular chamber dimension is normal. Left ventricular systolic function is normal, estimated at 65-70%. There is mildly increased left ventricular wall thickness. Left ventricular septal wall motion is abnormal with septal motion related to bundle branch block. The left ventricular diastolic function is indeterminate. Right Ventricle Right ventricular chamber dimension is normal. Right ventricular systolic function is normal. Left Atria Left atrial chamber dimension is moderately enlarged. Right Atria Right atrial chamber dimension is severely enlarged. Atrial Septum Possible interatrial shunt with color flow Doppler. Consider bubble study if clinically indicated. Aortic Valve The aortic valve is probable trileaflet. There is borderline mild aortic valve stenosis with a peak velocity of 172 cm/s, mean gradient of 7 mmHg, and aortic valve area of 2.0 cm2. There is trace aortic valve regurgitation. There is mild aortic valve calcification. Pulmonic Valve The pulmonic valve is normal. There is trace pulmonic regurgitation. Mitral Valve The mitral valve has thickened leaflets. There is mild mitral valve regurgitation. The mitral valve annulus is moderately calcified. Tricuspid Valve The tricuspid valve leaflets are normal. There is mild to moderate tricuspid valve regurgitation. Moderate pulmonary hypertension, estimated pulmonary arterial systolic pressure is 56 mmHg. Pericardium/Pleural The pericardium appears normal. There is trivial pericardial effusion. Large left pleural effusion. Inferior Vena Cava Normal inferior vena cava with >50% collapse upon inspiration consistent with normal right atrial pressure, 5 mmHg. Aorta The aortic root size at the sinus of Valsalva is normal. The prox ascending aorta size is normal. Left Ventricular Outflow Tract Name Value Normal
[2023-07-26] MEDS: TELMISARTAN 40 MG TABLET 80 MG PO (09:53)
[2023-07-26] MEDS: SODIUM CHLORIDE 500 MG TABLET 2000 MG PO ×2 (09:53→17:16)
[2023-07-26] MEDS: APIXABAN 5 MG TABLET PO ×2 (09:54→17:16)
[2023-07-26] MEDS: ATORVASTATIN 40 MG TABLET PO (09:54)
[2023-07-26] MEDS: METOPROLOL SUCCINATE EXT REL 50 MG TABCR PO (09:54)
[2023-07-26] MEDS: FERROUS SULFATE 325 MG TABLET DR PO ×2 (09:54→17:16)
[2023-07-26] MEDS: MEMANTINE 10 MG TABLET PO ×2 (09:54→17:16)
[2023-07-26] MEDS: DORZOLAMIDE/TIMOLOL OPHTH SOL 10 ML BOTTLE 1 DROP RIGHT EYE ×2 (09:54→20:00)
[2023-07-26] MEDS: CHOLECALCIFEROL 1,000 UNITS TABLET 1000 UNITS PO (09:54)
[2023-07-26] MEDS: BRIMONIDINE TARTRATE 0.2% OP SOLN 5 ML BTL 1 DROP RIGHT EYE ×2 (09:55→20:00)
[2023-07-26 10:25] LABS: Sodium 122 mmol/L (137-145)
[2023-07-26 14:48] LABS: Sodium 122 mmol/L (137-145)
[2023-07-26 18:25] LABS: Sodium 123 mmol/L (137-145)
[2023-07-26 23:10] LABS: Sodium 123 mmol/L (137-145)
[2023-07-27] VITALS (14 sets, daily range): BP systolic 136–146; BP diastolic 55–64; PULSE 50–78; RESP 17–18; TEMP 36.7–36.8; O2SAT 93–98
[2023-07-27] MEDS: METOPROLOL SUCCINATE EXT REL 50 MG TABCR PO (09:18)
[2023-07-27] MEDS: SODIUM CHLORIDE 500 MG TABLET 2000 MG PO ×2 (09:19→17:11)
[2023-07-27] MEDS: TELMISARTAN 40 MG TABLET 80 MG PO (09:19)
[2023-07-27] MEDS: APIXABAN 5 MG TABLET PO ×2 (09:19→17:11)
[2023-07-27] MEDS: MEMANTINE 10 MG TABLET PO ×2 (09:20→17:11)
[2023-07-27] MEDS: CHOLECALCIFEROL 1,000 UNITS TABLET 1000 UNITS PO (09:20)
[2023-07-27] MEDS: FERROUS SULFATE 325 MG TABLET DR PO ×2 (09:20→17:11)
[2023-07-27] MEDS: ATORVASTATIN 40 MG TABLET PO (09:20)
[2023-07-27] MEDS: FUROSEMIDE INJ 40 MG/4 ML VIAL IV PUSH ×2 (09:21→21:47)
[2023-07-27] MEDS: DORZOLAMIDE/TIMOLOL OPHTH SOL 10 ML BOTTLE 1 DROP RIGHT EYE ×2 (09:24→21:46)
[2023-07-27] MEDS: BRIMONIDINE TARTRATE 0.2% OP SOLN 5 ML BTL 1 DROP RIGHT EYE ×2 (09:24→21:46)
--- NOTE | 2023-07-27 12:47 | PM.IMPN ---
Progress Note: A&P Assessment and Plan (1) Acute hypoxemic respiratory failure: Code(s): J96.01 - Acute respiratory failure with hypoxia Status: Acute (2) Acute UTI: Code(s): N39.0 - Urinary tract infection, site not specified Status: Acute (3) Hyponatremia: Code(s): E87.1 - Hypo-osmolality and hyponatremia Status: Acute (4) Acute heart failure: Code(s): I50.9 - Heart failure, unspecified Status: Acute (5) CHF (congestive heart failure): Code(s): I50.9 - Heart failure, unspecified Status: Acute (6) Obstructive sleep apnea: Code(s): G47.33 - Obstructive sleep apnea (adult) (pediatric) Status: Acute (7) Type 2 diabetes mellitus with hyperglycemia: Code(s): E11.65 - Type 2 diabetes mellitus with hyperglycemia Status: Acute (8) Anemia: Qualifiers: Anemia type: unspecified type Qualified Code(s): D64.9 - Anemia, unspecified Code(s): D64.9 - Anemia, unspecified Status: Acute (9) Essential hypertension: Code(s): I10 - Essential (primary) hypertension Status: Acute (10) Microcytic anemia: Code(s): D50.9 - Iron deficiency anemia, unspecified Status: Acute (11) Type 2 diabetes mellitus without complication: Qualifiers: Diabetes mellitus fpc insulin use: without fpc use Qualified Code(s): E11.9 - Type 2 diabetes mellitus without complications Code(s): E11.9 - Type 2 diabetes mellitus without complications Status: Acute (12) Short-term memory loss: Code(s): R41.3 - Other amnesia Status: Acute Plan Acute respiratory failure with hypoxemia and hypercapnia Possible due to fluid overload, acute a chronic heart failure superimposed the ANGÉLICA Continue O2 supplement therapy, pt appears more stable today with breathing Acute on chronic heart failure Patient has hypertension, possible has diastolic dysfunction, CTA shows no PE but pulmonary congestion. Patient was also found have elevated BNP in the ED Continue Lasix 40 mg b.i.d. IV push sp echo showing ef 60% Acute UTI UA shows pyuria Continue ceftriaxone 1 g IV daily Follow-up urinalysis Hyponatremia Sodium 120, lower than baseline, patient has chronic hyponatremia Likely secondary to hydrochlorothiazide Provide sodium chloride tablets supplement sodium is 123 will consult nephrology Essential hypertension Discontinue hydrochlorothiazide because of hyponatremia Continue telmisartan 80 mg daily Hold amlodipine Now patient is on Lasix 40 mg IV b.i.d. Monitor blood pressure closely Chronic AFib Rate control Continue metoprolol succinate 50 mg daily p.o., Eliquis 5 mg b.i.d. p.o. Chronic anemia Close to baseline No obvious bleeding Continue ferrous sulfate p.o. to 35 mg b.i.d. Dementia Continue movement and 10 mg b.i.d. p.o. Subjective Date/time seen: 07/27/23 12:47 Interval history: 83-year-old female with history of AFib, on Eliquis, ANGÉLICA, renal cell carcinoma, chronic anemia, chronic hyponatremia, CVA, diabetes, hypertension, dementia [facility] from [facility] because of shortness of breath and hypoxia.? Patient was found have general weakness, and less active.?? Pt admitted for UTI and acute on chronic diastolic CHF UC is pending echo is as below Left Ventricle ? Left ventricular chamber dimension is normal. ? Left ventricular systolic function is normal, estimated at 65-70%. ? There is mildly increased left ventricular wall thickness. ? Left ventricular septal wall motion is abnormal with septal motion related to bundle branch block. ? The left ventricular diastolic function is indeterminate Review of Systems Review of Systems: Ongoing SOB and weakness Exam Narrative: GENERAL: in no acute distress. Well-nourished. - EYES: EOMI. Anicteric. - HENT: Moist mucous membranes. - LUNGS: Coarse breath sounds bilater
--- NOTE | 2023-07-27 13:35 | PC.NURSE ---
On 07/27/23, the student, [Ana Perez], provided care and completed [facility] documentation on this patient. I have reviewed the student's documentation and agree with the findings.
[2023-07-28] VITALS (10 sets, daily range): BP systolic 126–146; BP diastolic 50–56; PULSE 49–64; RESP 16–18; TEMP 36.9–37; O2SAT 96–99
[2023-07-28 05:43] LABS: Albumin Level 2.9 g/dL (3.5-5.1); Blood Urea Nitrogen 12 mg/dL (7-17); Calcium 7.6 mg/dL (8.4-10.2); Carbon Dioxide > 40 mmol/L (22-30); Chloride 84 mmol/L (98-107); Estimated CRCL calculation 77 ml/min; Estimated Glomerular Filt Rate > 60; Glucose 96 mg/dL (65-110); Phosphorus 3.3 mg/dL (2.5-4.5); Sodium 125 mmol/L (137-145)
[2023-07-28] MEDS: ATORVASTATIN 40 MG TABLET PO (09:09)
[2023-07-28] MEDS: TELMISARTAN 40 MG TABLET 80 MG PO (09:09)
[2023-07-28] MEDS: APIXABAN 5 MG TABLET PO ×2 (09:09→17:14)
[2023-07-28] MEDS: MEMANTINE 10 MG TABLET PO ×2 (09:09→17:15)
[2023-07-28] MEDS: FUROSEMIDE INJ 40 MG/4 ML VIAL IV PUSH ×2 (09:09→21:12)
[2023-07-28] MEDS: FERROUS SULFATE 325 MG TABLET DR PO ×2 (09:09→17:14)
[2023-07-28] MEDS: SODIUM CHLORIDE 500 MG TABLET 2000 MG PO ×2 (09:09→17:14)
[2023-07-28] MEDS: CHOLECALCIFEROL 1,000 UNITS TABLET 1000 UNITS PO (09:09)
[2023-07-28] MEDS: DORZOLAMIDE/TIMOLOL OPHTH SOL 10 ML BOTTLE 1 DROP RIGHT EYE ×2 (09:16→21:13)
[2023-07-28] MEDS: BRIMONIDINE TARTRATE 0.2% OP SOLN 5 ML BTL 1 DROP RIGHT EYE ×2 (09:16→21:13)
--- NOTE | 2023-07-28 12:37 | PM.IMPN ---
Progress Note: A&P Assessment and Plan (1) Acute hypoxemic respiratory failure: Code(s): J96.01 - Acute respiratory failure with hypoxia Status: Acute (2) Acute UTI: Code(s): N39.0 - Urinary tract infection, site not specified Status: Acute (3) Hyponatremia: Code(s): E87.1 - Hypo-osmolality and hyponatremia Status: Acute (4) Acute heart failure: Code(s): I50.9 - Heart failure, unspecified Status: Acute (5) CHF (congestive heart failure): Code(s): I50.9 - Heart failure, unspecified Status: Acute (6) Obstructive sleep apnea: Code(s): G47.33 - Obstructive sleep apnea (adult) (pediatric) Status: Acute (7) Type 2 diabetes mellitus with hyperglycemia: Code(s): E11.65 - Type 2 diabetes mellitus with hyperglycemia Status: Acute (8) Anemia: Qualifiers: Anemia type: unspecified type Qualified Code(s): D64.9 - Anemia, unspecified Code(s): D64.9 - Anemia, unspecified Status: Acute (9) Essential hypertension: Code(s): I10 - Essential (primary) hypertension Status: Acute (10) Microcytic anemia: Code(s): D50.9 - Iron deficiency anemia, unspecified Status: Acute (11) Type 2 diabetes mellitus without complication: Qualifiers: Diabetes mellitus alf insulin use: without alf use Qualified Code(s): E11.9 - Type 2 diabetes mellitus without complications Code(s): E11.9 - Type 2 diabetes mellitus without complications Status: Acute (12) Short-term memory loss: Code(s): R41.3 - Other amnesia Status: Acute Plan Acute respiratory failure with hypoxemia and hypercapnia Possible due to fluid overload, acute a chronic heart failure superimposed the ANGÉLICA Continue O2 supplement therapy, pt appears more stable today with breathing CXR shows - Mild to moderate pulmonary edema pattern with small bilateral pleural effusions. Pt is on iv lasix BID Acute on chronic heart failure Patient has hypertension, possible has diastolic dysfunction, CTA shows no PE but pulmonary congestion. Patient was also found have elevated BNP in the ED Continue Lasix 40 mg b.i.d. IV push sp echo showing ef 60% add potassium supplementation Sinus bradycardia Hold beta anisa Continue telemetry monitoring Cardiology consulted Acute UTI UA shows pyuria Continue ceftriaxone 1 g IV daily UC shows ECOLI Hyponatremia Sodium 120, lower than baseline, patient has chronic hyponatremia Likely secondary to hydrochlorothiazide Provide sodium chloride tablets supplement sodium is 125 will consult nephrology Essential hypertension Discontinue hydrochlorothiazide because of hyponatremia Continue telmisartan 80 mg daily Hold amlodipine Now patient is on Lasix 40 mg IV b.i.d. Monitor blood pressure closely Chronic AFib Rate control Continue metoprolol succinate 50 mg daily p.o., Eliquis 5 mg b.i.d. p.o. Chronic anemia Close to baseline No obvious bleeding Continue ferrous sulfate p.o. to 35 mg b.i.d. Dementia Continue movement and 10 mg b.i.d. p.o. Subjective Date/time seen: 07/28/23 12:37 Interval history: 83-year-old female with history of AFib, on Eliquis, ANGÉLICA, renal cell carcinoma, chronic anemia, chronic hyponatremia, CVA, diabetes, hypertension, dementia brought to ED from custodial because of shortness of breath and hypoxia.? Patient was found have general weakness, and less active.?? Pt admitted for UTI and acute on chronic diastolic CHF UC is shows ecoli Echo result is as below Left Ventricle ? Left ventricular chamber dimension is normal. ? Left ventricular systolic function is normal, estimated at 65-70%. ? There is mildly increased left ventricular wall thickness. ? Left ventricular septal wall motion is abnormal with septal motion related to bundle branch block. ? The left ventricular diastolic function is indet
--- NOTE | 2023-07-28 12:50 | PM.CNCAR ---
Assessment and Plan Assessment and plan (1) CHF (congestive heart failure): Qualifiers: Heart failure type: diastolic Heart failure chronicity: acute Qualified Code(s): I50.31 - Acute diastolic (congestive) heart failure Code(s): I50.9 - Heart failure, unspecified Status: Acute Assessment and Plan: Patient presents with acute heart failure with preserved ejection fraction acute hypoxic respiratory failure requiring O2 supplementation. ProBNP mildly elevated 3660, chest x-ray and CTA with pleural effusions and pulmonary vascular congestion. Patient clinically and symptomatically much improved with IV diuresis with resolution of edema, coughing and complaints of shortness of breath. She remains on supplemental O2. Echocardiogram reviewed. EF preserved 65-70% mild LVH paradoxical septal wall motion abnormality borderline mild aortic stenosis, mild MR, [id number] TR, moderate pulmonary hypertension. Continue accurate input and output, daily weight. CHF counseling. Continue IV Lasix today, anticipate transition to oral regimen 40 mg Lasix starting tomorrow morning. Management strategy BP control, evaluation for sleep apnea, check TSH. Replete potassium to IV 4.0. Replete magnesium to around 2.0. Magnesium low 1.4. Monitor volume status on sodium chloride tablets recommended per Renal due to hyponatremia. Minimize NSAID use. (2) Bradycardia: Code(s): R00.1 - Bradycardia, unspecified Status: Acute Assessment and Plan: Asymptomatic transient bradycardia in persistent AFib. This is not an acute issue but persistent bradycardia may increase risk for falls and potential catastrophic bleeding complications on systemic anticoagulation. Home dose of Toprol XL 50 mg held this morning. Plan to resume Toprol XL at 25 mg daily tomorrow morning. Continue telemetry. Monitor heart rate response. She very well may be able to tolerate increase back to 50 mg daily but will observe and 25 mg for now. (3) Paroxysmal A-fib: Code(s): I48.0 - Paroxysmal atrial fibrillation Status: Acute Assessment and Plan: Heart rate control, bradycardic intermittently as above. Resume Toprol XL tomorrow morning 25 mg daily. Continue systemic anticoagulation with Eliquis 5 mg twice daily. Follow H&H. Monitor for bleeding. Ambulate with extreme caution to avoid risk for falls and injuries. (4) Hyponatremia: Code(s): E87.1 - Hypo-osmolality and hyponatremia Status: Acute Assessment and Plan: Sodium 128 presentation improved to 125. Defer to Nephrology and primary service. She has been started on 2000 mg sodium chloride tablets twice daily by Nephrology. Monitor volume status. (5) Obstructive sleep apnea: Code(s): G47.33 - Obstructive sleep apnea (adult) (pediatric) Status: Acute Assessment and Plan: Apnea link overnight to assess for ANGÉLICA. (6) Acute hypokalemia: Code(s): E87.6 - Hypokalemia Status: Acute Assessment and Plan: Potassium low at 3.0. Recheck in a.m.. Goal potassium around 4.0. (7) Pulmonary hypertension: Code(s): I27.20 - Pulmonary hypertension, unspecified Status: Acute Assessment and Plan: Moderate pulmonary hypertension. Most likely multifactorial to longstanding atrial fibrillation, possible ANGÉLICA, hypertension. She has mild MR and deju-di-tjnzilxz TR but unlikely direct valvular contribution at this time. (8) Acute UTI: Code(s): N39.0 - Urinary tract infection, site not specified Status: Acute Assessment and Plan: Management per primary service. She remains on ceftriaxone. Transition to oral regimen at their discretion. Patient also presented with confusion which has improved. History of Present Illness History of Present Illness Consult date/time: date of service:07/28/23 12:50 Requesting physician: Angie Aguilar MD Consult reason: congestive heart failure and Ot
--- NOTE | 2023-07-28 12:55 | P.CDI_ITS ---
CDI Query Clarification Request CHF noted in the assessment and plan. Patient receiving Lasix. Elevated BNP on 07/26 lab work. Pulmonary edema noted on 07/26 chest xray. Please specify type and acuity of heart failure if known. * Acute * Chronic * Acute on Chronic * Unknown * Systolic * Diastolic * Combined Systolic and Diastolic * Unknown <Amanda Morales RN - Last Filed: 07/28/23 12:58> Clarified Diagnosis Clarified Diagnosis: acute on chronic diastolic chf <Angie Aguilar MD - Last Filed: 07/30/23 13:16>
--- NOTE | 2023-07-28 13:01 | P.CONNP_ITS ---
Assessment and Plan Assessment and plan (1) Hyponatremia: Code(s): E87.1 - Hypo-osmolality and hyponatremia Status: Acute Assessment and Plan: * acute on chronic * since February 2023, sodium running around 129 - 132mmol/L (134mmol/L at best) * noted sodium level of 120mmol/L on admission * several risk factors * known renal malignancy * HCTZ use * volume overload/CHF * history of CVAs * improvement noted with combination of IV diuresis + salt tabs * given her CHF, will reduce salt tabs dosage and initiate fluid restriction -- if possible, wean salt tabs * check TSH, cortisol, SPEP, UPEP, and urine electrolytes * interpretation of urine electrolytes might be skewed by use of IV lasix * follow trend of repeat sodium levels (2) Acute hypoxemic respiratory failure: Code(s): J96.01 - Acute respiratory failure with hypoxia Status: Acute Assessment and Plan: * presumably due to volume overload + CHF exacerbation + ANGÉLICA * IV diuretics initiated * clinical improvement noted * follow respiratory status (3) CHF (congestive heart failure): Qualifiers: Heart failure chronicity: acute Heart failure type: diastolic Qualified Code(s): I50.31 - Acute diastolic (congestive) heart failure Code(s): I50.9 - Heart failure, unspecified Status: Acute Assessment and Plan: * Cardiology following * follow I/Os, daily weights, and clinical status * continue current management (4) Acute UTI: Code(s): N39.0 - Urinary tract infection, site not specified Status: Acute Assessment and Plan: * admission UA suggestive * on antibiotics * follow culture data (5) Essential hypertension: Code(s): I10 - Essential (primary) hypertension Status: Acute Assessment and Plan: * reasonable control * follow trend of hemodynamics (6) Type 2 diabetes mellitus with hyperglycemia: Code(s): E11.65 - Type 2 diabetes mellitus with hyperglycemia Status: Chronic Assessment and Plan: * despite history, blood sugars stable * on no medications at this time * follow accu-cheks I will continue to follow patient with you while [facility] further recommendations as needed. Thank you for allowing me to participate in care of this patient. History of Present Illness Reason for Consult Consult date: 07/28/23 Reason for consult: hyponatremia Chief Complaint Chief complaint: Acute Hypoxic Respiratory Failure/UTI/CHF/Hyponatr History of Present Illness Narrative: The patient is an 83-year-old female with a past medical history as outlined below who presented to [facility] Emergency room from her nursing facility due to complaints of shortness of breath in association with hypoxia. According to the shelter records, the patient was found to have generalized weakness and had been somewhat less active than usual. Reportedly, in the process of evaluation she was noted to be quite hypoxic with oxygen saturations in the 80 percentile range. She was started on supplemental oxygen and given this change in her clinical status, was transferred to the emergency room for further assessment. Workup and evaluation in the emergency room demonstrated the patient be hemodynamically stable but routine blood tests were significant for severe hyponatremia with a sodium level 120 in association with an elevated BNP of 36 60. Her ABG showed hypoxemia and hypercapnia in association with her respiratory failure. Her CBC was remarkable f
--- NOTE | 2023-07-28 13:01 | PM.CNNEP ---
Assessment and Plan Assessment and plan (1) Hyponatremia: Code(s): E87.1 - Hypo-osmolality and hyponatremia Status: Acute Assessment and Plan: acute on chronic since February 2023, sodium running around 129 - 132mmol/L (134mmol/L at best) noted sodium level of 120mmol/L on admission several risk factors known renal malignancy HCTZ use volume overload/CHF history of CVAs improvement noted with combination of IV diuresis + salt tabs given her CHF, will reduce salt tabs dosage and initiate fluid restriction -- if possible, wean salt tabs check TSH, cortisol, SPEP, UPEP, and urine electrolytes interpretation of urine electrolytes might be skewed by use of IV lasix follow trend of repeat sodium levels (2) Acute hypoxemic respiratory failure: Code(s): J96.01 - Acute respiratory failure with hypoxia Status: Acute Assessment and Plan: presumably due to volume overload + CHF exacerbation + ANÉGLICA IV diuretics initiated clinical improvement noted follow respiratory status (3) CHF (congestive heart failure): Qualifiers: Heart failure chronicity: acute Heart failure type: diastolic Qualified Code(s): I50.31 - Acute diastolic (congestive) heart failure Code(s): I50.9 - Heart failure, unspecified Status: Acute Assessment and Plan: Cardiology following follow I/Os, daily weights, and clinical status continue current management (4) Acute UTI: Code(s): N39.0 - Urinary tract infection, site not specified Status: Acute Assessment and Plan: admission UA suggestive on antibiotics follow culture data (5) Essential hypertension: Code(s): I10 - Essential (primary) hypertension Status: Acute Assessment and Plan: reasonable control follow trend of hemodynamics (6) Type 2 diabetes mellitus with hyperglycemia: Code(s): E11.65 - Type 2 diabetes mellitus with hyperglycemia Status: Chronic Assessment and Plan: despite history, blood sugars stable on no medications at this time follow accu-cheks I will continue to follow patient with you while she remains hospitalized to make further recommendations as needed. Thank you for allowing me to participate in care of this patient. History of Present Illness Reason for Consult Consult date: 07/28/23 Reason for consult: hyponatremia Chief Complaint Chief complaint: Acute Hypoxic Respiratory Failure/UTI/CHF/Hyponatr History of Present Illness Narrative: The patient is an 83-year-old female with a past medical history as outlined below who presented to [facility] Emergency room from her nursing facility due to complaints of shortness of breath in association with hypoxia. According to the alf records, the patient was found to have generalized weakness and had been somewhat less active than usual. Reportedly, in the process of evaluation she was noted to be quite hypoxic with oxygen saturations in the 80 percentile range. She was started on supplemental oxygen and given this change in her clinical status, was transferred to the emergency room for further assessment. Workup and evaluation in the emergency room demonstrated the patient be hemodynamically stable but routine blood tests were significant for severe hyponatremia with a sodium level 120 in association with an elevated BNP of 36 60. Her ABG showed hypoxemia and hypercapnia in association with her respiratory failure. Her CBC was remarkable for anemia which was close to her baseline and her urinalysis was somewhat suggestive of a possible urinary tract infection. She subsequent underwent a CTA of her chest with demonstrated no evidence of pulmonary embolism but did show significant pulmonary edema. She was initiated on IV diuretic therapy for presumed volume overload /CHF and started on antibiotic therapy for her presumed urinary tract infection after appropriate
[2023-07-28 14:10] LABS: Magnesium 1.4 mg/dL (1.6-2.3)
[2023-07-28] MEDS: MAGNESIUM SULF 2 GM/WATER 50ML 2 GM/50 ML BAG IVPB (17:14)
[2023-07-28] MEDS: POTASSIUM CHLORIDE 20 MEQ PACKET (FOR LIQUID) 40 MEQ PO (17:15)
[2023-07-28] MEDS: MELATONIN 3 MG TABLET PO (22:01)
[2023-07-29] VITALS (10 sets, daily range): BP systolic 106–148; BP diastolic 44–62; PULSE 49–72; RESP 16–18; TEMP 36.3–36.9; O2SAT 93–96
--- NOTE | 2023-07-29 03:43 | PCRCNOTE ---
Was called to pt room due to her taking off her pulse ox from her apnea link study, the time it was off is unkown, placed back on pt to attempt to complete the overnight study.
[2023-07-29 05:43] LABS: Potassium 3.1 mmol/L (3.4-5.0)
[2023-07-29 05:56] LABS: Albumin Level 2.9 g/dL (3.5-5.1); Blood Urea Nitrogen 12 mg/dL (7-17); Calcium 7.6 mg/dL (8.4-10.2); Carbon Dioxide > 40 mmol/L (22-30); Chloride 86 mmol/L (98-107); Estimated CRCL calculation 77 ml/min; Estimated Glomerular Filt Rate > 60; Glucose 93 mg/dL (65-110); Magnesium 1.8 mg/dL (1.6-2.3); Phosphorus 3.3 mg/dL (2.5-4.5); Sodium 129 mmol/L (137-145)
[2023-07-29] MEDS: CEPHALEXIN 500 MG CAPSULE PO ×4 (06:07→23:53)
[2023-07-29] MEDS: FUROSEMIDE INJ 40 MG/4 ML VIAL IV PUSH (09:20)
[2023-07-29] MEDS: POTASSIUM CHLORIDE 20 MEQ PACKET (FOR LIQUID) 40 MEQ PO ×2 (09:20→16:21)
[2023-07-29] MEDS: SODIUM CHLORIDE 1 GM TABLET PO ×2 (09:21→16:21)
[2023-07-29] MEDS: FERROUS SULFATE 325 MG TABLET DR PO ×2 (09:21→16:21)
[2023-07-29] MEDS: CHOLECALCIFEROL 1,000 UNITS TABLET 1000 UNITS PO (09:21)
[2023-07-29] MEDS: MEMANTINE 10 MG TABLET PO ×2 (09:21→16:20)
[2023-07-29] MEDS: APIXABAN 5 MG TABLET PO ×2 (09:21→16:21)
[2023-07-29] MEDS: ATORVASTATIN 40 MG TABLET PO (09:21)
[2023-07-29] MEDS: BRIMONIDINE TARTRATE 0.2% OP SOLN 5 ML BTL 1 DROP RIGHT EYE ×2 (09:21→20:37)
[2023-07-29] MEDS: TELMISARTAN 40 MG TABLET 80 MG PO (09:21)
[2023-07-29] MEDS: DORZOLAMIDE/TIMOLOL OPHTH SOL 10 ML BOTTLE 1 DROP RIGHT EYE ×2 (09:21→20:37)
--- NOTE | 2023-07-29 10:19 | PM.PNCARD ---
Progress Note: A&P Assessment and Plan (1) CHF (congestive heart failure): Qualifiers: Heart failure chronicity: acute Heart failure type: diastolic Qualified Code(s): I50.31 - Acute diastolic (congestive) heart failure Code(s): I50.9 - Heart failure, unspecified Status: Acute Assessment and Plan: Patient presents with acute heart failure with preserved ejection fraction acute hypoxic respiratory failure requiring O2 supplementation. ProBNP mildly elevated 3660, chest x-ray and CTA with pleural effusions and pulmonary vascular congestion. Patient clinically and symptomatically much improved with IV diuresis with resolution of edema, coughing and complaints of shortness of breath. Echocardiogram reviewed. EF preserved 65-70% mild LVH paradoxical septal wall motion abnormality borderline mild aortic stenosis, mild MR, kcwj-ex-pxtfuptr TR, moderate pulmonary hypertension. Appears euvolemic on exam today. Will shift to p.o. furosemide. Cardiology will sign off please call with questions. (2) Bradycardia: Code(s): R00.1 - Bradycardia, unspecified Status: Acute Assessment and Plan: Asymptomatic transient bradycardia in persistent AFib. This is not an acute issue but persistent bradycardia may increase risk for falls and potential catastrophic bleeding complications on systemic anticoagulation. Heart rate generally in the 50's. Resume Toprol XL tomorrow at low dose, 12.5mg daily and observe on telemetry for recurrent bradycardia. (3) Paroxysmal A-fib: Code(s): I48.0 - Paroxysmal atrial fibrillation Status: Acute Assessment and Plan: Heart rate control, bradycardic intermittently as above. Resume Toprol XL tomorrow morning 12.5 mg daily. Continue systemic anticoagulation with Eliquis 5 mg twice daily. Follow H&H. Monitor for bleeding. Ambulate with extreme caution to avoid risk for falls and injuries. (4) Hyponatremia: Code(s): E87.1 - Hypo-osmolality and hyponatremia Status: Acute Assessment and Plan: Improving (5) Obstructive sleep apnea: Code(s): G47.33 - Obstructive sleep apnea (adult) (pediatric) Status: Acute Assessment and Plan: Apnea link overnight to assess for ANGÉLICA. (6) Acute hypokalemia: Code(s): E87.6 - Hypokalemia Status: Acute Assessment and Plan: Potassium low at 3.1. Recheck in a.m.. Goal potassium around 4.0. (7) Pulmonary hypertension: Code(s): I27.20 - Pulmonary hypertension, unspecified Status: Acute Assessment and Plan: Moderate pulmonary hypertension. Most likely multifactorial to longstanding atrial fibrillation, possible ANGÉLICA, hypertension. She has mild MR and caib-xv-ekuvatwr TR but unlikely direct valvular contribution at this time. (8) Acute UTI: Code(s): N39.0 - Urinary tract infection, site not specified Status: Acute Assessment and Plan: Management per primary service. She remains on ceftriaxone. Transition to oral regimen at their discretion. Patient also presented with confusion which has improved. Subjective Date/time seen: 07/29/23 10:19 Interval history: Cardiology follow up for CHF, AF She is very sleepy this morning. Denies shortness of breath, swelling, chest pain Review of Systems Review of Systems: Remainder of the review of systems is otherwise negative aside from that noted in the HPI. All systems reviewed & are unremarkable except as noted in HPI and below Constitutional: Constitutional: Reports as per HPI and Reports no additional constitutional complaints Eyes: Eyes: Reports as per HPI and Reports no additional eye complaints ENT: Reports system reviewed and no additional complaints, except as documented and Reports as per HPI Cardiovascular: Cardiovascular: Reports as per HPI and Reports no additional cardiovascular complaints Respiratory: Respiratory: Reports as per HPI and Reports no a
--- NOTE | 2023-07-29 11:05 | PC.NURSE ---
On 07/29/23, the student, [Cory Canales], provided care and completed [facility] documentation on this patient. I have reviewed the student's documentation and agree with the findings.
--- NOTE | 2023-07-29 13:09 | PM.IMPN ---
Progress Note: A&P Assessment and Plan (1) Acute hypoxemic respiratory failure: Code(s): J96.01 - Acute respiratory failure with hypoxia Status: Acute (2) Acute UTI: Code(s): N39.0 - Urinary tract infection, site not specified Status: Acute (3) Hyponatremia: Code(s): E87.1 - Hypo-osmolality and hyponatremia Status: Acute (4) Acute heart failure: Code(s): I50.9 - Heart failure, unspecified Status: Acute (5) CHF (congestive heart failure): Qualifiers: Heart failure chronicity: acute Heart failure type: diastolic Qualified Code(s): I50.31 - Acute diastolic (congestive) heart failure Code(s): I50.9 - Heart failure, unspecified Status: Acute (6) Obstructive sleep apnea: Code(s): G47.33 - Obstructive sleep apnea (adult) (pediatric) Status: Acute (7) Type 2 diabetes mellitus with hyperglycemia: Code(s): E11.65 - Type 2 diabetes mellitus with hyperglycemia Status: Acute (8) Anemia: Qualifiers: Anemia type: unspecified type Qualified Code(s): D64.9 - Anemia, unspecified Code(s): D64.9 - Anemia, unspecified Status: Acute (9) Essential hypertension: Code(s): I10 - Essential (primary) hypertension Status: Acute (10) Microcytic anemia: Code(s): D50.9 - Iron deficiency anemia, unspecified Status: Acute (11) Type 2 diabetes mellitus without complication: Qualifiers: Diabetes mellitus terminal superintendent insulin use: without terminal superintendent use Qualified Code(s): E11.9 - Type 2 diabetes mellitus without complications Code(s): E11.9 - Type 2 diabetes mellitus without complications Status: Acute (12) Short-term memory loss: Code(s): R41.3 - Other amnesia Status: Acute Plan Acute respiratory failure with hypoxemia and hypercapnia Possible due to fluid overload, acute a chronic heart failure superimposed the ANGÉLICA Continue O2 supplement therapy, pt appears more stable today with breathing CXR shows - Mild to moderate pulmonary edema pattern with small bilateral pleural effusions. Pt is on iv lasix BID Acute on chronic heart failure Patient has hypertension, possible has diastolic dysfunction, CTA shows no PE but pulmonary congestion. Patient was also found have elevated BNP in the ED Continue Lasix 40 mg b.i.d. IV push sp echo showing ef 60% add potassium supplementation Sinus bradycardia Hold beta ainsa Continue telemetry monitoring Cardiology consulted Acute UTI UA shows pyuria Continue ceftriaxone 1 g IV daily UC shows ECOLI Hyponatremia Sodium 120, lower than baseline, patient has chronic hyponatremia Likely secondary to hydrochlorothiazide Provide sodium chloride tablets supplement sodium is 129 will consult nephrology Essential hypertension Discontinue hydrochlorothiazide because of hyponatremia Continue telmisartan 80 mg daily Hold amlodipine Now patient is on Lasix 40 mg IV b.i.d. Monitor blood pressure closely Chronic AFib Rate control restart metoprolol at 25mg po qdaily. Eliquis 5 mg b.i.d. p.o. pt had some bradycardia yesterday in hospital beta anisa cut back today check bmp and mg levels Chronic anemia Close to baseline No obvious bleeding Continue ferrous sulfate p.o. to 35 mg b.i.d. Dementia Continue movement and 10 mg b.i.d. p.o. Subjective Date/time seen: 07/29/23 13:09 Interval history: 83-year-old female with history of AFib, on Eliquis, ANGÉLICA, renal cell carcinoma, chronic anemia, chronic hyponatremia, CVA, diabetes, hypertension, dementia brought to ED from [facility] because of shortness of breath and hypoxia.? Patient was found have general weakness, and less active.?? Pt admitted for UTI and acute on chronic diastolic CHF UC is shows ecoli Echo result is as below Left Ventricle ? Left ventricular chamber dimension is normal. ? Left ventricular systolic fun
--- NOTE | 2023-07-29 13:34 | PM.PNNEP ---
Progress Note: A&P Assessment and Plan (1) Hyponatremia: Code(s): E87.1 - Hypo-osmolality and hyponatremia Status: Acute Assessment and Plan: improvement noted acute on chronic since February 2023, sodium running around 129 - 132mmol/L (134mmol/L at best) noted sodium level of 120mmol/L on admission several risk factors known renal malignancy HCTZ use volume overload/CHF history of CVAs improvement noted with combination of diuretis + salt tabs + fluid restriction evaluation to date: TSH and cortisol okay SPEP/UPEP pending urine electrolytes non-prerenal follow trend of repeat sodium levels (2) Acute hypoxemic respiratory failure: Code(s): J96.01 - Acute respiratory failure with hypoxia Status: Acute Assessment and Plan: clinical improvemetn noted presumably due to volume overload + CHF exacerbation + ANGÉLICA follow respiratory status (3) CHF (congestive heart failure): Qualifiers: Heart failure chronicity: acute Heart failure type: diastolic Qualified Code(s): I50.31 - Acute diastolic (congestive) heart failure Code(s): I50.9 - Heart failure, unspecified Status: Acute Assessment and Plan: Cardiology following follow I/Os, daily weights, and clinical status continue current management (4) Acute UTI: Code(s): N39.0 - Urinary tract infection, site not specified Status: Acute Assessment and Plan: admission UA suggestive on antibiotics urine culture with E.coli (5) Essential hypertension: Code(s): I10 - Essential (primary) hypertension Status: Acute Assessment and Plan: reasonable control follow trend of hemodynamics (6) Dementia: Qualifiers: Dementia type: unspecified type Dementia behavioral or psychological symptom: without behavioral, psychotic, or mood disturbance or anxiety Dementia severity: unspecified severity Qualified Code(s): F03.90 - Unspecified dementia, unspecified severity, without behavioral disturbance, psychotic disturbance, mood disturbance, and anxiety Code(s): F03.90 - Unspecified dementia, unspecified severity, without behavioral disturbance, psychotic disturbance, mood disturbance, and anxiety Status: Chronic Assessment and Plan: stable Will continue to follow. Subjective Date/time seen: 07/29/23 13:34 Interval history: Follow-up for acute on chronic hyponatremia. No apparent distress noted at the time of my visit although she appeared for sleepy/lethargic when seen in comparison to yesterday; sodium continues to improve with current interventions; diuretics being transitioned to oral formulation. Exam Narrative: General: elderly but WD/WN female in NAD Heart: normal S1 and S2; no rub Lungs: clear anteriorly, decreased at bases Abdomen: soft, nontender, nondistended, positive bowel sounds Extremities: no cyanosis or clubbing; no edema Skin: warm and dry Objective Data Vital Signs Vital Signs: Vital Signs Temp Pulse Resp BP Pulse Ox O2 Del Method O2 Flow Rate 07/29/23 13:25 98.4 F 72 16 106/44 L 96 07/29/23 12:00 52 L 07/29/23 08:00 49 L 07/29/23 10:01 67 18 93 Nasal Cannula 1 07/29/23 08:00 93 Room Air 07/29/23 08:29 Nasal Cannula 1 07/29/23 05:24 98.4 F 67 18 148/62 H 93 07/29/23 04:00 51 L 07/29/23 00:00 59 L 07/28/23 20:00 97 Nasal Cannula 1 07/28/23 20:00 50 L 07/28/23 20:13 98.5 F 55 L 18 139/56 L 97 Intake/Output Intake/Output: Intake & Output 07/26/23 07/27/23 07/28/23 07/29/23 23:59 23:59 23:59 23:59 Intake Total 350 722 3525 480 Output Total 1750 800 Balance -1310 -30 1630 480 Meds/Results Medications: Active Medications Generic Name Dose Route Start Last Admin Trade Name Freq PRN Reason Stop Dose Admin Acetaminophen 650 mg 07/26/23 07:43 A
--- NOTE | 2023-07-29 13:34 | P.PNNP_ITS ---
Progress Note: A&P Assessment and Plan (1) Hyponatremia: Code(s): E87.1 - Hypo-osmolality and hyponatremia Status: Acute Assessment and Plan: * improvement noted * acute on chronic * since February 2023, sodium running around 129 - 132mmol/L (134mmol/L at best) * noted sodium level of 120mmol/L on admission * several risk factors * known renal malignancy * HCTZ use * volume overload/CHF * history of CVAs * improvement noted with combination of diuretis + salt tabs + fluid restriction * evaluation to date: * TSH and cortisol okay * SPEP/UPEP pending * urine electrolytes non-prerenal * follow trend of repeat sodium levels (2) Acute hypoxemic respiratory failure: Code(s): J96.01 - Acute respiratory failure with hypoxia Status: Acute Assessment and Plan: * clinical improvemetn noted * presumably due to volume overload + CHF exacerbation + ANGÉLICA * follow respiratory status (3) CHF (congestive heart failure): Qualifiers: Heart failure chronicity: acute Heart failure type: diastolic Qualified Code(s): I50.31 - Acute diastolic (congestive) heart failure Code(s): I50.9 - Heart failure, unspecified Status: Acute Assessment and Plan: * Cardiology following * follow I/Os, daily weights, and clinical status * continue current management (4) Acute UTI: Code(s): N39.0 - Urinary tract infection, site not specified Status: Acute Assessment and Plan: * admission UA suggestive * on antibiotics * urine culture with E.coli (5) Essential hypertension: Code(s): I10 - Essential (primary) hypertension Status: Acute Assessment and Plan: * reasonable control * follow trend of hemodynamics (6) Dementia: Qualifiers: Dementia type: unspecified type Dementia behavioral or psychological symptom: without behavioral, psychotic, or mood disturbance or anxiety Dementia severity: unspecified severity Qualified Code(s): F03.90 - Unspecified dementia, unspecified severity, without behavioral disturbance, psychotic disturbance, mood disturbance, and anxiety Code(s): F03.90 - Unspecified dementia, unspecified severity, without behavioral disturbance, psychotic disturbance, mood disturbance, and anxiety Status: Chronic Assessment and Plan: * stable Will continue to follow. Subjective Date/time seen: 07/29/23 13:34 Interval history: Follow-up for acute on chronic hyponatremia. No apparent distress noted at the time of my visit although she appeared for sleepy/lethargic when seen in comparison to yesterday; sodium continues to improve with current interventions; diuretics being transitioned to oral formulation. Exam Narrative: General: elderly but WD/WN female in NAD Heart: normal S1 and S2; no rub Lungs: clear anteriorly, decreased at bases Abdomen: soft, nontender, nondistended, positive bowel sounds Extremities: no cyanosis or clubbing; no edema Skin: warm and dry Objective Data Vital Signs Vital Signs: Vital Signs Temp Pulse Resp BP Pulse Ox O2 Del Method O2 Flow Rate 07/29/23 13:25 98.4 F 72 16 106/44 L 96 07/29/23 12:00 52 L 07/29/23 08:00 49 L 07/29/23 10:01 67 18 93 Nasal Cannula 1 07/29/23 08:00 93 Room Air 07/29/23 08:29
[2023-07-29] MEDS: FUROSEMIDE 40 MG TABLET PO (16:21)
[2023-07-29] MEDS: MELATONIN 3 MG TABLET PO (20:37)
[2023-07-29] MEDS: MAGNESIUM OXIDE 200 MG TABLET PO (20:37)
[2023-07-30] VITALS (10 sets, daily range): BP systolic 115–146; BP diastolic 47–50; PULSE 61–75; RESP 16–18; TEMP 36.8–37.1; O2SAT 91–98
[2023-07-30] MEDS: CEPHALEXIN 500 MG CAPSULE PO ×3 (05:48→17:00)
[2023-07-30 06:20] LABS: Albumin Level 2.9 g/dL (3.5-5.1); Anion Gap 5 mmol/L (8-16); Blood Urea Nitrogen 13 mg/dL (7-17); Calcium 8.1 mg/dL (8.4-10.2); Carbon Dioxide 35 mmol/L (22-30); Chloride 88 mmol/L (98-107); Estimated CRCL calculation 77 ml/min; Estimated Glomerular Filt Rate > 60; Glucose 98 mg/dL (65-110); Magnesium 1.7 mg/dL (1.6-2.3); Phosphorus 3.3 mg/dL (2.5-4.5); Potassium 3.9 mmol/L (3.4-5.0); Sodium 128 mmol/L (137-145)
[2023-07-30] MEDS: APIXABAN 5 MG TABLET PO ×2 (08:03→16:57)
[2023-07-30] MEDS: DORZOLAMIDE/TIMOLOL OPHTH SOL 10 ML BOTTLE 1 DROP RIGHT EYE ×2 (08:04→20:02)
[2023-07-30] MEDS: ATORVASTATIN 40 MG TABLET PO (08:04)
[2023-07-30] MEDS: BRIMONIDINE TARTRATE 0.2% OP SOLN 5 ML BTL 1 DROP RIGHT EYE ×2 (08:04→20:02)
[2023-07-30] MEDS: CHOLECALCIFEROL 1,000 UNITS TABLET 1000 UNITS PO (08:05)
[2023-07-30] MEDS: FERROUS SULFATE 325 MG TABLET DR PO ×2 (08:05→16:57)
[2023-07-30] MEDS: MAGNESIUM OXIDE 200 MG TABLET PO ×2 (08:06→20:02)
[2023-07-30] MEDS: FUROSEMIDE 40 MG TABLET PO ×2 (08:06→16:57)
[2023-07-30] MEDS: MEMANTINE 10 MG TABLET PO ×2 (08:06→16:57)
[2023-07-30] MEDS: METOPROLOL SUCCINATE EXT REL 12.5 MG TABCR PO (08:07)
[2023-07-30] MEDS: SODIUM CHLORIDE 1 GM TABLET PO ×2 (08:08→16:58)
[2023-07-30] MEDS: POTASSIUM CHLORIDE 20 MEQ PACKET (FOR LIQUID) 40 MEQ PO ×2 (08:08→16:58)
[2023-07-30] MEDS: TELMISARTAN 40 MG TABLET 80 MG PO (08:08)
--- NOTE | 2023-07-30 10:37 | PM.PNNEP ---
Progress Note: A&P Assessment and Plan (1) Hyponatremia: Code(s): E87.1 - Hypo-osmolality and hyponatremia Status: Acute Assessment and Plan: improvement noted acute on chronic since February 2023, sodium running around 129 - 132mmol/L (134mmol/L at best) noted sodium level of 120mmol/L on admission several risk factors known renal malignancy HCTZ use volume overload/CHF history of CVAs improvement noted with combination of diuretis + salt tabs + fluid restriction evaluation to date: TSH and cortisol okay SPEP/UPEP pending urine electrolytes non-prerenal follow trend of repeat sodium levels (2) Acute hypoxemic respiratory failure: Code(s): J96.01 - Acute respiratory failure with hypoxia Status: Acute Assessment and Plan: clinical improvemetn noted presumably due to volume overload + CHF exacerbation + ANGÉLICA follow respiratory status (3) CHF (congestive heart failure): Qualifiers: Heart failure chronicity: acute Heart failure type: diastolic Qualified Code(s): I50.31 - Acute diastolic (congestive) heart failure Code(s): I50.9 - Heart failure, unspecified Status: Acute Assessment and Plan: Cardiology following follow I/Os, daily weights, and clinical status continue current management (4) Acute UTI: Code(s): N39.0 - Urinary tract infection, site not specified Status: Acute Assessment and Plan: admission UA suggestive on antibiotics urine culture with E.coli (5) Essential hypertension: Code(s): I10 - Essential (primary) hypertension Status: Acute Assessment and Plan: reasonable control follow trend of hemodynamics (6) Dementia: Qualifiers: Dementia type: unspecified type Dementia behavioral or psychological symptom: without behavioral, psychotic, or mood disturbance or anxiety Dementia severity: unspecified severity Qualified Code(s): F03.90 - Unspecified dementia, unspecified severity, without behavioral disturbance, psychotic disturbance, mood disturbance, and anxiety Code(s): F03.90 - Unspecified dementia, unspecified severity, without behavioral disturbance, psychotic disturbance, mood disturbance, and anxiety Status: Chronic Assessment and Plan: stable Will continue to follow. Subjective Date/time seen: 07/30/23 10:37 Interval history: Follow-up for acute on chronic hyponatremia. Appears about the same at this time; sodium about the same in the last 24 hours; weaned off supplemental oxygen and remains on oral diuretic therapy; no events overnight or earlier this AM. Exam Narrative: General: elderly but WD/WN female in NAD Heart: normal S1 and S2; no rub Lungs: clear anteriorly, decreased at bases Abdomen: soft, nontender, nondistended, positive bowel sounds Extremities: no cyanosis or clubbing; no edema Skin: warm and intact Objective Data Vital Signs Vital Signs: Vital Signs Temp Pulse Resp BP Pulse Ox O2 Del Method 07/30/23 10:11 98.8 F 72 17 127/50 L 96 07/30/23 07:58 Room Air 07/30/23 08:07 66 07/30/23 05:06 98.6 F 62 18 146/47 H 91 07/30/23 04:00 61 07/30/23 00:00 62 07/29/23 20:00 Room Air 07/29/23 20:00 59 L 07/29/23 20:29 97.4 F L 62 17 132/46 L 95 Intake/Output Intake/Output: Intake & Output 07/27/23 07/28/23 07/29/23 07/30/23 23:59 23:59 23:59 23:59 Intake Total 770 1630 1400 120 Output Total 800 150 Balance -30 1630 1400 -30 Meds/Results Medications: Active Medications Generic Name Dose Route Start Last Admin Trade Name Ulyssesq PRN Reason Stop Dose Admin Acetaminophen 650 mg 07/26/23 07:43 Acetaminophen 325 Mg Tablet PO Q4H PRN Pain (Scale Score 1-3) Amlodipine Besylate 10 mg 07/30/23 11:00 07/30/23 12:20 Amlodipine Besylate 5 Mg Tablet PO 10 mg [facility] Administrat
--- NOTE | 2023-07-30 10:37 | P.PNNP_ITS ---
Progress Note: A&P Assessment and Plan (1) Hyponatremia: Code(s): E87.1 - Hypo-osmolality and hyponatremia Status: Acute Assessment and Plan: * improvement noted * acute on chronic * since February 2023, sodium running around 129 - 132mmol/L (134mmol/L at best) * noted sodium level of 120mmol/L on admission * several risk factors * known renal malignancy * HCTZ use * volume overload/CHF * history of CVAs * improvement noted with combination of diuretis + salt tabs + fluid restriction * evaluation to date: * TSH and cortisol okay * SPEP/UPEP pending * urine electrolytes non-prerenal * follow trend of repeat sodium levels (2) Acute hypoxemic respiratory failure: Code(s): J96.01 - Acute respiratory failure with hypoxia Status: Acute Assessment and Plan: * clinical improvemetn noted * presumably due to volume overload + CHF exacerbation + ANGÉLICA * follow respiratory status (3) CHF (congestive heart failure): Qualifiers: Heart failure chronicity: acute Heart failure type: diastolic Qualified Code(s): I50.31 - Acute diastolic (congestive) heart failure Code(s): I50.9 - Heart failure, unspecified Status: Acute Assessment and Plan: * Cardiology following * follow I/Os, daily weights, and clinical status * continue current management (4) Acute UTI: Code(s): N39.0 - Urinary tract infection, site not specified Status: Acute Assessment and Plan: * admission UA suggestive * on antibiotics * urine culture with E.coli (5) Essential hypertension: Code(s): I10 - Essential (primary) hypertension Status: Acute Assessment and Plan: * reasonable control * follow trend of hemodynamics (6) Dementia: Qualifiers: Dementia type: unspecified type Dementia behavioral or psychological symptom: without behavioral, psychotic, or mood disturbance or anxiety Dementia severity: unspecified severity Qualified Code(s): F03.90 - Unspecified dementia, unspecified severity, without behavioral disturbance, psychotic disturbance, mood disturbance, and anxiety Code(s): F03.90 - Unspecified dementia, unspecified severity, without behavioral disturbance, psychotic disturbance, mood disturbance, and anxiety Status: Chronic Assessment and Plan: * stable Will continue to follow. Subjective Date/time seen: 07/30/23 10:37 Interval history: Follow-up for acute on chronic hyponatremia. Appears about the same at this time; sodium about the same in the last 24 hours; weaned off supplemental oxygen and remains on oral diuretic therapy; no events overnight or earlier this AM. Exam Narrative: General: elderly but WD/WN female in NAD Heart: normal S1 and S2; no rub Lungs: clear anteriorly, decreased at bases Abdomen: soft, nontender, nondistended, positive bowel sounds Extremities: no cyanosis or clubbing; no edema Skin: warm and intact Objective Data Vital Signs Vital Signs: Vital Signs Temp Pulse Resp BP Pulse Ox O2 Del Method 07/30/23 10:11 98.8 F 72 17 127/50 L 96 07/30/23 07:58 Room Air 07/30/23 08:07 66 07/30/23 05:06 98.6 F 62 18 146/47 H 91 07/30/23 04:00 61 07/30/23 00:00 62 07/29/23 20:00 Room Air 07/29/23 20:0
--- NOTE | 2023-07-30 10:42 | PM.IMPN ---
Progress Note: A&P Assessment and Plan (1) Acute hypoxemic respiratory failure: Code(s): J96.01 - Acute respiratory failure with hypoxia Status: Acute (2) Acute UTI: Code(s): N39.0 - Urinary tract infection, site not specified Status: Acute (3) Hyponatremia: Code(s): E87.1 - Hypo-osmolality and hyponatremia Status: Acute (4) Acute heart failure: Code(s): I50.9 - Heart failure, unspecified Status: Acute (5) CHF (congestive heart failure): Qualifiers: Heart failure chronicity: acute Heart failure type: diastolic Qualified Code(s): I50.31 - Acute diastolic (congestive) heart failure Code(s): I50.9 - Heart failure, unspecified Status: Acute (6) Obstructive sleep apnea: Code(s): G47.33 - Obstructive sleep apnea (adult) (pediatric) Status: Acute (7) Type 2 diabetes mellitus with hyperglycemia: Code(s): E11.65 - Type 2 diabetes mellitus with hyperglycemia Status: Acute (8) Anemia: Qualifiers: Anemia type: unspecified type Qualified Code(s): D64.9 - Anemia, unspecified Code(s): D64.9 - Anemia, unspecified Status: Acute (9) Essential hypertension: Code(s): I10 - Essential (primary) hypertension Status: Acute (10) Microcytic anemia: Code(s): D50.9 - Iron deficiency anemia, unspecified Status: Acute (11) Type 2 diabetes mellitus without complication: Qualifiers: Diabetes mellitus middle or intermediate school principal insulin use: without middle or intermediate school principal use Qualified Code(s): E11.9 - Type 2 diabetes mellitus without complications Code(s): E11.9 - Type 2 diabetes mellitus without complications Status: Acute (12) Short-term memory loss: Code(s): R41.3 - Other amnesia Status: Acute Plan Acute respiratory failure with hypoxemia and hypercapnia Possible due to fluid overload, acute a chronic heart failure superimposed the ANGÉLICA Continue O2 supplement therapy, pt appears more stable today with breathing Pt is was on iv lasix BID transitioned to oral lasix Dc back to SNF soon Acute on chronic heart failure Patient has hypertension, possible has diastolic dysfunction, CTA shows no PE but pulmonary congestion. Patient was also found have elevated BNP in the ED Continue Lasix 40 mg b.i.d. IV push transitioned to oral sp echo showing ef 60% add potassium supplementation Sinus bradycardia pt can resume metoprolol 12.5 mg po qam Acute UTI UA shows pyuria Continue ceftriaxone 1 g IV daily UC shows ECOLI transitioned to keflex Hyponatremia Sodium 120, lower than baseline, patient has chronic hyponatremia Likely secondary to hydrochlorothiazide and iv lasix Provide sodium chloride tablets supplement sodium is 128 nephrology rounding Essential hypertension Continue telmisartan 80 mg daily restart other home BP medications Chronic AFib Rate control restart metoprolol at 25mg po qdaily. Eliquis 5 mg b.i.d. p.o. pt had some bradycardia yesterday in hospital beta anisa cut back today check bmp and mg levels Chronic anemia Close to baseline No obvious bleeding Continue ferrous sulfate p.o. to 35 mg b.i.d. Dementia Continue movement and 10 mg b.i.d. p.o. Subjective Date/time seen: 07/30/23 10:42 Interval history: 83-year-old female with history of AFib, on Eliquis, ANGÉLICA, renal cell carcinoma, chronic anemia, chronic hyponatremia, CVA, diabetes, hypertension, dementia brought [facility] ED from [facility] because of shortness of breath and hypoxia.? Patient was found have general weakness, and less active.?? Pt admitted for UTI and acute on chronic diastolic CHF UC is shows ecoli Echo result is as below Left Ventricle ? Left ventricular chamber dimension is normal. ? Left ventricular systolic function is normal, estimated at 65-70%. ? There is mildly increased left ventricular wall thickness. ? Left ventricular septal wall motio
[2023-07-30] MEDS: amLODIPine BESYLATE 5 MG TABLET 10 MG PO (12:20)
--- NOTE | 2023-07-30 13:55 | PC.NURSE ---
On 07/30/23, the student, [Manju Girard], provided care and completed [facility] documentation on this patient. I have reviewed the student's documentation and agree with the findings.
[2023-07-31] VITALS (9 sets, daily range): BP systolic 110–150; BP diastolic 55–65; PULSE 57–81; RESP 14–18; TEMP 36.9–37.2; O2SAT 96–98
[2023-07-31] MEDS: CEPHALEXIN 500 MG CAPSULE PO ×5 (00:33→23:10)
[2023-07-31 01:19] LABS: Creatinine Urine 17.5 mg/dL; Total Protein Urine Random 13 mg/dL; Ur Ttl Prot Creatinine Ratio 0.74 mg/mg (0-0.20); Urea Random Urine 203 MG/DL
[2023-07-31 06:19] LABS: Albumin Level 3.3 g/dL (3.5-5.1); Anion Gap 5 mmol/L (8-16); Blood Urea Nitrogen 14 mg/dL (7-17); Calcium 8.7 mg/dL (8.4-10.2); Carbon Dioxide 35 mmol/L (22-30); Chloride 91 mmol/L (98-107); Estimated CRCL calculation 77 ml/min; Estimated Glomerular Filt Rate > 60; Glucose 90 mg/dL (65-110); Phosphorus 3.9 mg/dL (2.5-4.5); Sodium 131 mmol/L (137-145)
--- NOTE | 2023-07-31 09:06 | PM.IMPN ---
Progress Note: A&P Assessment and Plan (1) Acute hypoxemic respiratory failure: Code(s): J96.01 - Acute respiratory failure with hypoxia Status: Acute (2) Acute UTI: Code(s): N39.0 - Urinary tract infection, site not specified Status: Acute (3) Hyponatremia: Code(s): E87.1 - Hypo-osmolality and hyponatremia Status: Acute (4) Acute heart failure: Code(s): I50.9 - Heart failure, unspecified Status: Acute (5) CHF (congestive heart failure): Qualifiers: Heart failure chronicity: acute Heart failure type: diastolic Qualified Code(s): I50.31 - Acute diastolic (congestive) heart failure Code(s): I50.9 - Heart failure, unspecified Status: Acute (6) Obstructive sleep apnea: Code(s): G47.33 - Obstructive sleep apnea (adult) (pediatric) Status: Acute (7) Type 2 diabetes mellitus with hyperglycemia: Code(s): E11.65 - Type 2 diabetes mellitus with hyperglycemia Status: Acute (8) Anemia: Qualifiers: Anemia type: unspecified type Qualified Code(s): D64.9 - Anemia, unspecified Code(s): D64.9 - Anemia, unspecified Status: Acute (9) Essential hypertension: Code(s): I10 - Essential (primary) hypertension Status: Acute (10) Microcytic anemia: Code(s): D50.9 - Iron deficiency anemia, unspecified Status: Acute (11) Type 2 diabetes mellitus without complication: Qualifiers: Diabetes mellitus tank terminal gauger insulin use: without tank terminal gauger use Qualified Code(s): E11.9 - Type 2 diabetes mellitus without complications Code(s): E11.9 - Type 2 diabetes mellitus without complications Status: Acute (12) Short-term memory loss: Code(s): R41.3 - Other amnesia Status: Acute Plan Acute respiratory failure with hypoxemia and hypercapnia Possible due to fluid overload, acute a chronic heart failure superimposed the ANGÉLICA Continue O2 supplement therapy, pt appears more stable today with breathing Pt is was on iv lasix BID transitioned to oral lasix medically stable now Dc back to SNF, awaiting insurance auth Acute on chronic heart failure Patient has hypertension, possible has diastolic dysfunction, CTA shows no PE but pulmonary congestion. Patient was also found have elevated BNP in the ED Continue Lasix 40 mg b.i.d. IV push transitioned to oral sp echo showing ef 60% add potassium supplementation Sinus bradycardia pt can resume metoprolol 12.5 mg po qam Acute UTI UA shows pyuria Continue ceftriaxone 1 g IV daily UC shows ECOLI transitioned to keflex Hyponatremia Sodium 120, lower than baseline, patient has chronic hyponatremia Likely secondary to hydrochlorothiazide and iv lasix Provide sodium chloride tablets supplement sodium is 131 pt is much improved more awake and alert, medically better nephrology rounding Essential hypertension Continue telmisartan 80 mg daily restart other home BP medications Chronic AFib Rate controlled restart metoprolol at 25mg po qdaily. Eliquis 5 mg b.i.d. p.o. pt had some bradycardia yesterday in hospital beta anisa cut back today check bmp and mg levels Chronic anemia Close to baseline No obvious bleeding Continue ferrous sulfate p.o. to 35 mg b.i.d. Dementia Continue movement and 10 mg b.i.d. p.o. CHronic and stable Generalized weakness Pt to participate more with PT PT/ OT updated assessments to insurance Hopeful DC to SNF soon Subjective Date/time seen: 07/31/23 09:06 Interval history: 83-year-old female with history of AFib, on Eliquis, ANGÉLICA, renal cell carcinoma, chronic anemia, chronic hyponatremia, CVA, diabetes, hypertension, dementia brought to ED from [facility] because of shortness of breath and hypoxia.? Patient was found have general weakness, and less active.?? Pt admitted for UTI and acute on chronic diastolic CHF UC is shows ecoli pt transitio
[2023-07-31] MEDS: amLODIPine BESYLATE 5 MG TABLET 10 MG PO (09:20)
[2023-07-31] MEDS: APIXABAN 5 MG TABLET PO ×2 (09:21→17:17)
[2023-07-31] MEDS: ATORVASTATIN 40 MG TABLET PO (09:21)
[2023-07-31] MEDS: FUROSEMIDE 40 MG TABLET PO ×2 (09:22→17:17)
[2023-07-31] MEDS: MAGNESIUM OXIDE 200 MG TABLET PO ×2 (09:22→20:29)
[2023-07-31] MEDS: FERROUS SULFATE 325 MG TABLET DR PO ×2 (09:22→17:17)
[2023-07-31] MEDS: CHOLECALCIFEROL 1,000 UNITS TABLET 1000 UNITS PO (09:22)
[2023-07-31] MEDS: SODIUM CHLORIDE 1 GM TABLET PO ×2 (09:23→17:17)
[2023-07-31] MEDS: METOPROLOL SUCCINATE EXT REL 12.5 MG TABCR PO (09:23)
[2023-07-31] MEDS: DORZOLAMIDE/TIMOLOL OPHTH SOL 10 ML BOTTLE 1 DROP RIGHT EYE ×2 (09:23→20:29)
[2023-07-31] MEDS: TELMISARTAN 40 MG TABLET 80 MG PO (09:23)
[2023-07-31] MEDS: BRIMONIDINE TARTRATE 0.2% OP SOLN 5 ML BTL 1 DROP RIGHT EYE ×2 (09:23→20:29)
[2023-07-31] MEDS: MEMANTINE 10 MG TABLET PO ×2 (09:23→17:17)
[2023-07-31] MEDS: POTASSIUM CHLORIDE 20 MEQ PACKET (FOR LIQUID) 40 MEQ PO ×2 (09:24→17:17)
--- NOTE | 2023-07-31 11:30 | PM.PNNEP ---
Progress Note: A&P Assessment and Plan (1) Hyponatremia: Code(s): E87.1 - Hypo-osmolality and hyponatremia Status: Acute Assessment and Plan: improvement noted acute on chronic since February 2023, sodium running around 129 - 132mmol/L (134mmol/L at best) noted sodium level of 120mmol/L on admission several risk factors known renal malignancy HCTZ use volume overload/CHF history of CVAs improvement noted with combination of diuretis + salt tabs + fluid restriction evaluation to date: TSH and cortisol okay SPEP/UPEP pending urine electrolytes non-prerenal follow trend of repeat sodium levels (2) Acute hypoxemic respiratory failure: Code(s): J96.01 - Acute respiratory failure with hypoxia Status: Acute Assessment and Plan: clinical improvemetn noted presumably due to volume overload + CHF exacerbation + ANGÉLICA follow respiratory status (3) CHF (congestive heart failure): Qualifiers: Heart failure chronicity: acute Heart failure type: diastolic Qualified Code(s): I50.31 - Acute diastolic (congestive) heart failure Code(s): I50.9 - Heart failure, unspecified Status: Acute Assessment and Plan: Cardiology following follow I/Os, daily weights, and clinical status continue current management (4) Acute UTI: Code(s): N39.0 - Urinary tract infection, site not specified Status: Acute Assessment and Plan: admission UA suggestive on antibiotics urine culture with E.coli (5) Essential hypertension: Code(s): I10 - Essential (primary) hypertension Status: Acute Assessment and Plan: reasonable control follow trend of hemodynamics (6) Dementia: Qualifiers: Dementia type: unspecified type Dementia behavioral or psychological symptom: without behavioral, psychotic, or mood disturbance or anxiety Dementia severity: unspecified severity Qualified Code(s): F03.90 - Unspecified dementia, unspecified severity, without behavioral disturbance, psychotic disturbance, mood disturbance, and anxiety Code(s): F03.90 - Unspecified dementia, unspecified severity, without behavioral disturbance, psychotic disturbance, mood disturbance, and anxiety Status: Chronic Assessment and Plan: stable Will continue to follow. Subjective Date/time seen: 07/31/23 11:30 Interval history: Follow-up for acute on chronic hyponatremia. Mentation seems to be doing better at the time of my visit; participating more with PT/OT now that she is more awake; sodium continues to slowly improve with ongoing therapy/interventions. Exam Narrative: General: elderly but WD/WN female in NAD Heart: normal S1 and S2; no rub Lungs: clear anteriorly, decreased at bases Abdomen: soft, nontender, nondistended, positive bowel sounds Extremities: no cyanosis or clubbing; no edema Skin: no rash Objective Data Vital Signs Vital Signs: Vital Signs Temp Pulse Resp BP Pulse Ox O2 Del Method 07/31/23 11:20 98.6 F 81 18 110/60 96 07/31/23 10:00 67 07/31/23 09:19 Room Air 07/31/23 09:55 96 Room Air 07/31/23 09:23 73 07/31/23 04:35 98.9 F 72 16 150/65 H 98 07/31/23 04:00 66 07/31/23 00:00 58 L 07/30/23 20:00 73 07/30/23 19:21 98.3 F 66 16 115/48 L 98 Intake/Output Intake/Output: Intake & Output 07/28/23 07/29/23 07/30/23 07/31/23 23:59 23:59 23:59 23:59 Intake Total 1630 1400 840 240 Output Total 500 Balance 1630 1400 340 240 Meds/Results Medications: Active Medications Generic Name Dose Route Start Last Admin Trade Name Freq PRN Reason Stop Dose Admin Acetaminophen 650 mg 07/26/23 07:43 Acetaminophen 325 Mg Tablet PO Q4H PRN Pain (Scale Score 1-3) Amlodipine Besylate 10 mg 07/30/23 11:00 07/31/23 09:20 Amlodipine Besylate 5 Mg Tablet PO 10 mg [facility]
--- NOTE | 2023-07-31 11:30 | P.PNNP_ITS ---
Progress Note: A&P Assessment and Plan (1) Hyponatremia: Code(s): E87.1 - Hypo-osmolality and hyponatremia Status: Acute Assessment and Plan: * improvement noted * acute on chronic * since February 2023, sodium running around 129 - 132mmol/L (134mmol/L at best) * noted sodium level of 120mmol/L on admission * several risk factors * known renal malignancy * HCTZ use * volume overload/CHF * history of CVAs * improvement noted with combination of diuretis + salt tabs + fluid restriction * evaluation to date: * TSH and cortisol okay * SPEP/UPEP pending * urine electrolytes non-prerenal * follow trend of repeat sodium levels (2) Acute hypoxemic respiratory failure: Code(s): J96.01 - Acute respiratory failure with hypoxia Status: Acute Assessment and Plan: * clinical improvemetn noted * presumably due to volume overload + CHF exacerbation + ANGÉLICA * follow respiratory status (3) CHF (congestive heart failure): Qualifiers: Heart failure chronicity: acute Heart failure type: diastolic Qualified Code(s): I50.31 - Acute diastolic (congestive) heart failure Code(s): I50.9 - Heart failure, unspecified Status: Acute Assessment and Plan: * Cardiology following * follow I/Os, daily weights, and clinical status * continue current management (4) Acute UTI: Code(s): N39.0 - Urinary tract infection, site not specified Status: Acute Assessment and Plan: * admission UA suggestive * on antibiotics * urine culture with E.coli (5) Essential hypertension: Code(s): I10 - Essential (primary) hypertension Status: Acute Assessment and Plan: * reasonable control * follow trend of hemodynamics (6) Dementia: Qualifiers: Dementia type: unspecified type Dementia behavioral or psychological symptom: without behavioral, psychotic, or mood disturbance or anxiety Dementia severity: unspecified severity Qualified Code(s): F03.90 - Unspecified dementia, unspecified severity, without behavioral disturbance, psychotic disturbance, mood disturbance, and anxiety Code(s): F03.90 - Unspecified dementia, unspecified severity, without behavioral disturbance, psychotic disturbance, mood disturbance, and anxiety Status: Chronic Assessment and Plan: * stable Will continue to follow. Subjective Date/time seen: 07/31/23 11:30 Interval history: Follow-up for acute on chronic hyponatremia. Mentation seems to be doing better at the time of my visit; participating more with PT/OT now that she is more awake; sodium continues to slowly improve with ongoing therapy/interventions. Exam Narrative: General: elderly but WD/WN female in NAD Heart: normal S1 and S2; no rub Lungs: clear anteriorly, decreased at bases Abdomen: soft, nontender, nondistended, positive bowel sounds Extremities: no cyanosis or clubbing; no edema Skin: no rash Objective Data Vital Signs Vital Signs: Vital Signs Temp Pulse Resp BP Pulse Ox O2 Del Method 07/31/23 11:20 98.6 F 81 18 110/60 96 07/31/23 10:00 67 07/31/23 09:19 Room Air 07/31/23 09:55 96 Room Air 07/31/23 09:23 73 07/31/23 04:35 98.9 F 72 16 150/65 H 98 07/31/23 04:00 66 07/31/23 00:00 58
[2023-08-01 04:20] VITALS: BP 150/62; PULSE 75; RESP 16; TEMP 36.6; O2SAT 95
[2023-08-01] MEDS: CEPHALEXIN 500 MG CAPSULE PO ×3 (05:22→17:22)
[2023-08-01 05:31] LABS: Anion Gap 7 mmol/L (8-16); Blood Urea Nitrogen 15 mg/dL (7-17); Calcium 8.6 mg/dL (8.4-10.2); Carbon Dioxide 35 mmol/L (22-30); Chloride 89 mmol/L (98-107); Estimated CRCL calculation 64 ml/min; Estimated Glomerular Filt Rate > 60; Glucose 96 mg/dL (65-110); Sodium 131 mmol/L (137-145)
[2023-08-01] MEDS: amLODIPine BESYLATE 5 MG TABLET 10 MG PO (08:38)
[2023-08-01] MEDS: APIXABAN 5 MG TABLET PO ×2 (08:38→17:23)
[2023-08-01] MEDS: FERROUS SULFATE 325 MG TABLET DR PO ×2 (08:39→17:22)
[2023-08-01] MEDS: BRIMONIDINE TARTRATE 0.2% OP SOLN 5 ML BTL 1 DROP RIGHT EYE ×2 (08:39→20:37)
[2023-08-01] MEDS: ATORVASTATIN 40 MG TABLET PO (08:39)
[2023-08-01] MEDS: CHOLECALCIFEROL 1,000 UNITS TABLET 1000 UNITS PO (08:39)
[2023-08-01] MEDS: DORZOLAMIDE/TIMOLOL OPHTH SOL 10 ML BOTTLE 1 DROP RIGHT EYE ×2 (08:39→20:37)
[2023-08-01 08:40] VITALS: PULSE 70
[2023-08-01] MEDS: MAGNESIUM OXIDE 200 MG TABLET PO ×2 (08:40→20:36)
[2023-08-01] MEDS: MEMANTINE 10 MG TABLET PO ×2 (08:40→17:20)
[2023-08-01] MEDS: METOPROLOL SUCCINATE EXT REL 12.5 MG TABCR PO (08:40)
[2023-08-01] MEDS: FUROSEMIDE 40 MG TABLET PO ×2 (08:40→17:22)
[2023-08-01] MEDS: TELMISARTAN 40 MG TABLET 80 MG PO (08:41)
[2023-08-01] MEDS: POTASSIUM CHLORIDE 20 MEQ PACKET (FOR LIQUID) 40 MEQ PO ×2 (08:41→17:19)
[2023-08-01] MEDS: SODIUM CHLORIDE 1 GM TABLET PO ×2 (08:41→17:19)
[2023-08-01 10:28] VITALS: O2SAT 95
--- NOTE | 2023-08-01 12:33 | PM.PNNEP ---
Progress Note: A&P Assessment and Plan (1) Hyponatremia: Code(s): E87.1 - Hypo-osmolality and hyponatremia Status: Acute Assessment and Plan: improvement noted acute on chronic since February 2023, sodium running around 129 - 132mmol/L (134mmol/L at best) noted sodium level of 120mmol/L on admission several risk factors known renal malignancy HCTZ use volume overload/CHF history of CVAs improvement noted with combination of diuretis + salt tabs + fluid restriction evaluation to date: TSH and cortisol okay SPEP/UPEP pending urine electrolytes non-prerenal follow trend of repeat sodium levels (2) Acute hypoxemic respiratory failure: Code(s): J96.01 - Acute respiratory failure with hypoxia Status: Acute Assessment and Plan: clinical improvemetn noted presumably due to volume overload + CHF exacerbation + ANGÉLICA follow respiratory status (3) CHF (congestive heart failure): Qualifiers: Heart failure chronicity: acute Heart failure type: diastolic Qualified Code(s): I50.31 - Acute diastolic (congestive) heart failure Code(s): I50.9 - Heart failure, unspecified Status: Acute Assessment and Plan: Cardiology following follow I/Os, daily weights, and clinical status continue current management (4) Acute UTI: Code(s): N39.0 - Urinary tract infection, site not specified Status: Acute Assessment and Plan: admission UA suggestive on antibiotics urine culture with E.coli (5) Essential hypertension: Code(s): I10 - Essential (primary) hypertension Status: Acute Assessment and Plan: reasonable control follow trend of hemodynamics (6) Dementia: Qualifiers: Dementia type: unspecified type Dementia behavioral or psychological symptom: without behavioral, psychotic, or mood disturbance or anxiety Dementia severity: unspecified severity Qualified Code(s): F03.90 - Unspecified dementia, unspecified severity, without behavioral disturbance, psychotic disturbance, mood disturbance, and anxiety Code(s): F03.90 - Unspecified dementia, unspecified severity, without behavioral disturbance, psychotic disturbance, mood disturbance, and anxiety Status: Chronic Assessment and Plan: stable Not much else to add -- will continue to follow intermittently. Subjective Date/time seen: 08/01/23 12:33 Interval history: Follow-up for acute on chronic hyponatremia. No new issues or problems voiced at this time; overall, it seems the patient is doing better; sodium stable if not improving; no apparent distress; no other complaints to report. Exam Narrative: General: elderly but WD/WN female in NAD Heart: normal S1 and S2; no rub Lungs: clear anteriorly, decreased at bases Abdomen: soft, nontender, nondistended, positive bowel sounds Extremities: no cyanosis or clubbing; no edema Skin: no nodules Objective Data Vital Signs Vital Signs: Vital Signs Temp Pulse Resp BP Pulse Ox O2 Del Method 08/01/23 12:04 97.2 F L 96 18 116/52 L 96 08/01/23 08:35 Room Air 08/01/23 10:28 95 Room Air 08/01/23 08:40 70 08/01/23 04:20 98 F 75 16 150/62 H 95 07/31/23 19:27 98.4 F 66 14 112/55 L 96 Intake/Output Intake/Output: Intake & Output 07/29/23 07/30/23 07/31/23 08/01/23 23:59 23:59 23:59 23:59 Intake Total 1400 840 360 530 Output Total 500 Balance 1400 340 360 530 Meds/Results Medications: Active Medications Generic Name Dose Route Start Last Admin Trade Name Freq PRN Reason Stop Dose Admin Acetaminophen 650 mg 07/26/23 07:43 Acetaminophen 325 Mg Tablet PO Q4H PRN Pain (Scale Score 1-3) Amlodipine Besylate 10 mg 07/30/23 11:00 08/01/23 08:38 Amlodipine Besylate 5 Mg Tablet PO 10 mg QAM CORNEL Administration Apixaban 5 mg 07/26/23 09:00 08/01/23 08:38 Apixab
--- NOTE | 2023-08-01 12:33 | P.PNNP_ITS ---
Progress Note: A&P Assessment and Plan (1) Hyponatremia: Code(s): E87.1 - Hypo-osmolality and hyponatremia Status: Acute Assessment and Plan: * improvement noted * acute on chronic * since February 2023, sodium running around 129 - 132mmol/L (134mmol/L at best) * noted sodium level of 120mmol/L on admission * several risk factors * known renal malignancy * HCTZ use * volume overload/CHF * history of CVAs * improvement noted with combination of diuretis + salt tabs + fluid restriction * evaluation to date: * TSH and cortisol okay * SPEP/UPEP pending * urine electrolytes non-prerenal * follow trend of repeat sodium levels (2) Acute hypoxemic respiratory failure: Code(s): J96.01 - Acute respiratory failure with hypoxia Status: Acute Assessment and Plan: * clinical improvemetn noted * presumably due to volume overload + CHF exacerbation + ANGÉLICA * follow respiratory status (3) CHF (congestive heart failure): Qualifiers: Heart failure chronicity: acute Heart failure type: diastolic Qualified Code(s): I50.31 - Acute diastolic (congestive) heart failure Code(s): I50.9 - Heart failure, unspecified Status: Acute Assessment and Plan: * Cardiology following * follow I/Os, daily weights, and clinical status * continue current management (4) Acute UTI: Code(s): N39.0 - Urinary tract infection, site not specified Status: Acute Assessment and Plan: * admission UA suggestive * on antibiotics * urine culture with E.coli (5) Essential hypertension: Code(s): I10 - Essential (primary) hypertension Status: Acute Assessment and Plan: * reasonable control * follow trend of hemodynamics (6) Dementia: Qualifiers: Dementia type: unspecified type Dementia behavioral or psychological symptom: without behavioral, psychotic, or mood disturbance or anxiety Dementia severity: unspecified severity Qualified Code(s): F03.90 - Unspecified dementia, unspecified severity, without behavioral disturbance, psychotic disturbance, mood disturbance, and anxiety Code(s): F03.90 - Unspecified dementia, unspecified severity, without behavioral disturbance, psychotic disturbance, mood disturbance, and anxiety Status: Chronic Assessment and Plan: * stable Not much else to add -- will continue to follow intermittently. Subjective Date/time seen: 08/01/23 12:33 Interval history: Follow-up for acute on chronic hyponatremia. No new issues or problems voiced at this time; overall, it seems the patient is doing better; sodium stable if not improving; no apparent distress; no other complaints to report. Exam Narrative: General: elderly but WD/WN female in NAD Heart: normal S1 and S2; no rub Lungs: clear anteriorly, decreased at bases Abdomen: soft, nontender, nondistended, positive bowel sounds Extremities: no cyanosis or clubbing; no edema Skin: no nodules Objective Data Vital Signs Vital Signs: Vital Signs Temp Pulse Resp BP Pulse Ox O2 Del Method 08/01/23 12:04 97.2 F L 96 18 116/52 L 96 08/01/23 08:35 Room Air 08/01/23 10:28 95 Room Air 08/01/23 08:40 70 08/01/23 04:20 98 F 75 16 150/62 H 95 07/31/23 19:27 98.4 F 66 14 112/55 L 96
[2023-08-01 14:04] VITALS: BP 116/52; PULSE 96; RESP 18; TEMP 36.2; O2SAT 96
--- NOTE | 2023-08-01 14:42 | PM.IMPN ---
Progress Note: A&P Assessment and Plan (1) Pulmonary hypertension: Code(s): I27.20 - Pulmonary hypertension, unspecified Status: Acute (2) Acute heart failure: Code(s): I50.9 - Heart failure, unspecified Status: Acute (3) Acute hypoxemic respiratory failure: Code(s): J96.01 - Acute respiratory failure with hypoxia Status: Acute (4) Acute UTI: Code(s): N39.0 - Urinary tract infection, site not specified Status: Acute (5) CHF (congestive heart failure): Qualifiers: Heart failure chronicity: acute Heart failure type: diastolic Qualified Code(s): I50.31 - Acute diastolic (congestive) heart failure Code(s): I50.9 - Heart failure, unspecified Status: Acute (6) Hyponatremia: Code(s): E87.1 - Hypo-osmolality and hyponatremia Status: Acute (7) Bradycardia: Code(s): R00.1 - Bradycardia, unspecified Status: Acute (8) Encounter for completion of form with patient: Code(s): Z02.89 - Encounter for other administrative examinations Status: Acute (9) Hyponatremia: Code(s): E87.1 - Hypo-osmolality and hyponatremia Status: Acute (10) Obstructive sleep apnea: Code(s): G47.33 - Obstructive sleep apnea (adult) (pediatric) Status: Acute (11) Type 2 diabetes mellitus with hyperglycemia: Code(s): E11.65 - Type 2 diabetes mellitus with hyperglycemia Status: Acute (12) Altered mental state: Code(s): R41.82 - Altered mental status, unspecified Status: Acute (13) Acute UTI: Code(s): N39.0 - Urinary tract infection, site not specified Status: Acute (14) Left lower lobe pulmonary infiltrate: Code(s): R91.8 - Other nonspecific abnormal finding of lung field Status: Acute (15) Acute hypokalemia: Code(s): E87.6 - Hypokalemia Status: Acute (16) Acute hyponatremia: Code(s): E87.1 - Hypo-osmolality and hyponatremia Status: Acute (17) Paroxysmal A-fib: Code(s): I48.0 - Paroxysmal atrial fibrillation Status: Acute (18) Uncontrolled hypertension: Code(s): I10 - Essential (primary) hypertension Status: Acute (19) Ambulatory dysfunction: Code(s): R26.2 - Difficulty in walking, not elsewhere classified Status: Acute (20) Yeast dermatitis: Code(s): B37.2 - Candidiasis of skin and nail Status: Acute (21) Multi-infarct dementia: Qualifiers: Dementia severity: moderate Dementia behavioral or psychological symptom: without behavioral, psychotic, or mood disturbance or anxiety Qualified Code(s): F01.B0 - Vascular dementia, moderate, without behavioral disturbance, psychotic disturbance, mood disturbance, and anxiety Code(s): F01.50 - Vascular dementia, unspecified severity, without behavioral disturbance, psychotic disturbance, mood disturbance, and anxiety Status: Acute (22) Renal cell carcinoma: Qualifiers: Laterality: unspecified laterality Qualified Code(s): C64.9 - Malignant neoplasm of unspecified kidney, except renal pelvis Code(s): C64.9 - Malignant neoplasm of unspecified kidney, except renal pelvis Status: Acute (23) Abnormal weight loss: Code(s): R63.4 - Abnormal weight loss Status: Acute (24) Shoulder pain, left: Code(s): M25.512 - Pain in left shoulder Status: Acute (25) Pre-operative clearance: Code(s): Z01.818 - Encounter for other preprocedural examination Status: Acute (26) History of diabetes mellitus: Code(s): Z86.39 - Personal history of other endocrine, nutritional and metabolic disease Status: Acute (27) Neuropathy: Code(s): G62.9 - Polyneuropathy, unspecified Status: Acute (28) Anemia: Qualifiers: Anemia type: unspecified type Qualified Code(s): D64.9 - Anemia, unspecified Code(s): D64.9 - Anemia, unspecified St
[2023-08-01 20:00] VITALS: PULSE 69; RESP 18; O2SAT 96
[2023-08-01 20:33] VITALS: BP 124/58; PULSE 69; RESP 18; TEMP 36.6; O2SAT 96
[2023-08-01] MEDS: ACETAMINOPHEN 325 MG TABLET 650 MG PO (20:36)
[2023-08-01] MEDS: MELATONIN 3 MG TABLET PO (20:36)
[2023-08-02] MEDS: CEPHALEXIN 500 MG CAPSULE PO (00:57)
[2023-08-02 05:10] VITALS: BP 111/48; PULSE 70; RESP 17; TEMP 36.3; O2SAT 99
[2023-08-02 06:14] LABS: Basophils Percent Auto 0.2 % (0.2-1.2); Eosinophils Absolute Auto 0.2 K/mm3 (0-0.3); Eosinophils Percent Auto 4.6 % (0-4.4); Hematocrit 28.7 % (37.0-47.0); Hemoglobin 9.3 g/dL (12.0-15.0); Immature Granulocyte Absolute 0.02 K/mm3 (0.00-0.031); Immature Granulocyte Percent A 0.4 % (0-0.5); Lymphocytes Absolute Auto 0.65 K/mm3 (0.9-3.2); Lymphocytes Percent Auto 13.5 % (18.3-44.2); Mean Corpuscular HGB Conc 32.4 g/dl (32-36); Mean Corpuscular Hemoglobin 31.3 pg (26-34); Mean Corpuscular Volume 96.6 fl (80-100); Mean Platelet Volume 8.4 fl (7.4-10.4); Monocytes Absolute Auto 0.3 K/mm3 (0.1-0.6); Monocytes Percent Auto 6.4 % (2.6-8.5); Neutrophils Absolute Auto 3.6 K/mm3 (1.3-6.7); Neutrophils Percent Auto 74.9 % (45.5-73.1); Platelet Count Result 195 k/mm3 (150-375); Red Blood Count 2.97 M/mm3 (4.2-5.4); Red Cell Distribution Width 15.4 % (11.5-14.5); White Blood Count 4.8 K/mm3 (4.5-10.0)
[2023-08-02 06:34] LABS: Anion Gap 4 mmol/L (8-16); Blood Urea Nitrogen 20 mg/dL (7-17); Calcium 8.5 mg/dL (8.4-10.2); Carbon Dioxide 36 mmol/L (22-30); Chloride 91 mmol/L (98-107); Estimated CRCL calculation 64 ml/min; Estimated Glomerular Filt Rate > 60; Glucose 98 mg/dL (65-110); Potassium 4.2 mmol/L (3.4-5.0); Sodium 131 mmol/L (137-145)
[2023-08-02] MEDS: FERROUS SULFATE 325 MG TABLET DR PO ×2 (08:47→16:54)
[2023-08-02] MEDS: TELMISARTAN 40 MG TABLET 80 MG PO (08:47)
[2023-08-02] MEDS: MAGNESIUM OXIDE 200 MG TABLET PO ×2 (08:47→20:15)
[2023-08-02] MEDS: ATORVASTATIN 40 MG TABLET PO (08:47)
[2023-08-02] MEDS: SODIUM CHLORIDE 1 GM TABLET PO ×2 (08:47→16:54)
[2023-08-02] MEDS: APIXABAN 5 MG TABLET PO ×2 (08:48→16:54)
[2023-08-02] MEDS: POTASSIUM CHLORIDE 20 MEQ PACKET (FOR LIQUID) 40 MEQ PO ×2 (08:48→16:54)
[2023-08-02] MEDS: MEMANTINE 10 MG TABLET PO ×2 (08:49→16:54)
[2023-08-02] MEDS: FUROSEMIDE 40 MG TABLET PO ×2 (08:49→16:54)
[2023-08-02] MEDS: CHOLECALCIFEROL 1,000 UNITS TABLET 1000 UNITS PO (08:49)
[2023-08-02 08:50] VITALS: RESP 18; O2SAT 99
[2023-08-02] MEDS: BRIMONIDINE TARTRATE 0.2% OP SOLN 5 ML BTL 1 DROP RIGHT EYE ×2 (08:50→20:15)
[2023-08-02] MEDS: DORZOLAMIDE/TIMOLOL OPHTH SOL 10 ML BOTTLE 1 DROP RIGHT EYE ×2 (08:50→20:15)
[2023-08-02 09:04] VITALS: BP 118/52; PULSE 70; RESP 18; O2SAT 99
--- NOTE | 2023-08-02 12:48 | PCNWS ---
Weekly nutritional screen. Patient is tolerating current diet with adequate intake, 50-95% on heart healthy diet. No weight loss reported. No nutritional needs at this time.
[2023-08-02 14:00] VITALS: BP 116/54; PULSE 64; RESP 17; TEMP 36.4; O2SAT 99
[2023-08-02] MEDS: ACETAMINOPHEN 325 MG TABLET 650 MG PO (15:20)
--- NOTE | 2023-08-02 17:31 | PM.IMPN ---
Progress Note: A&P Assessment and Plan (1) Pulmonary hypertension: Code(s): I27.20 - Pulmonary hypertension, unspecified Status: Acute (2) Acute heart failure: Code(s): I50.9 - Heart failure, unspecified Status: Acute (3) Acute hypoxemic respiratory failure: Code(s): J96.01 - Acute respiratory failure with hypoxia Status: Acute (4) Acute UTI: Code(s): N39.0 - Urinary tract infection, site not specified Status: Acute (5) CHF (congestive heart failure): Qualifiers: Heart failure chronicity: acute Heart failure type: diastolic Qualified Code(s): I50.31 - Acute diastolic (congestive) heart failure Code(s): I50.9 - Heart failure, unspecified Status: Acute (6) Hyponatremia: Code(s): E87.1 - Hypo-osmolality and hyponatremia Status: Acute (7) Bradycardia: Code(s): R00.1 - Bradycardia, unspecified Status: Acute (8) Encounter for completion of form with patient: Code(s): Z02.89 - Encounter for other administrative examinations Status: Acute (9) Obstructive sleep apnea: Code(s): G47.33 - Obstructive sleep apnea (adult) (pediatric) Status: Acute (10) Type 2 diabetes mellitus with hyperglycemia: Code(s): E11.65 - Type 2 diabetes mellitus with hyperglycemia Status: Acute (11) Altered mental state: Code(s): R41.82 - Altered mental status, unspecified Status: Acute (12) Left lower lobe pulmonary infiltrate: Code(s): R91.8 - Other nonspecific abnormal finding of lung field Status: Acute (13) Acute hypokalemia: Code(s): E87.6 - Hypokalemia Status: Acute (14) Acute hyponatremia: Code(s): E87.1 - Hypo-osmolality and hyponatremia Status: Acute (15) Paroxysmal A-fib: Code(s): I48.0 - Paroxysmal atrial fibrillation Status: Acute (16) Uncontrolled hypertension: Code(s): I10 - Essential (primary) hypertension Status: Acute (17) Ambulatory dysfunction: Code(s): R26.2 - Difficulty in walking, not elsewhere classified Status: Acute (18) Yeast dermatitis: Code(s): B37.2 - Candidiasis of skin and nail Status: Acute (19) Multi-infarct dementia: Qualifiers: Dementia severity: moderate Dementia behavioral or psychological symptom: without behavioral, psychotic, or mood disturbance or anxiety Qualified Code(s): F01.B0 - Vascular dementia, moderate, without behavioral disturbance, psychotic disturbance, mood disturbance, and anxiety Code(s): F01.50 - Vascular dementia, unspecified severity, without behavioral disturbance, psychotic disturbance, mood disturbance, and anxiety Status: Acute (20) Renal cell carcinoma: Qualifiers: Laterality: unspecified laterality Qualified Code(s): C64.9 - Malignant neoplasm of unspecified kidney, except renal pelvis Code(s): C64.9 - Malignant neoplasm of unspecified kidney, except renal pelvis Status: Acute (21) Abnormal weight loss: Code(s): R63.4 - Abnormal weight loss Status: Acute (22) Shoulder pain, left: Code(s): M25.512 - Pain in left shoulder Status: Acute (23) Pre-operative clearance: Code(s): Z01.818 - Encounter for other preprocedural examination Status: Acute (24) History of diabetes mellitus: Code(s): Z86.39 - Personal history of other endocrine, nutritional and metabolic disease Status: Acute (25) Neuropathy: Code(s): G62.9 - Polyneuropathy, unspecified Status: Acute (26) Anemia: Qualifiers: Anemia type: unspecified type Qualified Code(s): D64.9 - Anemia, unspecified Code(s): D64.9 - Anemia, unspecified Status: Acute (27) Essential hypertension: Code(s): I10 - Essential (primary) hypertension Status: Acute (28) Protein calorie malnutrition: Code(s): E46 - Unspecified protein-calorie
[2023-08-02 20:15] VITALS: BP 109/40; PULSE 68; RESP 17; TEMP 36.7; O2SAT 97
[2023-08-02] MEDS: MELATONIN 3 MG TABLET PO (20:15)
[2023-08-03 05:14] VITALS: BP 117/50; PULSE 68; RESP 17; TEMP 37.1; O2SAT 97
[2023-08-03 06:07] LABS: Basophils Percent Auto 0.4 % (0.2-1.2); Eosinophils Absolute Auto 0.2 K/mm3 (0-0.3); Eosinophils Percent Auto 3.8 % (0-4.4); Hemoglobin 8.9 g/dL (12.0-15.0); Immature Granulocyte Absolute 0.02 K/mm3 (0.00-0.031); Immature Granulocyte Percent A 0.4 % (0-0.5); Lymphocytes Absolute Auto 0.72 K/mm3 (0.9-3.2); Lymphocytes Percent Auto 15.2 % (18.3-44.2); Mean Corpuscular HGB Conc 31.8 g/dl (32-36); Mean Corpuscular Volume 97.6 fl (80-100); Mean Platelet Volume 8.3 fl (7.4-10.4); Monocytes Absolute Auto 0.3 K/mm3 (0.1-0.6); Monocytes Percent Auto 6.3 % (2.6-8.5); Neutrophils Absolute Auto 3.5 K/mm3 (1.3-6.7); Neutrophils Percent Auto 73.9 % (45.5-73.1); Platelet Count Result 186 k/mm3 (150-375); Red Blood Count 2.87 M/mm3 (4.2-5.4); Red Cell Distribution Width 15.3 % (11.5-14.5); White Blood Count 4.7 K/mm3 (4.5-10.0)
[2023-08-03 06:18] LABS: Anion Gap 5 mmol/L (8-16); Blood Urea Nitrogen 25 mg/dL (7-17); Calcium 8.4 mg/dL (8.4-10.2); Carbon Dioxide 35 mmol/L (22-30); Chloride 93 mmol/L (98-107); Estimated CRCL calculation 54 ml/min; Estimated Glomerular Filt Rate > 60; Glucose 91 mg/dL (65-110); Sodium 133 mmol/L (137-145)
[2023-08-03] MEDS: POTASSIUM CHLORIDE 20 MEQ PACKET (FOR LIQUID) 40 MEQ PO ×2 (08:17→18:01)
[2023-08-03] MEDS: DORZOLAMIDE/TIMOLOL OPHTH SOL 10 ML BOTTLE 1 DROP RIGHT EYE (08:17)
[2023-08-03] MEDS: BRIMONIDINE TARTRATE 0.2% OP SOLN 5 ML BTL 1 DROP RIGHT EYE (08:17)
[2023-08-03] MEDS: ATORVASTATIN 40 MG TABLET PO (08:18)
[2023-08-03] MEDS: MAGNESIUM OXIDE 200 MG TABLET PO (08:18)
[2023-08-03] MEDS: FUROSEMIDE 40 MG TABLET PO ×2 (08:18→18:01)
[2023-08-03] MEDS: amLODIPine BESYLATE 5 MG TABLET 10 MG PO (08:18)
[2023-08-03] MEDS: MEMANTINE 10 MG TABLET PO ×2 (08:18→18:01)
[2023-08-03] MEDS: APIXABAN 5 MG TABLET PO ×2 (08:18→18:01)
[2023-08-03] MEDS: CHOLECALCIFEROL 1,000 UNITS TABLET 1000 UNITS PO (08:18)
[2023-08-03] MEDS: SODIUM CHLORIDE 1 GM TABLET PO ×2 (08:18→18:01)
[2023-08-03] MEDS: TELMISARTAN 40 MG TABLET 80 MG PO (08:18)
[2023-08-03] MEDS: FERROUS SULFATE 325 MG TABLET DR PO ×2 (08:18→18:01)
[2023-08-03 08:19] VITALS: PULSE 73
[2023-08-03] MEDS: METOPROLOL SUCCINATE EXT REL 12.5 MG TABCR PO (08:19)
[2023-08-03 14:00] VITALS: BP 118/50; PULSE 64; RESP 20; TEMP 36.8; O2SAT 94
--- NOTE | 2023-08-03 15:48 | PM.DS ---
DS: Admitting Diagnosis Discharge Date 08/03/2023: Admitting Diagnosis Acute respiratory failure with hypoxemia and hypercapnia UTI DS: Discharge Diagnosis Discharge Diagnosis (1) Pulmonary hypertension: Code(s): I27.20 - Pulmonary hypertension, unspecified Status: Acute (2) Acute heart failure: Code(s): I50.9 - Heart failure, unspecified Status: Acute (3) Acute hypoxemic respiratory failure: Code(s): J96.01 - Acute respiratory failure with hypoxia Status: Acute (4) Acute UTI: Code(s): N39.0 - Urinary tract infection, site not specified Status: Acute (5) CHF (congestive heart failure): Qualifiers: Heart failure chronicity: acute Heart failure type: diastolic Qualified Code(s): I50.31 - Acute diastolic (congestive) heart failure Code(s): I50.9 - Heart failure, unspecified Status: Acute (6) Hyponatremia: Code(s): E87.1 - Hypo-osmolality and hyponatremia Status: Acute (7) Obstructive sleep apnea: Code(s): G47.33 - Obstructive sleep apnea (adult) (pediatric) Status: Acute (8) Type 2 diabetes mellitus with hyperglycemia: Code(s): E11.65 - Type 2 diabetes mellitus with hyperglycemia Status: Acute (9) Altered mental state: Code(s): R41.82 - Altered mental status, unspecified Status: Acute (10) Paroxysmal A-fib: Code(s): I48.0 - Paroxysmal atrial fibrillation Status: Acute (11) Uncontrolled hypertension: Code(s): I10 - Essential (primary) hypertension Status: Acute (12) Ambulatory dysfunction: Code(s): R26.2 - Difficulty in walking, not elsewhere classified Status: Acute (13) Neuropathy: Code(s): G62.9 - Polyneuropathy, unspecified Status: Acute (14) Anemia: Qualifiers: Anemia type: unspecified type Qualified Code(s): D64.9 - Anemia, unspecified Code(s): D64.9 - Anemia, unspecified Status: Acute (15) Essential hypertension: Code(s): I10 - Essential (primary) hypertension Status: Acute (16) Dementia: Qualifiers: Dementia type: unspecified type Dementia behavioral or psychological symptom: without behavioral, psychotic, or mood disturbance or anxiety Dementia severity: unspecified severity Qualified Code(s): F03.90 - Unspecified dementia, unspecified severity, without behavioral disturbance, psychotic disturbance, mood disturbance, and anxiety Code(s): F03.90 - Unspecified dementia, unspecified severity, without behavioral disturbance, psychotic disturbance, mood disturbance, and anxiety Status: Acute (17) Hypothyroidism: Qualifiers: Hypothyroidism type: unspecified Qualified Code(s): E03.9 - Hypothyroidism, unspecified Code(s): E03.9 - Hypothyroidism, unspecified Status: Acute DS: Summary Hospital Course Reason for hospitalization: Patient admitted with shortness of breath and altered mental status Hospital Course: H&P: HPI History of Present Illness Date/Time: 07/26/23? 07:28 Chief Complaint: Short of breath Narrative: patient is 83-year-old female with history of AFib, on Eliquis, ANGÉLICA, renal cell carcinoma, chronic anemia, chronic hyponatremia, CVA, diabetes, hypertension, dementia brought to ED from care home because of shortness of breath and hypoxia.? Patient was found have general weakness, and less active.? her oxygen levels were reading in the 80s. patient was started on oxygen at the nursing facility and transported to the emergency department.? Patient denies chest pain, no obvious shortness breath.? Patient also denies fever, abdomen pain, nausea vomiting diarrhea.? In the ED, patient was found have, hyponatremia? sodium of 120 BNP was moderately elevated at 3660, ABG shows hypoxemia hypercapnic respiratory failure, hemoglobin 8.6, close to baseline, urinalysis showed greater than 100 white blood cells. ? CTA chest showed e
[2023-08-03 16:19] LABS: SARS-CoV-2 RNA PCR Negative (Negative)
[2023-08-06 09:36] LABS: Albumin 2.7; Alpha 1 Globulin 0.5; Alpha 2 Globulin 0.7; Beta 1 Globulin 0.4; Gamma Globulin 0.9
[2023-08-06 09:38] LABS: Protein, Total 5.4
[2023-08-06 15:38] LABS: Creatinine, Random Urine 19 mg/dL (20-275); Total Protein/Creatinine Ratio 263 mg/g creat (24-184)
[2023-08-07 14:12] LABS: Kappa\\Lambda Light Chains 1.97
== END 2023-08-03 19:30 | DRG 291 ==
LOC: ANHED 06:00 → ANH2MED 06:39
PROVIDERS: Family Medicine; Internal Medicine Cardiovascular Disease; Internal Medicine Nephrology; Admitting Provider Internal Medicine; Emergency Provider Emergency Medicine; PCP Family Medicine; Visit Provider Family Medicine
DX: I11.0 Hypertensive heart disease with heart failure (principal); I50.33 Acute on chronic diastolic (congestive) heart failure; J96.01 Acute respiratory failure with hypoxia; J96.02 Acute respiratory failure with hypercapnia; N39.0 Urinary tract infection, site not specified; E87.1 Hypo-osmolality and hyponatremia; E46 Unspecified protein-calorie malnutrition; I48.20 Chronic atrial fibrillation, unspecified; T50.2X5A Adverse effect of carbonic-anhydrase inhibitors, benzothiadiazides and other diuretics, initial encounter; B96.20 Unspecified Escherichia coli [E. coli] as the cause of diseases classified elsewhere; Z20.822 Contact with and (suspected) exposure to COVID-19; G47.33 Obstructive sleep apnea (adult) (pediatric); I27.20 Pulmonary hypertension, unspecified; E87.6 Hypokalemia; E11.42 Type 2 diabetes mellitus with diabetic polyneuropathy; D50.9 Iron deficiency anemia, unspecified; R00.1 Bradycardia, unspecified; F01.50 Vascular dementia, unspecified severity, without behavioral disturbance, psychotic disturbance, mood disturbance, and anxiety; B37.2 Candidiasis of skin and nail; R41.3 Other amnesia; E03.9 Hypothyroidism, unspecified; Z66 Do not resuscitate; Z96.653 Presence of artificial knee joint, bilateral; Z90.710 Acquired absence of both cervix and uterus; Z68.25 Body mass index [BMI] 25.0-25.9, adult; Z86.73 Personal history of transient ischemic attack (TIA), and cerebral infarction without residual deficits; Z85.53 Personal history of malignant neoplasm of renal pelvis; Z79.01 Long term (current) use of anticoagulants
CPT/HCPCS: 36415; 36600; 71045; 71275; 80048; 80053; 80069; 81001; 81050; 82533; 82570; 82805; 83605; 83735; 83880; 83883; 84145; 84155; 84156; 84165; 84166; 84295; 84443; 84484; 84540; 85025; 85610; 85730; 87077; 87086; 87088; 87186; 87635; 87637; 93005; 93306; 96374; 97110; 97161; 97162; 97164; 97166; 99285; A9270; J0696; J1940; J3475; Q9967

== ENCOUNTER 2023-09-18 19:07 | Inpatient (IN) | payer MEDICARE, SELFPAY ==
[2023-09-18] VITALS (14 sets, daily range): BP systolic 94–100; BP diastolic 45–80; PULSE 60–100; RESP 13–22; TEMP 36.4–38.6; O2SAT 95–100; BMI 21.5
--- NOTE | ~2023-09-18 | US_ITS ---
EXAMINATION: US thoracentesis DATE: 09/24/2023 15:22 INDICATION: pleural effusion TECHNIQUE: The procedure and its risks and benefits were discussed with the patient. Potential risks discussed included bleeding, infection, and pneumothorax. The patient understood the risks and agreed to proceed. The skin was prepped and draped in sterile fashion. 1% lidocaine was used for local anes thesia. Under ultrasound guidance, a 5 Fr catheter with trochar was advanced into the left pleural ef fusion. Fluid was aspirated. The catheter was removed, and a dressing was applied. There were no imme diate complications. FINDINGS: Ultrasound images demonstrate a moderate-sized left pleural effusion and the catheter within the flui d. IMPRESSION: 1. Successful ultrasound-guided thoracentesis yielding 1000 mL of afshan-colored fluid. Reviewed, dictated and finalized at location A. INER OPERATOR HELPER IMPRESSION: 1. Successful ultrasound-guided thoracentesis yielding 1000 mL of afshan-colore d fluid.
--- NOTE | ~2023-09-18 | XR_ITS ---
[id number] 09/24/2023 15:07 Indication: Postthoracentesis Procedure: AP and lateral views of the chest Comparison: 09/23/2023 Findings: No pneumothorax identified post thoracentesis. Left pleural effusion. Bibasilar airspace di sease is present. Stable cardiomegaly. Impression: 1: Bibasilar airspace disease may represent atelectasis, edema and/or pneumonia. 2: Small left pleural effusion. No pneumothorax identified post procedure. Reviewed, dictated and finalized at location B. S SALESMAN Impression: 1: Bibasilar airspace disease may represent atelectasis, edema and/or pneumonia . 2: Small left pleural effusion. No pneumothorax identified post procedure.
--- NOTE | ~2023-09-18 | XR_ITS ---
EXAMINATION: XR chest 2V Exam Date/Time: 09/25/2023 17:56 HEALTH CARE MARKETING MANAGER HISTORY: pleural effusion Comparison: 09/25/2023 at 7:34 AM. FINDINGS/IMPRESSION: Unchanged interstitial edema, small left pleural effusion, and bibasilar atelectasis/consolidation. Reviewed, dictated and finalized at location K. TH CARE MARKETING MANAGER
--- NOTE | ~2023-09-18 | XR_ITS ---
EXAMINATION: XR chest 1V portable Exam Date/Time: 09/18/2023 20:11 SURVEILLANCE DUAL RATE OFFICER HISTORY: fever, weakness Comparison: 07/28/2023. RESULT: Lines, tubes, and devices: None. Lungs and pleura: Hazy airspace disease in the upper and mid left lung with more dense opacity in th e left lung base. Mild left costophrenic angle blunting. Cardiomediastinal silhouette: Stable. Other: No acute osseous or upper abdominal finding. IMPRESSION: Patchy areas of left upper and mid lung airspace disease with dense consolidation in the left lung ba se, concerning for pneumonia. Small left pleural effusion. Reviewed, dictated and finalized at location K. EILLANCE DUAL RATE OFFICER IMPRESSION: Patchy areas of left upper and mid lung airspace disease with dense consolidati on in the left lung base, concerning for pneumonia. Small left pleural effusion .
--- NOTE | ~2023-09-18 | XR_ITS ---
EXAMINATION: XR chest 2V Exam Date/Time: 09/26/2023 17:00 QUIRK SANDER HISTORY: pleural effusion Comparison: None. RESULT: Lines, tubes, and devices: None. Lungs and pleura: Unchanged bibasilar airspace disease, greater on the left. Unchanged left costophr enic angle blunting. Slightly decreased diffuse reticular opacities. Cardiomediastinal silhouette: Stable. Other: No acute osseous or upper abdominal finding. IMPRESSION: Slightly improved interstitial edema. Stable bibasilar atelectasis/consolidation and small left effus ion. Reviewed, dictated and finalized at location K. K SANDER IMPRESSION: Slightly improved interstitial edema. Stable bibasilar atelectasis/consolidatio n and small left effusion.
--- NOTE | ~2023-09-18 | CT_ITS ---
EXAMINATION: CTA chest PE abdomen pel DATE: 09/19/2023 14:38 INDICATION: Sepsis, elevated D-dimer, hypoxia TECHNIQUE: Computed tomography angiography (CTA) of the chest was performed with 100 mL Omnipaque-350 intravenous contrast timed to evaluate the pulmonary arteries, followed by portal venous phase imagi ng of the abdomen and pelvis. Coronal maximum intensity projection 3D-reconstructions were created by the technologist. The dose-length product (DLP) was 1385.78 mGy-cm. Automated exposure control and i terative reconstruction technique were employed. COMPARISON: CTPA 07/26/2023; CT abdomen 10/05/2022; CT abdomen pelvis 05/10/2020. FINDINGS: CHEST: Lung parenchyma and airways: Patchy groundglass and centrilobular nodular opacities. Minimal cavitati on in a small focal area of right upper lobe consolidation. Mild septal and fissural thickening. Left lower lobe atelectasis. Subsegmental left upper lobe atelectasis. Clear airways. Pleura: Large left and small right pleural effusions. Thoracic inlet, axillae and chest wall: Unremarkable. Thoracic aorta: Moderate arch calcification, no dilation or dissection. Mediastinum: Dilated central pulmonary arteries as can be seen with pulmonary arterial hypertension. Heart and pericardium: Cardiomegaly. Mild aortic and mitral calcification. Chronic small pericardial effusion. Coronary artery calcifications: Mild. Thoracic bones: No acute osseous finding. Pulmonary arteries: Study quality: Adequate. No pulmonary emboli detected. ABDOMEN/PELVIS: Liver: Normal. Biliary/Gallbladder: Cholelithiasis. No bile duct dilation. Pancreas: Atrophy. Spleen: Wedge-shaped hypoenhancement in the inferior spleen. Multiple focal hypodensities scattered t hroughout the spleen, stable, likely cysts or hemangiomas. Adrenals:No mass. Kidneys: Patchy enhancement and scarring in the left kidney. 3.3 cm heterogeneously enhancing right u pper pole lesion. 3 cm indeterminate density right midpole lesion. Subcentimeter left upper pole hypo density, too small to characterize. GI tract: No small bowel dilation. Uncomplicated duodenal diverticulum. The rectum is dilated to 6.7 cm by formed stool, with mild wall thickening and surrounding inflammatory change. Appendix not confi dently visualized. Diverticulosis without diverticulitis. Mesentery/Peritoneum: No ascites, mass, or free air. Retroperitoneum: No mass. Atherosclerotic abdominal aortic and/or arterial calcifications. Pelvis: Mild bladder wall thickening in an adequately distended urinary bladder. Soft Tissues: Uncomplicated appearing supraumbilical fat-containing ventral hernia. Small right upper quadrant fat-containing ventral hernia which no longer contains herniated bowel. Mild body wall holly a. Abdominopelvic bones: No acute osseous finding. IMPRESSION: No CT evidence of acute pulmonary embolus. Right middle and upper lobe centrilobular nodular consolidations with suggestion of early cavitation as can be seen with septic emboli, necrotic pneumonia, and neoplastic disease. Moderate pulmonary edema. Large left and small right pleural effusions. Likely left lower lobe and reaves bsegmental left upper lobe passive atelectasis, consolidation of pneumonia is not excluded. Wedge-shaped hypodensity in the spleen, possible splenic infarct. Patchy left renal enhancement may reflect pyelonephritis in the appropriate clinical context. Enhancing right upper pole renal mass concerning for renal cell carcinoma. Indeterminate density righ t midpole lesion, may represent hemorrhagic or proteinaceous cyst or an additional focus of carcinoma . Fecal impaction with findings concerning for early stercoral colitis. Possible cystitis, correlate with urinalysis. Reviewed, dictated and finalized at location K. ANCE EDUCATION COORDINATOR
--- NOTE | ~2023-09-18 | XR_ITS ---
XR chest 2V 09/23/2023 08:42 Indication: Pneumonia Procedure: 2 view chest Comparison: Comparison to multiple prior studies sequentially, with oldest reviewed study dated 03/21. Findings: Cardiomegaly. Moderate left and small right pleural effusions. Left-sided airspace disease may represent pneumonia and/or atelectasis. Cardiomegaly. No pneumothorax. Advanced degenerative hale ge of the left glenohumeral joint. Impression: 1: Moderate left pleural effusion. 2: Left basilar airspace disease may represent pneumonia and/or atelectasis. 3: Cardiomegaly. Reviewed, dictated and finalized at location L. ST WORKER Impression: 1: Moderate left pleural effusion. 2: Left basilar airspace disease may represent pneumonia and/or atelectasis. 3: Cardiomegaly.
--- NOTE | ~2023-09-18 | US_ITS ---
EXAMINATION:US venous doppler LE BI INDICATION:Elevated d-dimer TECHNIQUE: Multiple grayscale, color flow and Doppler images of the right and left lower extremity de ep venous systems were obtained and reviewed. COMPARISON:No prior studies for comparison. FINDINGS: The common femoral, superficial femoral and popliteal veins demonstrate normal respiratory variation, augmentation and compressibility. Color flow is also seen within the posterior tibial, pe roneal, greater saphenous and profunda veins. IMPRESSION: 1: No lower extremity deep venous thrombosis. Reviewed, dictated and finalized at location B. ATTENDANT
--- NOTE | ~2023-09-18 | XR_ITS ---
XR chest 1V portable 09/25/2023 07:45 Indication: Pleural effusion. Low oxygen saturation postthoracentesis. Procedure: AP portable chest Comparison: Comparison to multiple prior studies sequentially, with oldest reviewed study dated 07/01. Findings: Cardiomegaly. Interstitial edema. Small left pleural effusion. No pneumothorax. No acute os seous abnormality. Impression: 1: Cardiomegaly with interstitial edema. 2: Small left pleural effusion with compressive atelectasis. Reviewed, dictated and finalized at location A. NG PRESSER Impression: 1: Cardiomegaly with interstitial edema. 2: Small left pleural effusion with compressive atelectasis.
--- NOTE | ~2023-09-18 | XR_ITS ---
Portable chest x-ray Comparison: 09/23/2023 Clinical History: Left effusion Findings: Moderate to large left pleural effusion is present. Probable minimal right pleural effusio n. Cardiomediastinal silhouette is stable. Bones and soft tissues are unremarkable. Impression: Moderate to large left pleural effusion. Probable minimal right pleural effusion. Reviewed, dictated and finalized at [facility]. 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 Probable minimal right pleural effusion.
--- NOTE | 2023-09-18 19:20 | ECG_ITS ---
Measurements Intervals [place] Rate: 87 P: [place]: 0 QRS: -61 QRSD: 149 T: 106 QT: 399 QTc: 481 Interpretive Statements ATRIAL FIBRILLATION LEFT AXIS DEVIATION LEFT BUNDLE BRANCH BLOCK BASELINE ARTIFACT- V1-V2 ABNORMAL ECG COMPARED TO ECG 07/26/2023 03:33:34 NO SIGNIFICANT CHANGES Electronically Signed On 09-19-2023 7:56:07 REGIONAL RETAIL SALES MANAGER by Cade Velazquez D.O.
[2023-09-18] MEDS: SODIUM CHLORIDE 0.9% IV 1,000 ML 999 ML IV CONT ×2 (19:36→20:29)
[2023-09-18 19:45] LABS: Hematocrit 26.7 % (37.0-47.0); Hemoglobin 8.4 g/dL (12.0-15.0); Mean Corpuscular HGB Conc 31.5 g/dl (32-36); Mean Corpuscular Volume 98.5 fl (80-100); Mean Platelet Volume 8.9 fl (7.4-10.4); Platelet Count Result 156 k/mm3 (150-375); Red Blood Count 2.71 M/mm3 (4.2-5.4); Red Cell Distribution Width 16.5 % (11.5-14.5); White Blood Count 6.9 K/mm3 (4.5-10.0)
[2023-09-18 19:57] LABS: Lactic Acid Reflex 1.3 mmol/L (0.7-2.0); Magnesium 1.9 mg/dL (1.6-2.3)
[2023-09-18 19:59] LABS: INR 4.3; Partial Thromboplastin Time 69.9 SECONDS (22.3-36.8); Prothrombin Time 44.9 Seconds (11.1-14.7)
--- NOTE | 2023-09-18 20:09 | ED.GENADULT ---
HPI - General Adult General Chief complaint: Fever Stated complaint: fever Time Seen by Provider: 09/18/23 19:12 History of Present Illness HPI narrative: patient is a 83-year-old female who presents emergency department with chief complaint of fever. Patient is resident of local nursing facility and they noticed that she has been weaker than normal and noticed that she had a fever. Patient was given Tylenol and vomited up the Tylenol and was sent to the emergency department. The patient denies any complaints at this time Related Data Home Medications Medication Instructions Recorded Confirmed telmisartan 40 mg tablet 80 mg PO DAILY 10/25/19 07/26/23 ferrous sulfate 325 mg (65 mg 325 mg PO BID 06/13/20 07/26/23 iron) tablet (iron) apixaban 5 mg tablet (Eliquis) 5 mg PO BID 07/29/20 07/26/23 cholecalciferol (vitamin D3) 25 25 mcg PO DAILY 12/16/20 07/26/23 mcg (1,000 unit) tablet (Vitamin D3) brimonidine 0.2 % eye drops 1 drp RIGHT EYE BID 09/14/22 07/26/23 dorzolamide 22.3 mg-timolol 6.8 1 drp RIGHT EYE BID 09/14/22 07/26/23 mg/mL eye drops diclofenac sodium 1 % topical gel 2 g topical QID PRN arthritis pain 03/21/23 07/26/23 lutein 25 mg-zeaxanthin 5 mg 1 cap PO DAILY 05/07/23 07/26/23 capsule (Ocuvite Lutein) memantine 10 mg tablet 10 mg PO BID 05/07/23 07/26/23 acetaminophen 325 mg tablet 650 mg PO Q4H PRN Pain (Scale 07/26/23 07/26/23 (Tylenol) Score 1-3) melatonin 1 mg tablet 1 mg PO HS PRN Insomnia 07/26/23 07/26/23 Allergies Allergy/AdvReac Type Severity Reaction Status Date / Time simvastatin Allergy Unknown Unknown Verified 07/26/23 03:33 MEPERIDINE HCL AdvReac Severe MADE Uncoded 05/11/23 09:33 PATIENT VERY MEAN DURING LABOR Review of Systems Review of Systems: A 10 system review of systems was completed on the patient and is negative except for what is stated in the HPI. Nursing and ancillary documentation was reviewed. PMFSH Past Medical History Medical History Afib Body mass index (BMI) greater than 40 (09/19/15) Diabetic peripheral neuropathy Essential (primary) hypertension Helicobacter positive gastritis History of CVA (cerebrovascular accident) Microcytic anemia Multi-infarct dementia Obstructive sleep apnea Renal cell carcinoma Renal mass Stroke Type 2 diabetes mellitus with hyperglycemia Surgical History Surgical History H/O inguinal hernia repair H/O: hysterectomy History of arthroplasty of both knees History of cataract surgery both eyes, did not work in right eye Family History Family History Sibling Family history of thyroid disease Cerebrovascular accident Social History Social History Social History: She typically lives with her but is currently at [facility] for rehab. They have one son. 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 She is a lifelong nonsmoker. Code status DNR Smoking status: Never smoker Second hand tobacco smoke exposure: No Alcohol intake: never Substance use: never Lack of Transportation: No Lack of Food: Never True Current Housing: I Have Housing Concerned About Future Housing: No Difficulty Paying Gas/Electric Bills: No Difficulty Paying for Meds: No Currently Unemployed: No Education: High School Diploma/GED Difficulty w/ Childcare or Family Care: No Living arrangements: with family Gender identity (if verbalized by the patient): Male Spiritual care concerns: No Exam Narrative: GENERAL: Well-appearing, well-nourished, and in no acute distress. HEAD: Normocephalic, atraumatic. EYES: PERRLA and EOMI. ENT: Nares clear, no rhinorrhea or epistaxis. Mucous membranes moist. N
[2023-09-18 20:10] LABS: Troponin I 0.023 ng/mL (0.000-0.034)
[2023-09-18 20:14] LABS: Alanine Aminotransferase 14 U/L (6-35); Alkaline Phosphatase 98 U/L (38-126); Anion Gap 5 mmol/L (8-16); Aspartate Amino Transferase 25 U/L (14-36); Band Neutrophils Percent 9 % (0-6); Bilirubin,Total 1.4 mg/dL (0.2-1.3); Blood Urea Nitrogen 31 mg/dL (7-17); Calcium 7.9 mg/dL (8.4-10.2); Carbon Dioxide 31 mmol/L (22-30); Chloride 95 mmol/L (98-107); Estimated CRCL calculation 30 ml/min; Estimated Glomerular Filt Rate 43; Glucose 175 mg/dL (65-110); Hypochromasia 1+ (NORMAL); Lymphocytes Absolute Manual 0.34 K/mm3 (1.1-4.5); Monocytes Absolute Manual 0.62 K/mm3 (0.1-0.90); Monocytes Percent Manual 9 % (3-9); Neutrophils Absolute Manual 5.93 K/mm3 (1.7-7.2); Neutrophils Percent Manual 77 % (46-73); Platelet Estimate Adequate (Adequate); Potassium 4.9 mmol/L (3.4-5.0); Schistocytes None Seen (NORMAL); Sodium 131 mmol/L (137-145); Total Cells Counted 100
[2023-09-18 20:15] LABS: Anisocytosis 2+ (NORMAL)
[2023-09-18 20:21] LABS: Influenza A QL RT-PCR Negative (Negative); Influenza B QL RT-PCR Negative (Negative); RSV RNA, RT-PCR Negative (Negative); SARS-CoV-2 RNA PCR Negative (Negative)
[2023-09-18 20:41] LABS: Procalcitonin 2.8 ng/mL
[2023-09-18 21:09] LABS: Appearance Urine Turbid (Clear); Bacteria Urine 4+ /hpf; Bilirubin Urine Negative (Negative); Blood Urine 3+ (Negative); Color Urine Dark Yellow (Yellow); Glucose Urine UA Negative (Negative); Ketones Urine Negative (Negative); Leukocyte Esterase Ur 3+ LEU/UL (Negative); Need Manual Microscopic Reviewed; Nitrate Urine Negative (Negative); Non Pathogenic Casts >20; Protein Urine 2+ mg/dL (Negative); RBC Urine 0-2 /hpf (0-2); Specific Grav Ur 1.015 (1.001-1.035); Squamous Epithelial Cell Urine Many /hpf (Few); WBC Urine >100 /hpf
[2023-09-18 21:10] LABS: Add Urine Microscopic? YES
[2023-09-18] MEDS: AZITHROMYCIN 500 MG/NS 250 ML 500 MG/250 ML BAG 250 MG IVPB (21:40)
--- NOTE | 2023-09-18 22:03 | PM.IMHP ---
H&P: HPI History of Present Illness Date/Time: 09/18/23 22:03 Chief Complaint: Sent in from facility due to fever Narrative: 83-year-old female with past medical history of atrial fibrillation, diabetes mellitus with multiple complications, CVA, essential hypertension, CVA and obstructive sleep apnea who presented to the ER from [facility] via EMS due to fever and lethargy. While in the ER patient spiked T max of 101.4. The patient was only oriented to self. She denied any specific complaints. She has chronic urinary incontinence. She did report that she feels cold and has been shaking. UA was consistent with UTI. Patient was noted to have significant bandemia within normal white count. She is on chronic anticoagulation with Eliquis and her INR was elevated to 4. She was anemic with a hemoglobin that was stable. Further review of systems was unobtainable. The entirety of HPI was essentially obtained from ER report and review of past medical records. Review of external med history as well. Review of Systems Review of Systems: ROS unobtainable: Yes unobtainable due to mental status [facility] Past Medical History Medical History (Updated 09/19/23 @ 21:56 by Elizabeth Zendejas DO) Afib Body mass index (BMI) greater than 40 (09/19/15) Patient BMI is now 21 (August 2023) CHF (congestive heart failure) Diabetic peripheral neuropathy Essential (primary) hypertension Helicobacter positive gastritis History of CVA (cerebrovascular accident) Microcytic anemia Multi-infarct dementia Obstructive sleep apnea Pulmonary hypertension Renal cell carcinoma Stroke Type 2 diabetes mellitus with hyperglycemia Surgical History Surgical History H/O inguinal hernia repair H/O: hysterectomy History of arthroplasty of both knees History of cataract surgery both eyes, did not work in right eye Family History Family History Sibling Family history of thyroid disease Cerebrovascular accident Social History Social History Social History: She typically lives with her but is currently at [facility] for rehab. They have one son. 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 She is a lifelong nonsmoker. Code status DNR Smoking status: Never smoker Second hand tobacco smoke exposure: No Alcohol intake: never Substance use: never Do You Feel Safe in your Home?: Yes Lack of Transportation: No Lack of Food: Never True Current Housing: I Have Housing Concerned About Future Housing: No Difficulty Paying Gas/Electric Bills: No Difficulty Paying for Meds: No Currently Unemployed: No Education: Grade School Difficulty w/ Childcare or Family Care: No Living arrangements: with family Gender identity (if verbalized by the patient): Male Spiritual care concerns: No Meds Home Medications and Allergies Home Medications Medication Instructions Recorded Confirmed Type telmisartan 40 mg tablet 80 mg PO DAILY 10/25/19 09/18/23 History ferrous sulfate 325 mg (65 mg 325 mg PO BID 06/13/20 09/18/23 History iron) tablet (iron) apixaban 5 mg tablet (Eliquis) 5 mg PO BID 07/29/20 09/18/23 History cholecalciferol (vitamin D3) 25 25 mcg PO DAILY 12/16/20 09/18/23 History mcg (1,000 unit) tablet (Vitamin D3) brimonidine 0.2 % eye drops 1 drp RIGHT EYE BID 09/14/22 09/18/23 History dorzolamide 22.3 mg-timolol 6.8 1 drp RIGHT EYE BID 09/14/22 09/18/23 History mg/mL eye drops amlodipine 5 mg tablet (Norvasc) 10 mg PO QAM #30 tabs 03/08/23 09/18/23 Rx diclofenac sodium 1 % topical gel 2 g topical QID PRN arthritis pain 03/21/23 09/18/23 History lutein 25 mg-zeaxanthin 5 mg 1 cap PO DAILY 05/07/23 09/18/23 History capsule (Ocuvite Lutein) memantine 10 mg tablet 10 mg PO BID 05/07/23
[2023-09-18 22:22] LABS: Fibrinogen 649 mg/dl (215-510)
--- NOTE | 2023-09-18 22:28 | ECG_ITS ---
Measurements Intervals [place] Rate: 62 P: [place]: 0 QRS: -64 QRSD: 162 T: 98 QT: 480 QTc: 490 Interpretive Statements ATRIAL FIBRILLATION LEFT AXIS DEVIATION LEFT BUNDLE BRANCH BLOCK ABNORMAL ECG COMPARED TO ECG 09/18/2023 19:33:19 NO SIGNIFICANT CHANGES Electronically Signed On 09-19-2023 8:01:05 PATIENT REPRESENTATIVE by Cade Velazquez D.O.
--- NOTE | 2023-09-18 22:31 | PC.NURSE ---
2145 Anh from ID calls to get update on patient. This RN informed her that the patient will be admitted.
[2023-09-18 23:02] LABS: Troponin I 0.044 ng/mL (0.000-0.034)
--- NOTE | 2023-09-18 23:07 | ADMGEN ---
This patient, Rachell Power, was admitted to [facility] Surg Room 329-01. Patient/family oriented to hospital policies and general routines including ID bracelet, bed and alarms, visiting hours, pain management, procedures, bathroom and other care routines, personal items, smoking policy, room service/diet, and visiting hours. Information on how to activate the Rapid Response Team has been discussed. Patient/Family are encouraged to report perceived risks to care and to ask questions if they do not understand what they are told or what they should do.
[2023-09-18] MEDS: SODIUM CHLORIDE 0.9% IV 1,000 ML 125 ML IV CONT (23:30)
[2023-09-19] VITALS (15 sets, daily range): BP systolic 101–150; BP diastolic 40–72; PULSE 59–149; RESP 16–24; TEMP 36.5–37.1; O2SAT 93–100
[2023-09-19 04:37] LABS: Glucose Point of Care 119 mg/dl (65-105)
[2023-09-19] MEDS: METOPROLOL TARTRATE INJ 5 MG/5 ML VIAL IV PUSH (04:40)
[2023-09-19] MEDS: DOXYCYCLINE 100 MG/NS 100 ML 100 MG/100 ML BAG IVPB ×2 (05:18→16:41)
[2023-09-19 06:12] LABS: Prothrombin Time 42.3 Seconds (11.1-14.7)
[2023-09-19 06:13] LABS: Partial Thromboplastin Time 57.8 SECONDS (22.3-36.8)
[2023-09-19 06:17] LABS: D Dimer 2.23 ug/mL (<0.48)
[2023-09-19] MEDS: METOPROLOL SUCCINATE EXT REL 25 MG TABCR PO (07:25)
[2023-09-19] MEDS: amLODIPine BESYLATE 5 MG TABLET 10 MG PO (07:25)
[2023-09-19 07:57] LABS: Basophils Percent Auto 0.2 % (0.2-1.2); Hematocrit 26.6 % (37.0-47.0); Hemoglobin 8.1 g/dL (12.0-15.0); Immature Granulocyte Absolute 0.01 K/mm3 (0.00-0.031); Immature Granulocyte Percent A 0.2 % (0-0.5); Lymphocytes Percent Auto 2.3 % (18.3-44.2); Mean Corpuscular HGB Conc 30.5 g/dl (32-36); Mean Corpuscular Hemoglobin 30.6 pg (26-34); Mean Corpuscular Volume 100.4 fl (80-100); Mean Platelet Volume 9.4 fl (7.4-10.4); Monocytes Absolute Auto 0.2 K/mm3 (0.1-0.6); Monocytes Percent Auto 4.9 % (2.6-8.5); Neutrophils Absolute Auto 3.9 K/mm3 (1.3-6.7); Neutrophils Percent Auto 92.4 % (45.5-73.1); Platelet Count Result 153 k/mm3 (150-375); Red Blood Count 2.65 M/mm3 (4.2-5.4); Red Cell Distribution Width 16.5 % (11.5-14.5); White Blood Count 4.3 K/mm3 (4.5-10.0)
[2023-09-19 08:03] LABS: Anion Gap 7 mmol/L (8-16); Blood Urea Nitrogen 29 mg/dL (7-17); Calcium 7.7 mg/dL (8.4-10.2); Carbon Dioxide 27 mmol/L (22-30); Chloride 102 mmol/L (98-107); Estimated CRCL calculation 37 ml/min; Estimated Glomerular Filt Rate 60; Glucose 133 mg/dL (65-110); Potassium 4.4 mmol/L (3.4-5.0); Sodium 136 mmol/L (137-145)
[2023-09-19] MEDS: MEMANTINE 10 MG TABLET PO ×2 (08:31→20:48)
[2023-09-19] MEDS: MAGNESIUM OXIDE 200 MG TABLET PO ×2 (08:31→20:48)
[2023-09-19] MEDS: CHOLECALCIFEROL 1,000 UNITS TABLET 1000 UNITS PO (08:31)
[2023-09-19] MEDS: BRIMONIDINE TARTRATE 0.2% OP SOLN 5 ML BTL 1 DROP RIGHT EYE ×2 (08:52→20:49)
[2023-09-19] MEDS: DORZOLAMIDE/TIMOLOL OPHTH SOL 10 ML BOTTLE 1 DROP RIGHT EYE ×2 (08:52→20:49)
[2023-09-19] MEDS: SODIUM CHLORIDE 0.9% IV 1,000 ML 75 ML IV CONT (09:58)
[2023-09-19] MEDS: FERROUS SULFATE 325 MG TABLET DR PO ×2 (11:43→16:41)
--- NOTE | 2023-09-19 15:18 | PM.IMPN ---
Progress Note: A&P Assessment and Plan (1) Pneumonia: Code(s): J18.9 - Pneumonia, unspecified organism Status: Acute Assessment and Plan: CXR showed patchy areas of left upper and mid lung airspace disease with dense consolidation in the left lung base, concerning for pneumonia. Small left pleural effusion. continue Rocephin and doxycycline PRN supportive care oxygen at 2L NC (2) Acute UTI: Code(s): N39.0 - Urinary tract infection, site not specified Status: Acute Assessment and Plan: continue Rocephin UA culture pending (3) Acute hypoxemic respiratory failure: Code(s): J96.01 - Acute respiratory failure with hypoxia Status: Acute Assessment and Plan: CTA of chest abdomen pelvis ordered to rule out pulmonary embolism given hypoxia and tachycardia or obstructing lesion of the urinary tract given significant hematuria (4) Sepsis: Code(s): A41.9 - Sepsis, unspecified organism Status: Acute Assessment and Plan: meets SIRS criteria with bandemia, fever, tachycardia and tachypnea Source of sepsis include UTI and possibly pneumonia continue IV gentle hydration continue to monitor and trend labs Plan elevated INR: could be due to the patient's Eliquis or infection. Will hold Eliquis. Subjective Date/time seen: 09/19/23 15:18 Interval history: Patient is not in acute distress, denies pain or SOB. CT scan report pending for rule out of PE due to presenting symptoms in ER. Rate now controlled after receiving her beta blockers. Treating for pneumonia possibly leading to sepsis. Will continue gentle IV hydration. UA and BC pending. Exam Narrative: GENERAL: fair-appearing, well-nourished, and in no acute distress. HEAD: Normocephalic, atraumatic. EYES: PERRLA and EOMI. Right eye nearly closed, glossed over. Chronic. ENT: Mucous membranes moist. NECK: Supple. CHEST: Lung sounds diminished at bases, otherwise clear. No respiratory distress. HEART: regular rate, irregular rhythm. No murmur heard. Normal peripheral pulses. ABDOMEN: Soft, nontender, nondistended, bowel sounds present. EXTREMITIES: Normal range of motion. No edema. SKIN: Warm, dry, no rash. NEURO: No focal deficits. Alert and oriented x2. PSYCH: Normal mood and affect. Objective Data Vital Signs Vital Signs: Vital Signs - 24 hr 09/18/23 19:10 09/18/23 20:29 09/18/23 21:47 Temperature 101.4 F H 97.6 F Pulse Rate 100 Respiratory Rate 22 H Blood Pressure 100/54 L Pulse Oximetry 98 Oxygen Delivery Nasal Cannula Oxygen Flow Rate 2 09/18/23 21:35 09/18/23 20:50 09/18/23 21:00 Temperature Pulse Rate 73 86 Respiratory Rate 17 13 Blood Pressure Pulse Oximetry 97 100 100 Oxygen Delivery Nasal Cannula Oxygen Flow Rate 2 09/18/23 21:01 09/18/23 21:46 09/18/23 22:00 Temperature Pulse Rate 77 76 80 Respiratory Rate 16 19 19 Blood Pressure 99/45 L Pulse Oximetry 100 Oxygen Delivery Oxygen Flow Rate 09/18/23 22:01 09/18/23 22:31 09/18/23 22:37 Temperature Pulse Rate 78 Respiratory Rate 16 Blood Pressure 94/46 L 98/80 L Pulse Oximetry 95 Oxygen Delivery Oxygen Flow Rate 09/18/23 22:48 09/18/23 23:19 09/19/23 00:13 Temperature 98.6 F 98.3 F Pulse Rate 63 60 Respiratory Rate 19 16 Blood Pressure 98/80 L Pulse Oximetry 98 100 100 Oxygen Delivery Nasal Cannula Oxygen Flow Rate 2 09/19/23 03:06 09/19/23 00:00 09/19/23 04:22 Temperature 98.3 F 98.8 F Pulse Rate 59 L 149 H Respiratory Rate 22 H Blood Pressure 150/72 H Pulse Oximetry 93 Oxygen Delivery Nasal Cannula Oxygen Flow Rate 3 09/19/23 04:40 09/19/23 04:00 09/19/23 05:12 Temperature 98.8 F Pulse Rate 146 H 129 H 89 Respiratory Rate 24 H Blood Pressure 150/72 H Pulse Oximetry 93 Oxygen Delivery Oxygen Flow Rate 09/19/23 07:25 09/19/23 08:00 09/19/23 09:43 Temperature P
[2023-09-19] MEDS: MELATONIN 3 MG TABLET PO (20:48)
[2023-09-20] VITALS (11 sets, daily range): BP systolic 108–118; BP diastolic 58–68; PULSE 70–91; RESP 17–20; TEMP 36.7; O2SAT 90–92
[2023-09-20] MEDS: DOXYCYCLINE 100 MG/NS 100 ML 100 MG/100 ML BAG IVPB ×2 (05:41→17:03)
[2023-09-20] MEDS: SODIUM CHLORIDE 0.9% IV 1,000 ML 75 ML IV CONT (05:46)
[2023-09-20 06:01] LABS: Basophils Percent Auto 0.1 % (0.2-1.2); Eosinophils Absolute Auto 0.1 K/mm3 (0-0.3); Eosinophils Percent Auto 0.7 % (0-4.4); Hematocrit 24.8 % (37.0-47.0); Hemoglobin 7.7 g/dL (12.0-15.0); Immature Granulocyte Absolute 0.04 K/mm3 (0.00-0.031); Immature Granulocyte Percent A 0.6 % (0-0.5); Lymphocytes Absolute Auto 0.44 K/mm3 (0.9-3.2); Lymphocytes Percent Auto 6.4 % (18.3-44.2); Mean Platelet Volume 8.9 fl (7.4-10.4); Monocytes Absolute Auto 0.5 K/mm3 (0.1-0.6); Monocytes Percent Auto 6.8 % (2.6-8.5); Neutrophils Absolute Auto 5.9 K/mm3 (1.3-6.7); Neutrophils Percent Auto 85.4 % (45.5-73.1); Platelet Count Result 131 k/mm3 (150-375); Red Blood Count 2.48 M/mm3 (4.2-5.4); White Blood Count 6.9 K/mm3 (4.5-10.0)
[2023-09-20 06:17] LABS: INR 2.4; Lactic Acid Reflex 0.7 mmol/L (0.7-2.0); Partial Thromboplastin Time 59.2 SECONDS (22.3-36.8); Prothrombin Time 28.1 Seconds (11.1-14.7)
[2023-09-20 06:22] LABS: D Dimer 2.15 ug/mL (<0.48)
[2023-09-20 07:10] LABS: Anion Gap 5 mmol/L (8-16); Blood Urea Nitrogen 23 mg/dL (7-17); Carbon Dioxide 26 mmol/L (22-30); Chloride 101 mmol/L (98-107); Estimated CRCL calculation 41 ml/min; Estimated Glomerular Filt Rate > 60; Glucose 72 mg/dL (65-110); Potassium 3.6 mmol/L (3.4-5.0); Sodium 132 mmol/L (137-145)
[2023-09-20] MEDS: MEMANTINE 10 MG TABLET PO ×2 (08:25→20:30)
[2023-09-20] MEDS: CHOLECALCIFEROL 1,000 UNITS TABLET 1000 UNITS PO (08:25)
[2023-09-20] MEDS: MAGNESIUM OXIDE 200 MG TABLET PO ×2 (08:25→20:30)
[2023-09-20] MEDS: METOPROLOL SUCCINATE EXT REL 25 MG TABCR PO (08:25)
[2023-09-20] MEDS: amLODIPine BESYLATE 5 MG TABLET 10 MG PO (08:25)
[2023-09-20] MEDS: DORZOLAMIDE/TIMOLOL OPHTH SOL 10 ML BOTTLE 1 DROP RIGHT EYE ×2 (08:26→20:31)
[2023-09-20] MEDS: BRIMONIDINE TARTRATE 0.2% OP SOLN 5 ML BTL 1 DROP RIGHT EYE ×2 (08:31→20:31)
[2023-09-20] MEDS: FERROUS SULFATE 325 MG TABLET DR PO ×2 (11:33→17:03)
--- NOTE | 2023-09-20 15:24 | PM.IMPN ---
Progress Note: A&P Assessment and Plan (1) Pneumonia: Qualifiers: Laterality: bilateral Lung location: unspecified part of lung Pneumonia type: due to unspecified organism Qualified Code(s): J18.9 - Pneumonia, unspecified organism Code(s): J18.9 - Pneumonia, unspecified organism Status: Acute Assessment and Plan: CXR showed patchy areas of left upper and mid lung airspace disease with dense consolidation in the left lung base, concerning for pneumonia. Small left pleural effusion. continue Rocephin and doxycycline PRN supportive care oxygen at 2L NC (2) Acute UTI: Code(s): N39.0 - Urinary tract infection, site not specified Status: Acute Assessment and Plan: continue Rocephin UA culture prelim growing e. coli CT showed possible cystitis, correlate with urinalysis. Patchy left renal enhancement may reflect pyelonephritis in the appropriate clinical context. (3) Acute hypoxemic respiratory failure: Code(s): J96.01 - Acute respiratory failure with hypoxia Status: Acute Assessment and Plan: CTA of chest abdomen pelvis negative for pulmonary embolism but showed right middle and upper lobe centrilobular nodular consolidations with suggestion of early cavitation as can be seen with septic emboli, necrotic pneumonia, and neoplastic disease. Moderate pulmonary edema. Large left and small right pleural effusions. Likely left lower lobe and subsegmental left upper lobe passive atelectasis, consolidation of pneumonia is not excluded. currently on 2L NC (4) QT prolongation: Code(s): R94.31 - Abnormal electrocardiogram [ECG] [EKG] Status: Acute (5) Sepsis: Code(s): A41.9 - Sepsis, unspecified organism Status: Acute Assessment and Plan: meets SIRS criteria with bandemia, fever, tachycardia and tachypnea Source of sepsis include UTI and possibly pneumonia continue IV gentle hydration continue to monitor and trend labs BC pending, NGTD (6) Right renal mass: Code(s): N28.89 - Other specified disorders of kidney and ureter Status: Acute Assessment and Plan: CT scan showed Patchy left renal enhancement may reflect pyelonephritis in the appropriate clinical context. Enhancing right upper pole renal mass concerning for renal cell carcinoma. Indeterminate density right midpole lesion, may represent hemorrhagic or proteinaceous cyst or an additional focus of carcinoma. hem/oncology consulted - awaiting evaluation (7) Abnormal CT of the abdomen: Code(s): R93.5 - Abnormal findings on diagnostic imaging of other abdominal regions, including retroperitoneum Status: Acute Subjective Date/time seen: 09/20/23 15:24 Interval history: Patient is not in acute distress, denies pain or SOB. CT scan negative for PE but showed renal carcinoma and possible splenic infarct. Hem/onc consulted for renal evaluation. Will further investigate possible splenic infarct should patient clinically present as she is having no pain at this time. Treating for pneumonia possibly leading to sepsis. Will continue gentle IV hydration. UA showing E.coli, will continue Rocephin until sensitivity finalizes and BC pending. Review of Systems Review of Systems: ROS unobtainable: Yes unobtainable due to mental status Exam Narrative: GENERAL: fair-appearing, well-nourished, and in no acute distress. HEAD: Normocephalic, atraumatic. EYES: PERRLA and EOMI. Right eye nearly closed, glossed over. Chronic. ENT: Mucous membranes moist. NECK: Supple. CHEST: Lung sounds diminished at bases, otherwise clear. No respiratory distress. HEART: regular rate, irregular rhythm. No murmur heard. Normal peripheral pulses. ABDOMEN: Soft, nontender, nondistended, bowel sounds present. EXTREMITIES: Normal range of motion. No edema. SKIN: Warm, dry, no rash. NEURO: No focal deficits. Alert and oriented x2. PSYCH: Normal mood and affect. Objecti
[2023-09-20] MEDS: MELATONIN 3 MG TABLET PO (20:30)
[2023-09-20 21:45] LABS: Glucose Point of Care 127 mg/dl (65-105)
[2023-09-21] VITALS (11 sets, daily range): BP systolic 115–127; BP diastolic 60–61; PULSE 63–100; RESP 16; TEMP 36.3–36.6; O2SAT 92–100
[2023-09-21] MEDS: DOXYCYCLINE 100 MG/NS 100 ML 100 MG/100 ML BAG IVPB (05:18)
[2023-09-21] MEDS: SODIUM CHLORIDE 0.9% IV 1,000 ML 75 ML IV CONT ×2 (05:21→22:00)
[2023-09-21 06:01] LABS: Basophils Percent Auto 0.4 % (0.2-1.2); Eosinophils Percent Auto 0.7 % (0-4.4); Hematocrit 25.7 % (37.0-47.0); Hemoglobin 7.6 g/dL (12.0-15.0); Immature Granulocyte Absolute 0.04 K/mm3 (0.00-0.031); Immature Granulocyte Percent A 0.7 % (0-0.5); Lymphocytes Absolute Auto 0.48 K/mm3 (0.9-3.2); Lymphocytes Percent Auto 8.5 % (18.3-44.2); Mean Corpuscular HGB Conc 29.6 g/dl (32-36); Mean Corpuscular Hemoglobin 30.6 pg (26-34); Mean Corpuscular Volume 103.6 fl (80-100); Mean Platelet Volume 9.3 fl (7.4-10.4); Monocytes Absolute Auto 0.5 K/mm3 (0.1-0.6); Monocytes Percent Auto 8.1 % (2.6-8.5); Neutrophils Absolute Auto 4.6 K/mm3 (1.3-6.7); Neutrophils Percent Auto 81.6 % (45.5-73.1); Platelet Count Result 141 k/mm3 (150-375); Red Blood Count 2.48 M/mm3 (4.2-5.4); Red Cell Distribution Width 15.8 % (11.5-14.5); White Blood Count 5.7 K/mm3 (4.5-10.0)
[2023-09-21 06:22] LABS: Albumin Level 2.6 g/dL (3.5-5.1); Anion Gap 5 mmol/L (8-16); Blood Urea Nitrogen 18 mg/dL (7-17); Calcium 7.8 mg/dL (8.4-10.2); Carbon Dioxide 24 mmol/L (22-30); Chloride 103 mmol/L (98-107); Estimated CRCL calculation 54 ml/min; Estimated Glomerular Filt Rate > 60; Glucose 86 mg/dL (65-110); Phosphorus 2.9 mg/dL (2.5-4.5); Potassium 3.9 mmol/L (3.4-5.0); Sodium 132 mmol/L (137-145)
[2023-09-21] MEDS: CHOLECALCIFEROL 1,000 UNITS TABLET 1000 UNITS PO (08:29)
[2023-09-21] MEDS: METOPROLOL SUCCINATE EXT REL 25 MG TABCR PO (08:29)
[2023-09-21] MEDS: MEMANTINE 10 MG TABLET PO ×2 (08:29→20:20)
[2023-09-21] MEDS: MAGNESIUM OXIDE 200 MG TABLET PO ×2 (08:29→20:20)
[2023-09-21] MEDS: amLODIPine BESYLATE 5 MG TABLET 10 MG PO (08:29)
[2023-09-21] MEDS: ACETAMINOPHEN 325 MG TABLET 650 MG PO (08:29)
[2023-09-21] MEDS: DORZOLAMIDE/TIMOLOL OPHTH SOL 10 ML BOTTLE 1 DROP RIGHT EYE ×2 (08:29→20:20)
[2023-09-21] MEDS: BRIMONIDINE TARTRATE 0.2% OP SOLN 5 ML BTL 1 DROP RIGHT EYE ×2 (08:29→20:20)
[2023-09-21 08:33] LABS: Iron 44 ug/dL (37-170)
[2023-09-21 08:43] LABS: Percent Iron Saturation 30 % (20-50)
[2023-09-21] MEDS: cefTRIAXone 2 GM/NS 100 ML 2 GM/100 ML BAG IVPB (10:39)
[2023-09-21] MEDS: FERROUS SULFATE 325 MG TABLET DR PO ×2 (13:13→17:55)
--- NOTE | 2023-09-21 15:55 | P.PNIM_ITS ---
Progress Note: A&P Assessment and Plan (1) Pneumonia: Qualifiers: Laterality: bilateral Lung location: unspecified part of lung Pneumonia type: due to unspecified organism Qualified Code(s): J18.9 - Pneumonia, unspecified organism Code(s): J18.9 - Pneumonia, unspecified organism Status: Acute Assessment and Plan: * CXR showed patchy areas of left upper and mid lung airspace disease with dense consolidation in the left lung base, concerning for pneumonia. Small left pleural effusion. * continue Rocephin and doxycycline * PRN supportive care * oxygen at 2L NC (2) Acute UTI: Code(s): N39.0 - Urinary tract infection, site not specified Status: Acute Assessment and Plan: * UA culture shows e. coli, susceptible to Rocephin * CT showed possible cystitis, correlate with urinalysis. Patchy left renal enhancement may reflect pyelonephritis in the appropriate clinical context. (3) Acute hypoxemic respiratory failure: Code(s): J96.01 - Acute respiratory failure with hypoxia Status: Acute Assessment and Plan: * CTA of chest abdomen pelvis negative for pulmonary embolism but showed right middle and upper lobe centrilobular nodular consolidations with suggestion of early cavitation as can be seen with septic emboli, necrotic pneumonia, and neoplastic disease. * Moderate pulmonary edema. Large left and small right pleural effusions. Likely left lower lobe and subsegmental left upper lobe passive atelectasis, consolidation of pneumonia is not excluded. * currently on 2L NC (4) QT prolongation: Code(s): R94.31 - Abnormal electrocardiogram [ECG] [EKG] Status: Acute (5) Sepsis: Code(s): A41.9 - Sepsis, unspecified organism Status: Acute Assessment and Plan: * meets SIRS criteria with bandemia, fever, tachycardia and tachypnea * Source of sepsis include UTI and possibly pneumonia * continue IV gentle hydration * continue to monitor and trend labs * BC prelim showing e.coli, likely secondary to urinary tract infection * increased Rocephin to 2g until final results (6) Right renal mass: Code(s): N28.89 - Other specified disorders of kidney and ureter Status: Acute Assessment and Plan: * CT scan showed Patchy left renal enhancement may reflect pyelonephritis in the appropriate clinical context. Enhancing right upper pole renal mass concerning for renal cell carcinoma. Indeterminate density right midpole lesion, may represent hemorrhagic or proteinaceous cyst or an additional focus of carcinoma. * hem/oncology consulted - awaiting evaluation (7) Abnormal CT of the abdomen: Code(s): R93.5 - Abnormal findings on diagnostic imaging of other abdominal regions, including retroperitoneum Status: Acute (8) Anemia: Qualifiers: Anemia type: unspecified type Qualified Code(s): D64.9 - Anemia, unspecified Code(s): D64.9 - Anemia, unspecified Status: Acute Assessment and Plan: * not true baseline, but appears chronic * likely worsened by infection * iron panel: iron - 44, TIBC - 148, ferritin - 458, 30% sat * PO iron * 7.6/25.7 today, will continue to monitor * currently holding Eliquis Subjective Date/time seen: 09/21/23 15:55 Interval history: Patient is not in acute distress, denies pain or SOB. Hem/onc consulted for renal evaluation - still awaiting evaluation. Treating for pneumonia. Will continue gentle IV hydration. UA showing E.coli, will continue Rocephin until sensitivity finalizes. BC pending, b
--- NOTE | 2023-09-21 15:55 | PM.IMPN ---
Progress Note: A&P Assessment and Plan (1) Pneumonia: Qualifiers: Laterality: bilateral Lung location: unspecified part of lung Pneumonia type: due to unspecified organism Qualified Code(s): J18.9 - Pneumonia, unspecified organism Code(s): J18.9 - Pneumonia, unspecified organism Status: Acute Assessment and Plan: CXR showed patchy areas of left upper and mid lung airspace disease with dense consolidation in the left lung base, concerning for pneumonia. Small left pleural effusion. continue Rocephin and doxycycline PRN supportive care oxygen at 2L NC (2) Acute UTI: Code(s): N39.0 - Urinary tract infection, site not specified Status: Acute Assessment and Plan: UA culture shows e. coli, susceptible to Rocephin CT showed possible cystitis, correlate with urinalysis. Patchy left renal enhancement may reflect pyelonephritis in the appropriate clinical context. (3) Acute hypoxemic respiratory failure: Code(s): J96.01 - Acute respiratory failure with hypoxia Status: Acute Assessment and Plan: CTA of chest abdomen pelvis negative for pulmonary embolism but showed right middle and upper lobe centrilobular nodular consolidations with suggestion of early cavitation as can be seen with septic emboli, necrotic pneumonia, and neoplastic disease. Moderate pulmonary edema. Large left and small right pleural effusions. Likely left lower lobe and subsegmental left upper lobe passive atelectasis, consolidation of pneumonia is not excluded. currently on 2L NC (4) QT prolongation: Code(s): R94.31 - Abnormal electrocardiogram [ECG] [EKG] Status: Acute (5) Sepsis: Code(s): A41.9 - Sepsis, unspecified organism Status: Acute Assessment and Plan: meets SIRS criteria with bandemia, fever, tachycardia and tachypnea Source of sepsis include UTI and possibly pneumonia continue IV gentle hydration continue to monitor and trend labs BC prelim showing e.coli, likely secondary to urinary tract infection increased Rocephin to 2g until final results (6) Right renal mass: Code(s): N28.89 - Other specified disorders of kidney and ureter Status: Acute Assessment and Plan: CT scan showed Patchy left renal enhancement may reflect pyelonephritis in the appropriate clinical context. Enhancing right upper pole renal mass concerning for renal cell carcinoma. Indeterminate density right midpole lesion, may represent hemorrhagic or proteinaceous cyst or an additional focus of carcinoma. hem/oncology consulted - awaiting evaluation (7) Abnormal CT of the abdomen: Code(s): R93.5 - Abnormal findings on diagnostic imaging of other abdominal regions, including retroperitoneum Status: Acute (8) Anemia: Qualifiers: Anemia type: unspecified type Qualified Code(s): D64.9 - Anemia, unspecified Code(s): D64.9 - Anemia, unspecified Status: Acute Assessment and Plan: not true baseline, but appears chronic likely worsened by infection iron panel: iron - 44, TIBC - 148, ferritin - 458, 30% sat PO iron 7.6/25.7 today, will continue to monitor currently holding Eliquis Subjective Date/time seen: 09/21/23 15:55 Interval history: Patient is not in acute distress, denies pain or SOB. Hem/onc consulted for renal evaluation - still awaiting evaluation. Treating for pneumonia. Will continue gentle IV hydration. UA showing E.coli, will continue Rocephin until sensitivity finalizes. BC pending, but prelim showing e. coli, likely source from urine. Increased to 2g Rocephin until finalized. Review of Systems Review of Systems: ROS unobtainable: Yes unobtainable due to mental status Exam Narrative: GENERAL: fair-appearing, well-nourished, and in no acute distress. HEAD: Normocephalic, atraumatic. EYES: PERRLA and EOMI. Right eye nearly closed, glossed over. Chronic. ENT: Mucous membranes mois
--- NOTE | 2023-09-21 18:53 | PDONCCN ---
[facility] - Date of Consult Date/Time: 09/21/23 18:53 Requesting Physician: Elizabeth Zendejas DO Primary Care Provider: Mau Alford MD - Consult Narrative Reason for consult: Macrocytic anemia and thrombocytopenia Narrative: Rachell Power is a 83 year old female with multiple comorbidities including atrial fibrillation type 2 diabetes, hypertension and stroke came into the hospital from the [facility] due to lethargic and fever. She had temperature of 101.4? on arrival. According the patient she always been anemic. She seems to be confused. Denies any excessive tiredness and fatigue. Complain of rectal bleeding for 6 months duration. Patient is on chronic anticoagulation therapy with Eliquis for atrial fibrillation. Labs showed hemoglobin of 8.4 now dropped to 7.6. Platelet count was normal on arrival now 141,000. Other labs showed normal kidney function and elevated serum ferritin. Iron studies was normal. Iron saturation was normal and 30%. Review of Systems - Review of Systems All systems reviewed & are unremarkable except as noted in [facility] and [facility] Medical History: Medical History (Last Updated 09/19/23 @ 21:56 by Elizabeth Zendejas DO) Afib Body mass index (BMI) greater than 40 Onset Date: 09/19/15 Patient BMI is now 21 (August 2023) CHF (congestive heart failure) Diabetic peripheral neuropathy Essential (primary) hypertension Helicobacter positive gastritis History of CVA (cerebrovascular accident) Microcytic anemia Multi-infarct dementia Obstructive sleep apnea Pulmonary hypertension Renal cell carcinoma Stroke Type 2 diabetes mellitus with hyperglycemia Surgical History: Surgical History (Last Reviewed 09/19/23 @ 10:04 by Elizabeth Zendejas DO) H/O inguinal hernia repair H/O: hysterectomy History of arthroplasty of both knees History of cataract surgery both eyes, did not work in right eye Family History: Family History (Last Reviewed 09/19/23 @ 21:01 by Elizabeth Zendejas DO) Sibling Family history of thyroid disease Cerebrovascular accident - Social History Social History: Social History (Last Reviewed 09/18/23 @ 20:10 by Cleveland Duarte MD) Gender Identity: Gender identity (if verbalized by the patient): Male Alcohol Use: Alcohol intake: never Substance Use: Substance use: never Others: Spiritual care concerns: No Living Arrangements: Living arrangements: with family Smoking Status: Smoking status: Never smoker Second hand tobacco smoke exposure: No Social Determinants of Health: Do You Feel Safe in your Home?: Yes Has the Lack of Transportation Kept You From Medical Appointments or From Getting Medications?: No Within the Past 12 Months, Were You Worried Whether Your Food Would Run Out Before You Got Money to Buy More?: Never True What is Your Housing Situation Today?: I Have Housing Are You Worried That in the Next 2 Months, You May Not Have Your Own Housing to Live In?: No Do You Have Trouble Paying Your Heating Or Electricity Bill?: No Do You Have Trouble Paying For Medicines?: No Are You Currently Unemployed and Looking for Work?: No Highest Level of Education Completed: Grade School Do You Have Trouble With Childcare or the Care of a Family Member?: No Exam - Vital Signs Vital Signs - 24 hr 09/20/23 20:04 09/20/23 20:00 09/20/23 20:00 Temperature 36.7 C Pulse Rate 81 84 Respiratory Rate 17 Blood Pressure 114/59 L Pulse Oximetry 90 92 Oxygen Delivery Nasal Cannula Oxygen Flow Rate 2 09/21/23 00:00 09/21/23 04:00 09/21/23 05:54 Temperature 36.3 C L Pulse Rate 67 63 80 Respiratory Rate 16 Blood Pressure 127/60 Pulse Oximetry 95 Oxygen Delivery Oxygen Flow Rate 09/21/23 08:29 09/21/23 09:09 09/21/23 08:00 Temperature Pulse Rate 100 Respiratory Rate Blood Pressure Pulse Oxi
[2023-09-21] MEDS: DOXYCYCLINE HYCLATE 100 MG TABLET PO (20:20)
[2023-09-21] MEDS: MELATONIN 3 MG TABLET PO (20:21)
[2023-09-22] VITALS (11 sets, daily range): BP systolic 104–117; BP diastolic 43–47; PULSE 63–86; RESP 16–18; TEMP 36.5–37.1; O2SAT 92–99
[2023-09-22 06:53] LABS: Anion Gap 4 mmol/L (8-16); Blood Urea Nitrogen 11 mg/dL (7-17); Carbon Dioxide 26 mmol/L (22-30); Chloride 105 mmol/L (98-107); Estimated CRCL calculation 64 ml/min; Estimated Glomerular Filt Rate > 60; Glucose 94 mg/dL (65-110); Potassium 3.8 mmol/L (3.4-5.0); Sodium 135 mmol/L (137-145)
[2023-09-22 06:58] LABS: Basophils Percent Auto 0.5 % (0.2-1.2); Eosinophils Absolute Auto 0.1 K/mm3 (0-0.3); Eosinophils Percent Auto 2.6 % (0-4.4); Hematocrit 26.7 % (37.0-47.0); Immature Granulocyte Absolute 0.02 K/mm3 (0.00-0.031); Immature Granulocyte Percent A 0.5 % (0-0.5); Lymphocytes Absolute Auto 0.38 K/mm3 (0.9-3.2); Mean Corpuscular Hemoglobin 30.3 pg (26-34); Mean Corpuscular Volume 101.1 fl (80-100); Mean Platelet Volume 9.5 fl (7.4-10.4); Monocytes Absolute Auto 0.3 K/mm3 (0.1-0.6); Monocytes Percent Auto 5.9 % (2.6-8.5); Neutrophils Absolute Auto 3.4 K/mm3 (1.3-6.7); Neutrophils Percent Auto 81.5 % (45.5-73.1); Platelet Count Result 145 k/mm3 (150-375); Red Blood Count 2.64 M/mm3 (4.2-5.4); Red Cell Distribution Width 15.6 % (11.5-14.5); White Blood Count 4.2 K/mm3 (4.5-10.0)
[2023-09-22] MEDS: amLODIPine BESYLATE 5 MG TABLET 10 MG PO (09:30)
[2023-09-22] MEDS: MAGNESIUM OXIDE 200 MG TABLET PO ×2 (09:31→20:09)
[2023-09-22] MEDS: CHOLECALCIFEROL 1,000 UNITS TABLET 1000 UNITS PO (09:31)
[2023-09-22] MEDS: DOXYCYCLINE HYCLATE 100 MG TABLET PO ×2 (09:31→20:09)
[2023-09-22] MEDS: MEMANTINE 10 MG TABLET PO ×2 (09:32→20:09)
[2023-09-22] MEDS: METOPROLOL SUCCINATE EXT REL 25 MG TABCR PO (09:32)
[2023-09-22] MEDS: DORZOLAMIDE/TIMOLOL OPHTH SOL 10 ML BOTTLE 1 DROP RIGHT EYE ×2 (09:32→20:09)
[2023-09-22] MEDS: BRIMONIDINE TARTRATE 0.2% OP SOLN 5 ML BTL 1 DROP RIGHT EYE ×2 (09:32→20:09)
[2023-09-22] MEDS: cefTRIAXone 2 GM/NS 100 ML 2 GM/100 ML BAG IVPB (09:33)
[2023-09-22] MEDS: FERROUS SULFATE 325 MG TABLET DR PO ×2 (12:20→18:18)
[2023-09-22] MEDS: ACETAMINOPHEN 325 MG TABLET 650 MG PO (12:20)
[2023-09-22] MEDS: SODIUM CHLORIDE 0.9% IV 1,000 ML 75 ML IV CONT (12:24)
--- NOTE | 2023-09-22 15:10 | PC.NURSE ---
On 09/22/23, the CHOCOLATE TEMPERER, Marcia Abreu, provided care and completed [employer] documentation on this patient. I have reviewed the CHOCOLATE TEMPERER's documentation and agree with the findings.
--- NOTE | 2023-09-22 17:34 | P.PNIM_ITS ---
Progress Note: A&P Assessment and Plan (1) Sepsis: Code(s): A41.9 - Sepsis, unspecified organism Status: Acute Assessment and Plan: * meets SIRS criteria with bandemia, fever, tachycardia and tachypnea * Source of sepsis include UTI and possibly pneumonia * continue IV gentle hydration * continue to monitor and trend labs * BC prelim showing e.coli, likely secondary to urinary tract infection * increased Rocephin to 2g until final results 09/22/2023: * Patient finish doxycycline today for pneumonia coverage * We also changed Rocephin over to cefdinir oral * Blood cultures are still pending which showing no growth on preliminary read * Urine culture showing E coli on final read * Continue to monitor labs (2) Acute hypoxemic respiratory failure: Code(s): J96.01 - Acute respiratory failure with hypoxia Status: Acute Assessment and Plan: * CTA of chest abdomen pelvis negative for pulmonary embolism but showed right middle and upper lobe centrilobular nodular consolidations with suggestion of early cavitation as can be seen with septic emboli, necrotic pneumonia, and neoplastic disease. * Moderate pulmonary edema. Large left and small right pleural effusions. Likely left lower lobe and subsegmental left upper lobe passive atelectasis, consolidation of pneumonia is not excluded. * currently on 2L NC 09/22/2023: * Lungs coarse today bilaterally * Patient currently on 4 L nasal cannula * Plan for chest x-ray * Continue antibiotics (3) Pneumonia: Qualifiers: Laterality: bilateral Lung location: unspecified part of lung Pneumonia type: due to unspecified organism Qualified Code(s): J18.9 - Pneumonia, unspecified organism Code(s): J18.9 - Pneumonia, unspecified organism Status: Acute Assessment and Plan: * CXR showed patchy areas of left upper and mid lung airspace disease with dense consolidation in the left lung base, concerning for pneumonia. Small left pleural effusion. * continue Rocephin and doxycycline * PRN supportive care * oxygen at 2L NC 09/22/2023: * Lungs coarse today bilaterally, patient is currently on 4 L nasal cannula,she is not in any acute distress. * Patient finished course of doxycycline and currently on Rocephin which we switched to cefdinir today * Will obtain another chest x-ray in the morning (4) Acute UTI: Code(s): N39.0 - Urinary tract infection, site not specified Status: Acute Assessment and Plan: * UA culture shows e. coli, susceptible to Rocephin * CT showed possible cystitis, correlate with urinalysis. Patchy left renal enhancement may reflect pyelonephritis in the appropriate clinical context. 09/22/2023: * Urine culture positive for E coli on final read, currently on Rocephin which was switched today to cefdinir oral (5) Right renal mass: Code(s): N28.89 - Other specified disorders of kidney and ureter Status: Acute Assessment and Plan: * CT scan showed Patchy left renal enhancement may reflect pyelonephritis in the appropriate clinical context. Enhancing right upper pole renal mass concerning for renal cell carcinoma. Indeterminate density right midpole lesion, may represent hemorrhagic or proteinaceous cyst or an additional focus of carcinoma. * hem/oncology consulted - awaiting evaluation 09/22/2023: * Oncology following and suggest repeat imaging in a couple of months once she is more stable as she is not currently a candidate for surgery * Will observe for now (6) Abnormal CT of the abdomen: Co
--- NOTE | 2023-09-22 17:34 | PM.IMPN ---
Progress Note: A&P Assessment and Plan (1) Sepsis: Code(s): A41.9 - Sepsis, unspecified organism Status: Acute Assessment and Plan: meets SIRS criteria with bandemia, fever, tachycardia and tachypnea Source of sepsis include UTI and possibly pneumonia continue IV gentle hydration continue to monitor and trend labs BC prelim showing e.coli, likely secondary to urinary tract infection increased Rocephin to 2g until final results 09/22/2023: Patient finish doxycycline today for pneumonia coverage We also changed Rocephin over to cefdinir oral Blood cultures are still pending which showing no growth on preliminary read Urine culture showing E coli on final read Continue to monitor labs (2) Acute hypoxemic respiratory failure: Code(s): J96.01 - Acute respiratory failure with hypoxia Status: Acute Assessment and Plan: CTA of chest abdomen pelvis negative for pulmonary embolism but showed right middle and upper lobe centrilobular nodular consolidations with suggestion of early cavitation as can be seen with septic emboli, necrotic pneumonia, and neoplastic disease. Moderate pulmonary edema. Large left and small right pleural effusions. Likely left lower lobe and subsegmental left upper lobe passive atelectasis, consolidation of pneumonia is not excluded. currently on 2L NC 09/22/2023: Lungs coarse today bilaterally Patient currently on 4 L nasal cannula Plan for chest x-ray Continue antibiotics (3) Pneumonia: Qualifiers: Laterality: bilateral Lung location: unspecified part of lung Pneumonia type: due to unspecified organism Qualified Code(s): J18.9 - Pneumonia, unspecified organism Code(s): J18.9 - Pneumonia, unspecified organism Status: Acute Assessment and Plan: CXR showed patchy areas of left upper and mid lung airspace disease with dense consolidation in the left lung base, concerning for pneumonia. Small left pleural effusion. continue Rocephin and doxycycline PRN supportive care oxygen at 2L NC 09/22/2023: Lungs coarse today bilaterally, patient is currently on 4 L nasal cannula,she is not in any acute distress. Patient finished course of doxycycline and currently on Rocephin which we switched to cefdinir today Will obtain another chest x-ray in the morning (4) Acute UTI: Code(s): N39.0 - Urinary tract infection, site not specified Status: Acute Assessment and Plan: UA culture shows e. coli, susceptible to Rocephin CT showed possible cystitis, correlate with urinalysis. Patchy left renal enhancement may reflect pyelonephritis in the appropriate clinical context. 09/22/2023: Urine culture positive for E coli on final read, currently on Rocephin which was switched today to cefdinir oral (5) Right renal mass: Code(s): N28.89 - Other specified disorders of kidney and ureter Status: Acute Assessment and Plan: CT scan showed Patchy left renal enhancement may reflect pyelonephritis in the appropriate clinical context. Enhancing right upper pole renal mass concerning for renal cell carcinoma. Indeterminate density right midpole lesion, may represent hemorrhagic or proteinaceous cyst or an additional focus of carcinoma. hem/oncology consulted - awaiting evaluation 09/22/2023: Oncology following and suggest repeat imaging in a couple of months once she is more stable as she is not currently a candidate for surgery Will observe for now (6) Abnormal CT of the abdomen: Code(s): R93.5 - Abnormal findings on diagnostic imaging of other abdominal regions, including retroperitoneum Status: Acute Assessment and Plan: See above (7) Anemia: Qualifiers: Anemia type: unspecified type Qualified Code(s): D64.9 - Anemia, unspecified Code(s): D64.9 - Anemia, unspecified Status: Acute Assessment and Plan: not true baseline, but appears chronic lik
[2023-09-22] MEDS: MELATONIN 3 MG TABLET PO (20:09)
[2023-09-23] VITALS (11 sets, daily range): BP systolic 108–141; BP diastolic 46–54; PULSE 55–78; RESP 16–18; TEMP 36.2–36.5; O2SAT 90–96
[2023-09-23] MEDS: SODIUM CHLORIDE 0.9% IV 1,000 ML 75 ML IV CONT ×3 (02:42→21:07)
--- NOTE | 2023-09-23 02:43 | PC.NURSE ---
pt ripped out her iv over the night, and got a small skin tear to her left forearm from the tape
--- NOTE | 2023-09-23 08:08 | P.PNIM_ITS ---
Progress Note: A&P Assessment and Plan (1) Sepsis: Code(s): A41.9 - Sepsis, unspecified organism Status: Acute Assessment and Plan: * meets SIRS criteria with bandemia, fever, tachycardia and tachypnea * Source of sepsis include UTI and possibly pneumonia * continue IV gentle hydration * continue to monitor and trend labs * BC prelim showing e.coli, likely secondary to urinary tract infection * increased Rocephin to 2g until final results 09/22/2023: * Patient finish doxycycline today for pneumonia coverage * We also changed Rocephin over to cefdinir oral * Blood cultures are still pending which showing no growth on preliminary read * Urine culture showing E coli on final read * Continue to monitor labs 09/23/23: * blood cultures showing no on preliminary * continue cefdinir * continue to monitor labs (2) Acute hypoxemic respiratory failure: Code(s): J96.01 - Acute respiratory failure with hypoxia Status: Acute Assessment and Plan: * CTA of chest abdomen pelvis negative for pulmonary embolism but showed right middle and upper lobe centrilobular nodular consolidations with suggestion of early cavitation as can be seen with septic emboli, necrotic pneumonia, and neoplastic disease. * Moderate pulmonary edema. Large left and small right pleural effusions. Likely left lower lobe and subsegmental left upper lobe passive atelectasis, consolidation of pneumonia is not excluded. * currently on 2L NC 09/22/2023: * Lungs coarse today bilaterally * Patient currently on 4 L nasal cannula * Plan for chest x-ray * Continue antibiotics 09/23/2023: * lungs remain course today, diminished in the bases. * Patient remains on 4 L nasal cannula * chest x-ray showing moderate left and small right pleural effusion, left basilar airspace disease representing pneumonia and or atelectasis, cardiomegaly * patient was treated for pneumonia with doxycycline * will get pulmonology consult today for further input (3) Pneumonia: Qualifiers: Laterality: bilateral Lung location: unspecified part of lung Pneumonia type: due to unspecified organism Qualified Code(s): J18.9 - Pneumonia, unspecified organism Code(s): J18.9 - Pneumonia, unspecified organism Status: Acute Assessment and Plan: * CXR showed patchy areas of left upper and mid lung airspace disease with dense consolidation in the left lung base, concerning for pneumonia. Small left pleural effusion. * continue Rocephin and doxycycline * PRN supportive care * oxygen at 2L NC 09/22/2023: * Lungs coarse today bilaterally, patient is currently on 4 L nasal cannula,she is not in any acute distress. * Patient finished course of doxycycline and currently on Rocephin which we switched to cefdinir today * Will obtain another chest x-ray in the morning 09/23/2023: * lungs coarse today bilaterally diminished in bases * patient remains on 4 L nasal cannula, unable wean * chest x-ray showing moderate left and small right pleural effusion, left basilar airspace disease representing pneumonia and/or atelectasis, cardiomegaly * pulmonary consulted * patient finished course of doxycycline for pneumonia coverage yesterday (4) Acute UTI: Code(s): N39.0 - Urinary tract infection, site not specified Status: Acute Assessment and Plan: * UA culture shows e. coli, susceptible to Rocephin * CT showed possible cystitis, correlate with urinalysis. Patchy left renal enhancement may reflect pyelonephritis in the appropriate clinical context.
--- NOTE | 2023-09-23 08:08 | PM.IMPN ---
Progress Note: A&P Assessment and Plan (1) Sepsis: Code(s): A41.9 - Sepsis, unspecified organism Status: Acute Assessment and Plan: meets SIRS criteria with bandemia, fever, tachycardia and tachypnea Source of sepsis include UTI and possibly pneumonia continue IV gentle hydration continue to monitor and trend labs BC prelim showing e.coli, likely secondary to urinary tract infection increased Rocephin to 2g until final results 09/22/2023: Patient finish doxycycline today for pneumonia coverage We also changed Rocephin over to cefdinir oral Blood cultures are still pending which showing no growth on preliminary read Urine culture showing E coli on final read Continue to monitor labs 09/23/23: blood cultures showing no on preliminary continue cefdinir continue to monitor labs (2) Acute hypoxemic respiratory failure: Code(s): J96.01 - Acute respiratory failure with hypoxia Status: Acute Assessment and Plan: CTA of chest abdomen pelvis negative for pulmonary embolism but showed right middle and upper lobe centrilobular nodular consolidations with suggestion of early cavitation as can be seen with septic emboli, necrotic pneumonia, and neoplastic disease. Moderate pulmonary edema. Large left and small right pleural effusions. Likely left lower lobe and subsegmental left upper lobe passive atelectasis, consolidation of pneumonia is not excluded. currently on 2L NC 09/22/2023: Lungs coarse today bilaterally Patient currently on 4 L nasal cannula Plan for chest x-ray Continue antibiotics 09/23/2023: lungs remain course today, diminished in the bases. Patient remains on 4 L nasal cannula chest x-ray showing moderate left and small right pleural effusion, left basilar airspace disease representing pneumonia and or atelectasis, cardiomegaly patient was treated for pneumonia with doxycycline will get pulmonology consult today for further input (3) Pneumonia: Qualifiers: Laterality: bilateral Lung location: unspecified part of lung Pneumonia type: due to unspecified organism Qualified Code(s): J18.9 - Pneumonia, unspecified organism Code(s): J18.9 - Pneumonia, unspecified organism Status: Acute Assessment and Plan: CXR showed patchy areas of left upper and mid lung airspace disease with dense consolidation in the left lung base, concerning for pneumonia. Small left pleural effusion. continue Rocephin and doxycycline PRN supportive care oxygen at 2L NC 09/22/2023: Lungs coarse today bilaterally, patient is currently on 4 L nasal cannula,she is not in any acute distress. Patient finished course of doxycycline and currently on Rocephin which we switched to cefdinir today Will obtain another chest x-ray in the morning 09/23/2023: lungs coarse today bilaterally diminished in bases patient remains on 4 L nasal cannula, unable wean chest x-ray showing moderate left and small right pleural effusion, left basilar airspace disease representing pneumonia and/or atelectasis, cardiomegaly pulmonary consulted patient finished course of doxycycline for pneumonia coverage yesterday (4) Acute UTI: Code(s): N39.0 - Urinary tract infection, site not specified Status: Acute Assessment and Plan: UA culture shows e. coli, susceptible to Rocephin CT showed possible cystitis, correlate with urinalysis. Patchy left renal enhancement may reflect pyelonephritis in the appropriate clinical context. 09/22/2023: Urine culture positive for E coli on final read, currently on Rocephin which was switched today to cefdinir oral 09/23/2023: continue with current treatment plan (5) Right renal mass: Code(s): N28.89 - Other specified disorders of kidney and ureter Status: Acute Assessment and Plan: CT scan showed Patchy left renal enhancement may reflect pyelonephritis in the appropriate clinical
[2023-09-23] MEDS: DORZOLAMIDE/TIMOLOL OPHTH SOL 10 ML BOTTLE 1 DROP RIGHT EYE ×2 (09:21→21:08)
[2023-09-23] MEDS: BRIMONIDINE TARTRATE 0.2% OP SOLN 5 ML BTL 1 DROP RIGHT EYE ×2 (09:21→21:07)
[2023-09-23] MEDS: SULFAMETHOXAZOLE/TRIMETHOPRIM 800/160 MG DS TABLET 2 TAB PO ×2 (09:22→21:05)
[2023-09-23] MEDS: CHOLECALCIFEROL 1,000 UNITS TABLET 1000 UNITS PO (09:22)
[2023-09-23] MEDS: MEMANTINE 10 MG TABLET PO ×2 (09:22→21:05)
[2023-09-23] MEDS: amLODIPine BESYLATE 5 MG TABLET 10 MG PO (09:22)
[2023-09-23] MEDS: MAGNESIUM OXIDE 200 MG TABLET PO ×2 (09:22→21:05)
[2023-09-23] MEDS: METOPROLOL SUCCINATE EXT REL 25 MG TABCR PO (09:22)
[2023-09-23] MEDS: FERROUS SULFATE 325 MG TABLET DR PO ×2 (13:52→17:52)
--- NOTE | 2023-09-23 16:00 | PM.CNPUL ---
Assessment and Plan Assessment and plan (1) Pleural effusion, left: Code(s): J90 - Pleural effusion, not elsewhere classified Status: Acute Assessment and Plan: Patient was admitted with E coli UTI with E coli bacteremia. CT scan shows multiple patchy infiltrates throughout all low lungs, moderate size left pleural effusion that is free-flowing. She has remained hemodynamically stable and was treated with ceftriaxone and azithromycin and is currently on Septra. She is in no respiratory distress and her oxygenation has improved since admission and currently she is on 1 L nasal cannula oxygen. She is anemic, and she is a Muslim and after speaking with the daughter in law the patient has previously said she would rather than have a blood transfusion. Patient is DNR. Plan: I recommended left thoracentesis to the daughter in law if the plan is to aggressively pursue additional therapies for possible complicated left pleural effusion or empyema which would entail transferring to a higher level of care facility for a chest tube. I explained the benefits and the risks of the procedure. The daughter in-law ask me for additional options and the other option that we talked about was not performing the thoracentesis and following the patient clinically on antibiotics. The daughter in-law will speak to the patient's son and I will call them on 09/24/2023 to discuss their wishes. In the meantime I will order a PT PTT and INR in the morning in case they should wish to pursue with the thoracentesis. Will check a chest x-ray in the morning. (2) Hypoxia: Code(s): R09.02 - Hypoxemia Status: Acute Assessment and Plan: Patient was admitted to the hospital and required 2 L nasal cannula and on 09/21 and 09/22 she required 4 L nasal cannula. Today she is on 1 L nasal cannula. Etiology of patient's hypoxia includes left pleural effusion with adjacent compressive atelectasis, pneumonia, fluid overload, recent bacteremia. Plan: Discussed with family regarding thoracentesis as above, I discussed with hospitalist and we will discontinue her IV fluids. Patient is on Septra and or E coli is sensitive to this and she has responded clinically. Agree with continuation. Goal saturation 90-94%, wean as tolerated. I will send a BNP tomorrow morning. I will send a procalcitonin. Discussed with Carrie her daughter, Rhonda Polo, will follow with you History of Present Illness History of Present Illness Consult date: 09/23/23 Chief complaint: Pneumonia, UTI Narrative: 09/23/2023: This is a new pulmonary consult for hypoxic respiratory failure 09/18/23: admitted 83-year-old female with past medical history of atrial fibrillation (on apixaban), diabetes mellitus with multiple complications, CVA, essential hypertension, CVA and obstructive sleep apnea (severe on sleep study 12/04/2011) who presented to the ER from [facility] via EMS due to fever and lethargy.? Patient had an E coli UTI with E coli bacteremia and chest x-ray on 09/18/2023 demonstrated left lower lobe consolidation. Patient had white blood cell count is 6.9 with 9% bands, procalcitonin 2.8, creatinine 1.2. She was admitted and treated for UTI and pneumonia. Patient was on [address] scan of the chest on 09/19/2023 demonstrated a moderate size left pleural effusion with adjacent compressive atelectasis and patchy infiltrates throughout both lungs. There is a small right pleural effusion. CT scan of the abdomen showed a right upper pole renal mass. She was treated with ceftriaxone, azithromycin, and doxycycline. Her Eliquis was held because of anemia. Of note patient had a chest x-ray on 07/28/2023 with small bilateral pleural effusions. Patient had a CT angiogram of the chest on 07/26/2023 with moderate bilateral pleural effusions right greater than left and no pulmonary embolism. 09/23/2023: Patient has white blood cell count of 4.2
[2023-09-23] MEDS: ACETAMINOPHEN 325 MG TABLET 650 MG PO (21:04)
[2023-09-23] MEDS: MELATONIN 3 MG TABLET PO (21:05)
[2023-09-24] VITALS (10 sets, daily range): BP systolic 102–116; BP diastolic 45–49; PULSE 61–96; RESP 16–17; TEMP 36.3–36.7; O2SAT 94–98
[2023-09-24] MEDS: ACETAMINOPHEN 325 MG TABLET 650 MG PO (03:18)
[2023-09-24] MEDS: SODIUM CHLORIDE 0.9% IV 1,000 ML 75 ML IV CONT (04:34)
[2023-09-24 06:26] LABS: INR 1.2; Prothrombin Time 15.3 Seconds (11.1-14.7)
[2023-09-24 06:27] LABS: Partial Thromboplastin Time 47.2 SECONDS (22.3-36.8)
[2023-09-24 06:39] LABS: NT Pro B Type Natriuretic Pept 3440 pg/mL (19.9-100)
[2023-09-24 07:17] LABS: Procalcitonin 2.3 ng/mL
[2023-09-24] MEDS: amLODIPine BESYLATE 5 MG TABLET 10 MG PO (08:59)
[2023-09-24] MEDS: CHOLECALCIFEROL 1,000 UNITS TABLET 1000 UNITS PO (09:00)
[2023-09-24] MEDS: MAGNESIUM OXIDE 200 MG TABLET PO ×2 (09:00→22:16)
[2023-09-24] MEDS: MEMANTINE 10 MG TABLET PO ×2 (09:01→22:15)
[2023-09-24] MEDS: SULFAMETHOXAZOLE/TRIMETHOPRIM 800/160 MG DS TABLET 2 TAB PO ×2 (09:01→22:16)
[2023-09-24] MEDS: BRIMONIDINE TARTRATE 0.2% OP SOLN 5 ML BTL 1 DROP RIGHT EYE ×2 (09:01→22:18)
[2023-09-24] MEDS: DORZOLAMIDE/TIMOLOL OPHTH SOL 10 ML BOTTLE 1 DROP RIGHT EYE ×2 (09:01→22:18)
[2023-09-24] MEDS: METOPROLOL SUCCINATE EXT REL 25 MG TABCR PO (09:01)
--- NOTE | 2023-09-24 09:50 | PM.PNPUL ---
Progress Note: A&P Assessment and Plan (1) Pleural effusion, left: Code(s): J90 - Pleural effusion, not elsewhere classified Status: Acute Assessment and Plan: Patient was admitted with E coli UTI with E coli bacteremia. CT scan shows multiple patchy infiltrates throughout all low lungs, moderate size left pleural effusion that is free-flowing. She has remained hemodynamically stable and was treated with ceftriaxone and azithromycin and is currently on Septra. She is in no respiratory distress and her oxygenation has improved since admission and currently she is on 1 L nasal cannula oxygen. She is anemic, and she is a [employer] and after speaking with the daughter in law the patient has previously said she would rather than have a blood transfusion. Patient is DNR. Plan: I recommended left thoracentesis to the daughter in law if the plan is to aggressively pursue additional therapies for possible complicated left pleural effusion or empyema which would entail transferring to a higher level of care facility for a chest tube. I explained the benefits and the risks of the procedure. The daughter in-law ask me for additional options and the other option that we talked about was not performing the thoracentesis and following the patient clinically on antibiotics. The daughter in-law will speak to the patient's son and I will call them on 09/24/2023 to discuss their wishes. In the meantime I will order a PT PTT and INR in the morning in case they should wish to pursue with the thoracentesis. Will check a chest x-ray in the morning. 09/24/23: Patient is on 3 L nasal cannula in no respiratory distress with saturations 94%. Patient's PTT is 47.2, INR is 1.2. chest x-ray this morning shows moderate left pleural effusion a small right pleural effusion.Recommend thoracentesis. I discussed risks (infection, bleeding, pneumothorax with possible chest tube) and benefits of procedure with the son, [id number] and a financial services sales representative from the [employer] in detail. Patient is a [employer] and will not receive any blood products in the future. I have discussed her PTT and reviewed her imaging with Radiology, Dr. Olguin, who is willing to proceed with therapeutic thoracentesis. Family wants to ensure that there are appropriate treatment plans in place to manage possible bleeding complication without blood products prior to proceeding with thoracentesis. I explained this is out of the scope of my practice and told them I would relay this message to the hospitalist team. If the thoracentesis is performed the following labs should be sent: Serum LDH, serum total protein. Pleural LDH, total protein, albumin, amylase, glucose, pH. Pleural cell count with differential. Pleural fluid for Gram stain and bacterial culture, fungal stain and fungal culture, AFB stain and AFB culture. Pleural fluid cytology. Discussed with Rhonda Polo, son, [id number], [employer] financial services sales representative and Dr. Olguin Inpatient Pulmonary consultative services will resume on 09/27/2023, call with questions (2) Hypoxia: Code(s): R09.02 - Hypoxemia Status: Acute Assessment and Plan: Patient was admitted to the hospital and required 2 L nasal cannula and on 09/21 and 09/22 she required 4 L nasal cannula. Today she is on 1 L nasal cannula. Etiology of patient's hypoxia includes left pleural effusion with adjacent compressive atelectasis, pneumonia, fluid overload, recent bacteremia. Plan: Discussed with family regarding thoracentesis as above, I discussed with hospitalist and we will discontinue her IV fluids. Patient is on Septra and or E coli is sensitive to this and she has responded clinically. Agree with continuation. Goal saturation 90-94%, wean as tolerated. I will send a BNP tomorrow morning. I will send a procalcitonin. Discussed with Carrie her daughter, Rhonda Polo, will follow with you 09/24/23: Lauren
--- NOTE | 2023-09-24 11:32 | PC.NURSE ---
Dr. Garcia, [employer]ist [employer], this RN, and hospitalist Rhonda have all been in this patients room and educated patient, family, and representatives on thoracentesis procedure, blood refusal, patient rights, and alternatives to treatment if blood transfusion were to be needed. Although this circumstance is rare with this routine procedure, a blood refusal form has been filled out by the patient. RN will call radiology to ensure we are still going forward with the procedure.
[2023-09-24] MEDS: FUROSEMIDE INJ 40 MG/4 ML VIAL 20 MG IV PUSH (12:00)
--- NOTE | 2023-09-24 14:13 | P.PNIM_ITS ---
Progress Note: A&P Assessment and Plan (1) Sepsis: Code(s): A41.9 - Sepsis, unspecified organism Status: Acute Assessment and Plan: * meets SIRS criteria with bandemia, fever, tachycardia and tachypnea * Source of sepsis include UTI and possibly pneumonia * continue IV gentle hydration * continue to monitor and trend labs * BC prelim showing e.coli, likely secondary to urinary tract infection * increased Rocephin to 2g until final results 09/22/2023: * Patient finish doxycycline today for pneumonia coverage * We also changed Rocephin over to cefdinir oral * Blood cultures are still pending which showing no growth on preliminary read * Urine culture showing E coli on final read * Continue to monitor labs 09/23/23: * blood cultures showing no on preliminary * continue cefdinir * continue to monitor labs 09/24/23: * Blood cultures showing no growth still on preliminary * Continue cefdinir * Patient having thoracentesis with labs/cultures/cytology done today. (2) Acute hypoxemic respiratory failure: Code(s): J96.01 - Acute respiratory failure with hypoxia Status: Acute Assessment and Plan: * CTA of chest abdomen pelvis negative for pulmonary embolism but showed right middle and upper lobe centrilobular nodular consolidations with suggestion of early cavitation as can be seen with septic emboli, necrotic pneumonia, and neoplastic disease. * Moderate pulmonary edema. Large left and small right pleural effusions. Likely left lower lobe and subsegmental left upper lobe passive atelectasis, consolidation of pneumonia is not excluded. * currently on 2L NC 09/22/2023: * Lungs coarse today bilaterally * Patient currently on 4 L nasal cannula * Plan for chest x-ray * Continue antibiotics 09/23/2023: * lungs remain course today, diminished in the bases. * Patient remains on 4 L nasal cannula * chest x-ray showing moderate left and small right pleural effusion, left basilar airspace disease representing pneumonia and or atelectasis, cardiomegaly * patient was treated for pneumonia with doxycycline * will get pulmonology consult today for further input 09/24/23: * left lower lobe diminished * Patient on 3L NC * CXR today showing moderate to large left pleural effusion, minimal right pleural effusion * Pulmonology following * Plan for thoracentesis today with labs to be sent (3) Pneumonia: Qualifiers: Laterality: bilateral Lung location: unspecified part of lung Pneumonia type: due to unspecified organism Qualified Code(s): J18.9 - Pneumonia, unspecified organism Code(s): J18.9 - Pneumonia, unspecified organism Status: Acute Assessment and Plan: * CXR showed patchy areas of left upper and mid lung airspace disease with dense consolidation in the left lung base, concerning for pneumonia. Small left pleural effusion. * continue Rocephin and doxycycline * PRN supportive care * oxygen at 2L NC 09/22/2023: * Lungs coarse today bilaterally, patient is currently on 4 L nasal cannula,she is not in any acute distress. * Patient finished course of doxycycline and currently on Rocephin which we switched to cefdinir today * Will obtain another chest x-ray in the morning 09/23/2023: * lungs coarse today bilaterally diminished in bases * patient remains on 4 L nasal cannula, unable wean * chest x-ray showing moderate left and small right pleural effusion, left basilar airspace disease representing pneumonia and/or atelectasis, cardiomegaly * pulmonary consulted
--- NOTE | 2023-09-24 14:13 | PM.IMPN ---
Progress Note: A&P Assessment and Plan (1) Sepsis: Code(s): A41.9 - Sepsis, unspecified organism Status: Acute Assessment and Plan: meets SIRS criteria with bandemia, fever, tachycardia and tachypnea Source of sepsis include UTI and possibly pneumonia continue IV gentle hydration continue to monitor and trend labs BC prelim showing e.coli, likely secondary to urinary tract infection increased Rocephin to 2g until final results 09/22/2023: Patient finish doxycycline today for pneumonia coverage We also changed Rocephin over to cefdinir oral Blood cultures are still pending which showing no growth on preliminary read Urine culture showing E coli on final read Continue to monitor labs 09/23/23: blood cultures showing no on preliminary continue cefdinir continue to monitor labs 09/24/23: Blood cultures showing no growth still on preliminary Continue cefdinir Patient having thoracentesis with labs/cultures/cytology done today. (2) Acute hypoxemic respiratory failure: Code(s): J96.01 - Acute respiratory failure with hypoxia Status: Acute Assessment and Plan: CTA of chest abdomen pelvis negative for pulmonary embolism but showed right middle and upper lobe centrilobular nodular consolidations with suggestion of early cavitation as can be seen with septic emboli, necrotic pneumonia, and neoplastic disease. Moderate pulmonary edema. Large left and small right pleural effusions. Likely left lower lobe and subsegmental left upper lobe passive atelectasis, consolidation of pneumonia is not excluded. currently on 2L NC 09/22/2023: Lungs coarse today bilaterally Patient currently on 4 L nasal cannula Plan for chest x-ray Continue antibiotics 09/23/2023: lungs remain course today, diminished in the bases. Patient remains on 4 L nasal cannula chest x-ray showing moderate left and small right pleural effusion, left basilar airspace disease representing pneumonia and or atelectasis, cardiomegaly patient was treated for pneumonia with doxycycline will get pulmonology consult today for further input 09/24/23: left lower lobe diminished Patient on 3L NC CXR today showing moderate to large left pleural effusion, minimal right pleural effusion Pulmonology following Plan for thoracentesis today with labs to be sent (3) Pneumonia: Qualifiers: Laterality: bilateral Lung location: unspecified part of lung Pneumonia type: due to unspecified organism Qualified Code(s): J18.9 - Pneumonia, unspecified organism Code(s): J18.9 - Pneumonia, unspecified organism Status: Acute Assessment and Plan: CXR showed patchy areas of left upper and mid lung airspace disease with dense consolidation in the left lung base, concerning for pneumonia. Small left pleural effusion. continue Rocephin and doxycycline PRN supportive care oxygen at 2L NC 09/22/2023: Lungs coarse today bilaterally, patient is currently on 4 L nasal cannula,she is not in any acute distress. Patient finished course of doxycycline and currently on Rocephin which we switched to cefdinir today Will obtain another chest x-ray in the morning 09/23/2023: lungs coarse today bilaterally diminished in bases patient remains on 4 L nasal cannula, unable wean chest x-ray showing moderate left and small right pleural effusion, left basilar airspace disease representing pneumonia and/or atelectasis, cardiomegaly pulmonary consulted patient finished course of doxycycline for pneumonia coverage yesterday 09/24/23: left lower lobe diminished Patient remains on 3L NC, unable to wean CXR today showing moderate to large pleural effusion IVF discontinued Pulmonology following Plan for thoracentesis Patient finished course of doxycyline for pneumonia (4) Acute UTI: Code(s): N39.0 - Urinary tract infection, site not specified Status: Acute Assessmen
[2023-09-24 15:51] LABS: pH Pleural Fluid > 7.500 (7.210-7.500)
[2023-09-24 17:04] LABS: Appearance Pleural Fluid Hazy (Clear); Color Pleural Fluid Yellow (Colorless); Pleural fluid source Pleural fluid
[2023-09-24 17:05] LABS: Lymphocytes Pleural Fluid 47 %; Monocytes Pleural Fluid 4 %; Neutrophils Pleural Fluid 47 % (0-25)
[2023-09-24 17:06] LABS: Mesothelial Cells Pleural Flui 2 %
[2023-09-24] MEDS: FERROUS SULFATE 325 MG TABLET DR PO (18:32)
--- NOTE | 2023-09-24 18:34 | PC.NURSE ---
Lab reported many WBC with no organisms in the pleural fluid obtained from thoracentesis today.
[2023-09-24 18:39] LABS: Lactate Dehydrogenase 163 U/L (120-246)
[2023-09-24] MEDS: MELATONIN 3 MG TABLET PO (22:15)
[2023-09-25] VITALS (8 sets, daily range): BP systolic 95–114; BP diastolic 50–53; PULSE 52–70; RESP 14–16; TEMP 36.2–36.7; O2SAT 90–99
--- NOTE | 2023-09-25 06:00 | PCRCNOTE ---
Pt was having a snack when RT entered the room to administer a sputum induction. Not able to do at this point. Will attempt later.
[2023-09-25 06:19] LABS: Basophils Percent Auto 0.2 % (0.2-1.2); Eosinophils Absolute Auto 0.3 K/mm3 (0-0.3); Eosinophils Percent Auto 6.7 % (0-4.4); Hematocrit 26.2 % (37.0-47.0); Hemoglobin 7.8 g/dL (12.0-15.0); Immature Granulocyte Absolute 0.02 K/mm3 (0.00-0.031); Immature Granulocyte Percent A 0.5 % (0-0.5); Lymphocytes Absolute Auto 0.52 K/mm3 (0.9-3.2); Lymphocytes Percent Auto 12.5 % (18.3-44.2); Mean Corpuscular HGB Conc 29.8 g/dl (32-36); Mean Corpuscular Hemoglobin 30.2 pg (26-34); Mean Corpuscular Volume 101.6 fl (80-100); Mean Platelet Volume 9.4 fl (7.4-10.4); Monocytes Absolute Auto 0.2 K/mm3 (0.1-0.6); Neutrophils Absolute Auto 3.1 K/mm3 (1.3-6.7); Neutrophils Percent Auto 75.1 % (45.5-73.1); Platelet Count Result 207 k/mm3 (150-375); Red Blood Count 2.58 M/mm3 (4.2-5.4); Red Cell Distribution Width 15.7 % (11.5-14.5); White Blood Count 4.2 K/mm3 (4.5-10.0)
[2023-09-25 06:31] LABS: Alanine Aminotransferase 11 U/L (6-35); Albumin Level 2.7 g/dL (3.5-5.1); Alkaline Phosphatase 80 U/L (38-126); Anion Gap 2 mmol/L (8-16); Aspartate Amino Transferase 22 U/L (14-36); Bilirubin,Total 0.3 mg/dL (0.2-1.3); Blood Urea Nitrogen 6 mg/dL (7-17); Calcium 7.9 mg/dL (8.4-10.2); Carbon Dioxide 29 mmol/L (22-30); Chloride 105 mmol/L (98-107); Estimated CRCL calculation 54 ml/min; Estimated Glomerular Filt Rate > 60; Glucose 70 mg/dL (65-110); Sodium 136 mmol/L (137-145)
[2023-09-25 07:04] LABS: Anisocytosis 1+ (NORMAL); Hypochromasia 1+ (NORMAL); Schistocytes None Seen (NORMAL)
--- NOTE | 2023-09-25 08:43 | P.PNIM_ITS ---
Progress Note: A&P Assessment and Plan (1) Sepsis: Code(s): A41.9 - Sepsis, unspecified organism Status: Acute Assessment and Plan: * meets SIRS criteria with bandemia, fever, tachycardia and tachypnea * Source of sepsis include UTI and possibly pneumonia * continue IV gentle hydration * continue to monitor and trend labs * BC prelim showing e.coli, likely secondary to urinary tract infection * increased Rocephin to 2g until final results 09/22/2023: * Patient finish doxycycline today for pneumonia coverage * We also changed Rocephin over to cefdinir oral * Blood cultures are still pending which showing no growth on preliminary read * Urine culture showing E coli on final read * Continue to monitor labs 09/23/23: * blood cultures showing no on preliminary * continue cefdinir * continue to monitor labs 09/24/23: * Blood cultures showing no growth still on preliminary * Continue cefdinir * Patient having thoracentesis with labs/cultures/cytology done today. 09/25/23: * Blood culture showing no growth on preliminary * Continue antibiotics * Patient had 1 L fluid removal on thoracentesis, labs and cultures are pending (2) Acute hypoxemic respiratory failure: Code(s): J96.01 - Acute respiratory failure with hypoxia Status: Acute Assessment and Plan: * CTA of chest abdomen pelvis negative for pulmonary embolism but showed right middle and upper lobe centrilobular nodular consolidations with suggestion of early cavitation as can be seen with septic emboli, necrotic pneumonia, and neoplastic disease. * Moderate pulmonary edema. Large left and small right pleural effusions. Likely left lower lobe and subsegmental left upper lobe passive atelectasis, consolidation of pneumonia is not excluded. * currently on 2L NC 09/22/2023: * Lungs coarse today bilaterally * Patient currently on 4 L nasal cannula * Plan for chest x-ray * Continue antibiotics 09/23/2023: * lungs remain course today, diminished in the bases. * Patient remains on 4 L nasal cannula * chest x-ray showing moderate left and small right pleural effusion, left basilar airspace disease representing pneumonia and or atelectasis, cardiomegaly * patient was treated for pneumonia with doxycycline * will get pulmonology consult today for further input 09/24/23: * left lower lobe diminished * Patient on 3L NC * CXR today showing moderate to large left pleural effusion, minimal right pleural effusion * Pulmonology following * Plan for thoracentesis today with labs to be sent 09/25/23: * Lungs clear today bilaterally * Patient remains on 3 L nasal cannula * Chest x-ray today showing improvement, small left pleural effusion with compressive atelectasis * Pulmonology following * And sennas spirometry ordered * Wean O2 for a sat greater than 92% (3) Pneumonia: Qualifiers: Laterality: bilateral Lung location: unspecified part of lung Pneumonia type: due to unspecified organism Qualified Code(s): J18.9 - Pneumonia, unspecified organism Code(s): J18.9 - Pneumonia, unspecified organism Status: Acute Assessment and Plan: * CXR showed patchy areas of left upper and mid lung airspace disease with dense consolidation in the left lung base, concerning for pneumonia. Small left pleural effusion. * continue Rocephin and doxycycline * PRN supportive care * oxygen at 2L NC 09/22/2023: * Lungs coarse today bilaterally, patient is currently on 4 L nasal cannula,she is not in any acute distress. *
--- NOTE | 2023-09-25 08:43 | PM.IMPN ---
Progress Note: A&P Assessment and Plan (1) Sepsis: Code(s): A41.9 - Sepsis, unspecified organism Status: Acute Assessment and Plan: meets SIRS criteria with bandemia, fever, tachycardia and tachypnea Source of sepsis include UTI and possibly pneumonia continue IV gentle hydration continue to monitor and trend labs BC prelim showing e.coli, likely secondary to urinary tract infection increased Rocephin to 2g until final results 09/22/2023: Patient finish doxycycline today for pneumonia coverage We also changed Rocephin over to cefdinir oral Blood cultures are still pending which showing no growth on preliminary read Urine culture showing E coli on final read Continue to monitor labs 09/23/23: blood cultures showing no on preliminary continue cefdinir continue to monitor labs 09/24/23: Blood cultures showing no growth still on preliminary Continue cefdinir Patient having thoracentesis with labs/cultures/cytology done today. 09/25/23: Blood culture showing no growth on preliminary Continue antibiotics Patient had 1 L fluid removal on thoracentesis, labs and cultures are pending (2) Acute hypoxemic respiratory failure: Code(s): J96.01 - Acute respiratory failure with hypoxia Status: Acute Assessment and Plan: CTA of chest abdomen pelvis negative for pulmonary embolism but showed right middle and upper lobe centrilobular nodular consolidations with suggestion of early cavitation as can be seen with septic emboli, necrotic pneumonia, and neoplastic disease. Moderate pulmonary edema. Large left and small right pleural effusions. Likely left lower lobe and subsegmental left upper lobe passive atelectasis, consolidation of pneumonia is not excluded. currently on 2L NC 09/22/2023: Lungs coarse today bilaterally Patient currently on 4 L nasal cannula Plan for chest x-ray Continue antibiotics 09/23/2023: lungs remain course today, diminished in the bases. Patient remains on 4 L nasal cannula chest x-ray showing moderate left and small right pleural effusion, left basilar airspace disease representing pneumonia and or atelectasis, cardiomegaly patient was treated for pneumonia with doxycycline will get pulmonology consult today for further input 09/24/23: left lower lobe diminished Patient on 3L NC CXR today showing moderate to large left pleural effusion, minimal right pleural effusion Pulmonology following Plan for thoracentesis today with labs to be sent 09/25/23: Lungs clear today bilaterally Patient remains on 3 L nasal cannula Chest x-ray today showing improvement, small left pleural effusion with compressive atelectasis Pulmonology following And sennas spirometry ordered Wean O2 for a sat greater than 92% (3) Pneumonia: Qualifiers: Laterality: bilateral Lung location: unspecified part of lung Pneumonia type: due to unspecified organism Qualified Code(s): J18.9 - Pneumonia, unspecified organism Code(s): J18.9 - Pneumonia, unspecified organism Status: Acute Assessment and Plan: CXR showed patchy areas of left upper and mid lung airspace disease with dense consolidation in the left lung base, concerning for pneumonia. Small left pleural effusion. continue Rocephin and doxycycline PRN supportive care oxygen at 2L NC 09/22/2023: Lungs coarse today bilaterally, patient is currently on 4 L nasal cannula,she is not in any acute distress. Patient finished course of doxycycline and currently on Rocephin which we switched to cefdinir today Will obtain another chest x-ray in the morning 09/23/2023: lungs coarse today bilaterally diminished in bases patient remains on 4 L nasal cannula, unable wean chest x-ray showing moderate left and small right pleural effusion, left basilar airspace disease representing pneumonia and/or atelectasis, cardiomegaly pulmonary consulted patient finished co
[2023-09-25] MEDS: DORZOLAMIDE/TIMOLOL OPHTH SOL 10 ML BOTTLE 1 DROP RIGHT EYE ×2 (08:46→20:49)
[2023-09-25] MEDS: METOPROLOL SUCCINATE EXT REL 25 MG TABCR PO (08:46)
[2023-09-25] MEDS: MEMANTINE 10 MG TABLET PO ×2 (08:46→20:49)
[2023-09-25] MEDS: amLODIPine BESYLATE 5 MG TABLET 10 MG PO (08:46)
[2023-09-25] MEDS: SULFAMETHOXAZOLE/TRIMETHOPRIM 800/160 MG DS TABLET 2 TAB PO ×2 (08:46→20:49)
[2023-09-25] MEDS: BRIMONIDINE TARTRATE 0.2% OP SOLN 5 ML BTL 1 DROP RIGHT EYE ×2 (08:46→20:49)
[2023-09-25] MEDS: CHOLECALCIFEROL 1,000 UNITS TABLET 1000 UNITS PO (08:46)
[2023-09-25] MEDS: MAGNESIUM OXIDE 200 MG TABLET PO ×2 (08:46→20:50)
[2023-09-25] MEDS: FERROUS SULFATE 325 MG TABLET DR PO ×2 (15:10→17:58)
[2023-09-25] MEDS: MELATONIN 3 MG TABLET PO (20:50)
[2023-09-26] MEDS: SODIUM CHLOR 3% 15 ML NEB (RESPIRATORY THERAPY) 6 ML INHALATION (04:38)
[2023-09-26 06:37] VITALS: BP 114/46; PULSE 62; RESP 16; TEMP 36.7; O2SAT 92
--- NOTE | 2023-09-26 06:54 | PCRCNOTE ---
patient was unable to submit a sputum sample; RN was notified
[2023-09-26 07:00] LABS: Basophils Percent Auto 0.5 % (0.2-1.2); Eosinophils Absolute Auto 0.3 K/mm3 (0-0.3); Eosinophils Percent Auto 6.3 % (0-4.4); Hematocrit 25.6 % (37.0-47.0); Hemoglobin 7.9 g/dL (12.0-15.0); Immature Granulocyte Absolute 0.05 K/mm3 (0.00-0.031); Immature Granulocyte Percent A 1.2 % (0-0.5); Lymphocytes Absolute Auto 0.62 K/mm3 (0.9-3.2); Mean Corpuscular HGB Conc 30.9 g/dl (32-36); Mean Corpuscular Hemoglobin 30.5 pg (26-34); Mean Corpuscular Volume 98.8 fl (80-100); Mean Platelet Volume 9.2 fl (7.4-10.4); Monocytes Absolute Auto 0.3 K/mm3 (0.1-0.6); Monocytes Percent Auto 6.8 % (2.6-8.5); Neutrophils Absolute Auto 2.9 K/mm3 (1.3-6.7); Neutrophils Percent Auto 70.2 % (45.5-73.1); Platelet Count Result 207 k/mm3 (150-375); Red Blood Count 2.59 M/mm3 (4.2-5.4); Red Cell Distribution Width 15.9 % (11.5-14.5); White Blood Count 4.1 K/mm3 (4.5-10.0)
[2023-09-26 07:05] LABS: Alanine Aminotransferase 9 U/L (6-35); Albumin Level 2.5 g/dL (3.5-5.1); Alkaline Phosphatase 81 U/L (38-126); Anion Gap 2 mmol/L (8-16); Aspartate Amino Transferase 19 U/L (14-36); Bilirubin,Total 0.3 mg/dL (0.2-1.3); Blood Urea Nitrogen 6 mg/dL (7-17); Calcium 7.9 mg/dL (8.4-10.2); Carbon Dioxide 30 mmol/L (22-30); Chloride 102 mmol/L (98-107); Estimated CRCL calculation 47 ml/min; Estimated Glomerular Filt Rate > 60; Glucose 75 mg/dL (65-110); Potassium 4.2 mmol/L (3.4-5.0); Sodium 134 mmol/L (137-145)
[2023-09-26] MEDS: ENOXAPARIN 40 MG/0.4 ML SYRINGE SUB-Q (09:33)
[2023-09-26] MEDS: SULFAMETHOXAZOLE/TRIMETHOPRIM 800/160 MG DS TABLET 2 TAB PO ×2 (09:33→22:00)
[2023-09-26 09:34] VITALS: PULSE 72
[2023-09-26] MEDS: MAGNESIUM OXIDE 200 MG TABLET PO ×2 (09:34→22:00)
[2023-09-26] MEDS: MEMANTINE 10 MG TABLET PO ×2 (09:34→22:00)
[2023-09-26] MEDS: METOPROLOL SUCCINATE EXT REL 25 MG TABCR PO (09:34)
[2023-09-26] MEDS: CHOLECALCIFEROL 1,000 UNITS TABLET 1000 UNITS PO (09:34)
[2023-09-26] MEDS: amLODIPine BESYLATE 5 MG TABLET 10 MG PO (09:36)
[2023-09-26] MEDS: DORZOLAMIDE/TIMOLOL OPHTH SOL 10 ML BOTTLE 1 DROP RIGHT EYE ×2 (09:42→22:02)
[2023-09-26] MEDS: BRIMONIDINE TARTRATE 0.2% OP SOLN 5 ML BTL 1 DROP RIGHT EYE ×2 (09:42→22:02)
[2023-09-26 14:00] VITALS: BP 117/58; PULSE 66; RESP 18; TEMP 36.1; O2SAT 90
--- NOTE | 2023-09-26 14:52 | P.PNIM_ITS ---
Progress Note: A&P Assessment and Plan (1) Sepsis: Code(s): A41.9 - Sepsis, unspecified organism Status: Acute Assessment and Plan: * meets SIRS criteria with bandemia, fever, tachycardia and tachypnea * Source of sepsis include UTI and possibly pneumonia * continue IV gentle hydration * continue to monitor and trend labs * BC prelim showing e.coli, likely secondary to urinary tract infection * increased Rocephin to 2g until final results 09/22/2023: * Patient finish doxycycline today for pneumonia coverage * We also changed Rocephin over to cefdinir oral * Blood cultures are still pending which showing no growth on preliminary read * Urine culture showing E coli on final read * Continue to monitor labs 09/23/23: * blood cultures showing no on preliminary * continue cefdinir * continue to monitor labs 09/24/23: * Blood cultures showing no growth still on preliminary * Continue cefdinir * Patient having thoracentesis with labs/cultures/cytology done today. 09/25/23: * Blood culture showing no growth on preliminary * Continue antibiotics * Patient had 1 L fluid removal on thoracentesis, labs and cultures are pending 09/26/23: * Blood culture showing no growth on preliminary * Microbiology on the pleural fluid so far is coming back negative preliminary reading (2) Acute hypoxemic respiratory failure: Code(s): J96.01 - Acute respiratory failure with hypoxia Status: Acute Assessment and Plan: * CTA of chest abdomen pelvis negative for pulmonary embolism but showed right middle and upper lobe centrilobular nodular consolidations with suggestion of early cavitation as can be seen with septic emboli, necrotic pneumonia, and neoplastic disease. * Moderate pulmonary edema. Large left and small right pleural effusions. Likely left lower lobe and subsegmental left upper lobe passive atelectasis, consolidation of pneumonia is not excluded. * currently on 2L NC 09/22/2023: * Lungs coarse today bilaterally * Patient currently on 4 L nasal cannula * Plan for chest x-ray * Continue antibiotics 09/23/2023: * lungs remain course today, diminished in the bases. * Patient remains on 4 L nasal cannula * chest x-ray showing moderate left and small right pleural effusion, left basilar airspace disease representing pneumonia and or atelectasis, cardiomegaly * patient was treated for pneumonia with doxycycline * will get pulmonology consult today for further input 09/24/23: * left lower lobe diminished * Patient on 3L NC * CXR today showing moderate to large left pleural effusion, minimal right pleural effusion * Pulmonology following * Plan for thoracentesis today with labs to be sent 09/25/23: * Lungs clear today bilaterally * Patient remains on 3 L nasal cannula * Chest x-ray today showing improvement, small left pleural effusion with compressive atelectasis * Pulmonology following * Incentive spirometry ordered * Wean O2 for a sat greater than 92% 09/26/23: * Patient currently on room air * Pulmonology is following * Will check a chest x-ray in the morning * Continue IS 10 times an hour while awake * If she does well overnight we can likely discharge (3) Pneumonia: Qualifiers: Laterality: bilateral Lung location: unspecified part of lung Pneumonia type: due to unspecified organism Qualified Code(s): J18.9 - Pneumonia, unspecified organism Code(s): J18.9 - Pneumonia, unspecified organism Status: Acute Assessment and Plan: * CXR showed
--- NOTE | 2023-09-26 14:52 | PM.IMPN ---
Progress Note: A&P Assessment and Plan (1) Sepsis: Code(s): A41.9 - Sepsis, unspecified organism Status: Acute Assessment and Plan: meets SIRS criteria with bandemia, fever, tachycardia and tachypnea Source of sepsis include UTI and possibly pneumonia continue IV gentle hydration continue to monitor and trend labs BC prelim showing e.coli, likely secondary to urinary tract infection increased Rocephin to 2g until final results 09/22/2023: Patient finish doxycycline today for pneumonia coverage We also changed Rocephin over to cefdinir oral Blood cultures are still pending which showing no growth on preliminary read Urine culture showing E coli on final read Continue to monitor labs 09/23/23: blood cultures showing no on preliminary continue cefdinir continue to monitor labs 09/24/23: Blood cultures showing no growth still on preliminary Continue cefdinir Patient having thoracentesis with labs/cultures/cytology done today. 09/25/23: Blood culture showing no growth on preliminary Continue antibiotics Patient had 1 L fluid removal on thoracentesis, labs and cultures are pending 09/26/23: Blood culture showing no growth on preliminary Microbiology on the pleural fluid so far is coming back negative preliminary reading (2) Acute hypoxemic respiratory failure: Code(s): J96.01 - Acute respiratory failure with hypoxia Status: Acute Assessment and Plan: CTA of chest abdomen pelvis negative for pulmonary embolism but showed right middle and upper lobe centrilobular nodular consolidations with suggestion of early cavitation as can be seen with septic emboli, necrotic pneumonia, and neoplastic disease. Moderate pulmonary edema. Large left and small right pleural effusions. Likely left lower lobe and subsegmental left upper lobe passive atelectasis, consolidation of pneumonia is not excluded. currently on 2L NC 09/22/2023: Lungs coarse today bilaterally Patient currently on 4 L nasal cannula Plan for chest x-ray Continue antibiotics 09/23/2023: lungs remain course today, diminished in the bases. Patient remains on 4 L nasal cannula chest x-ray showing moderate left and small right pleural effusion, left basilar airspace disease representing pneumonia and or atelectasis, cardiomegaly patient was treated for pneumonia with doxycycline will get pulmonology consult today for further input 09/24/23: left lower lobe diminished Patient on 3L NC CXR today showing moderate to large left pleural effusion, minimal right pleural effusion Pulmonology following Plan for thoracentesis today with labs to be sent 09/25/23: Lungs clear today bilaterally Patient remains on 3 L nasal cannula Chest x-ray today showing improvement, small left pleural effusion with compressive atelectasis Pulmonology following Incentive spirometry ordered Wean O2 for a sat greater than 92% 09/26/23: Patient currently on room air Pulmonology is following Will check a chest x-ray in the morning Continue IS 10 times an hour while awake If she does well overnight we can likely discharge (3) Pneumonia: Qualifiers: Laterality: bilateral Lung location: unspecified part of lung Pneumonia type: due to unspecified organism Qualified Code(s): J18.9 - Pneumonia, unspecified organism Code(s): J18.9 - Pneumonia, unspecified organism Status: Acute Assessment and Plan: CXR showed patchy areas of left upper and mid lung airspace disease with dense consolidation in the left lung base, concerning for pneumonia. Small left pleural effusion. continue Rocephin and doxycycline PRN supportive care oxygen at 2L NC 09/22/2023: Lungs coarse today bilaterally, patient is currently on 4 L nasal cannula,she is not in any acute distress. Patient finished course of doxycycline and currently on Rocephin which we switched to cefdinir today Will obtain [facility]
[2023-09-26 20:33] VITALS: BP 117/46; PULSE 80; RESP 17; TEMP 36.4; O2SAT 92
--- NOTE | 2023-09-26 21:24 | PC.NURSE ---
Received in report patient had been refusing Tele all day during the day shift. Spoke to patient, still refusing to wear it. Call provided and explained about situation. Orders received to D/C Tele.
[2023-09-26] MEDS: MELATONIN 3 MG TABLET PO (22:00)
[2023-09-27 05:05] VITALS: PULSE 79; RESP 16
[2023-09-27] MEDS: SODIUM CHLOR 3% 15 ML NEB (RESPIRATORY THERAPY) 6 ML INHALATION (05:05)
[2023-09-27 05:33] VITALS: BP 114/51; PULSE 71; RESP 18; TEMP 36.3; O2SAT 94
[2023-09-27 06:28] LABS: Basophils Percent Auto 0.5 % (0.2-1.2); Eosinophils Absolute Auto 0.3 K/mm3 (0-0.3); Eosinophils Percent Auto 7.7 % (0-4.4); Hematocrit 27.4 % (37.0-47.0); Hemoglobin 8.2 g/dL (12.0-15.0); Immature Granulocyte Absolute 0.04 K/mm3 (0.00-0.031); Lymphocytes Absolute Auto 0.36 K/mm3 (0.9-3.2); Lymphocytes Percent Auto 9.2 % (18.3-44.2); Mean Corpuscular HGB Conc 29.9 g/dl (32-36); Mean Corpuscular Hemoglobin 30.3 pg (26-34); Mean Corpuscular Volume 101.1 fl (80-100); Mean Platelet Volume 9.3 fl (7.4-10.4); Monocytes Absolute Auto 0.3 K/mm3 (0.1-0.6); Monocytes Percent Auto 7.9 % (2.6-8.5); Neutrophils Absolute Auto 2.9 K/mm3 (1.3-6.7); Neutrophils Percent Auto 73.7 % (45.5-73.1); Platelet Count Result 233 k/mm3 (150-375); Red Blood Count 2.71 M/mm3 (4.2-5.4); Red Cell Distribution Width 16.8 % (11.5-14.5); White Blood Count 3.9 K/mm3 (4.5-10.0)
[2023-09-27 06:38] LABS: Alanine Aminotransferase 10 U/L (6-35); Albumin Level 2.7 g/dL (3.5-5.1); Alkaline Phosphatase 97 U/L (38-126); Anion Gap 5 mmol/L (8-16); Aspartate Amino Transferase 19 U/L (14-36); Bilirubin,Total 0.3 mg/dL (0.2-1.3); Blood Urea Nitrogen 5 mg/dL (7-17); Calcium 8.1 mg/dL (8.4-10.2); Carbon Dioxide 28 mmol/L (22-30); Chloride 101 mmol/L (98-107); Estimated CRCL calculation 41 ml/min; Estimated Glomerular Filt Rate > 60; Glucose 81 mg/dL (65-110); Potassium 4.3 mmol/L (3.4-5.0); Sodium 134 mmol/L (137-145)
[2023-09-27] MEDS: MAGNESIUM OXIDE 200 MG TABLET PO (08:30)
[2023-09-27] MEDS: amLODIPine BESYLATE 5 MG TABLET 10 MG PO (08:30)
[2023-09-27] MEDS: SULFAMETHOXAZOLE/TRIMETHOPRIM 800/160 MG DS TABLET 2 TAB PO ×2 (08:30→16:35)
[2023-09-27] MEDS: CHOLECALCIFEROL 1,000 UNITS TABLET 1000 UNITS PO (08:30)
[2023-09-27] MEDS: MEMANTINE 10 MG TABLET PO (08:30)
[2023-09-27] MEDS: DORZOLAMIDE/TIMOLOL OPHTH SOL 10 ML BOTTLE 1 DROP RIGHT EYE (08:30)
[2023-09-27] MEDS: BRIMONIDINE TARTRATE 0.2% OP SOLN 5 ML BTL 1 DROP RIGHT EYE (08:30)
[2023-09-27] MEDS: METOPROLOL SUCCINATE EXT REL 25 MG TABCR PO (08:30)
[2023-09-27 08:35] LABS: Platelet Estimate Adequate (Adequate); Schistocytes None Seen (NORMAL)
[2023-09-27 08:36] LABS: Ovalocytes 1+ (NORMAL)
[2023-09-27 10:27] VITALS: BMI 21.5
--- NOTE | 2023-09-27 11:54 | PM.PNPUL ---
Progress Note: A&P Assessment and Plan (1) Pleural effusion, left: Code(s): J90 - Pleural effusion, not elsewhere classified Status: Acute Assessment and Plan: Patient was admitted with E coli UTI with E coli bacteremia. CT scan shows multiple patchy infiltrates throughout all low lungs, moderate size left pleural effusion that is free-flowing. She has remained hemodynamically stable and was treated with ceftriaxone and azithromycin and is currently on Septra. She is in no respiratory distress and her oxygenation has improved since admission and currently she is on 1 L nasal cannula oxygen. She is anemic, and she is a [employer] and after speaking with the daughter in law the patient has previously said she would rather than have a blood transfusion. Patient is DNR. Plan: I recommended left thoracentesis to the daughter in law if the plan is to aggressively pursue additional therapies for possible complicated left pleural effusion or empyema which would entail transferring to a higher level of care facility for a chest tube. I explained the benefits and the risks of the procedure. The daughter in-law ask me for additional options and the other option that we talked about was not performing the thoracentesis and following the patient clinically on antibiotics. The daughter in-law will speak to the patient's son and I will call them on 09/24/2023 to discuss their wishes. In the meantime I will order a PT PTT and INR in the morning in case they should wish to pursue with the thoracentesis. Will check a chest x-ray in the morning. 09/24/23: Patient is on 3 L nasal cannula in no respiratory distress with saturations 94%. Patient's PTT is 47.2, INR is 1.2. chest x-ray this morning shows moderate left pleural effusion a small right pleural effusion.Recommend thoracentesis. I discussed risks (infection, bleeding, pneumothorax with possible chest tube) and benefits of procedure with the son, [id number] and a residential sales representative from the [employer] in detail. 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 I have discussed her PTT and reviewed her imaging with Radiology, Dr. Olguin, who is willing to proceed with therapeutic thoracentesis. Family wants to ensure that there are appropriate treatment plans in place to manage possible bleeding complication without blood products prior to proceeding with thoracentesis. I explained this is out of the scope of my practice and told them I would relay this message to the hospitalist team. If the thoracentesis is performed the following labs should be sent: Serum LDH, serum total protein. Pleural LDH, total protein, albumin, amylase, glucose, pH. Pleural cell count with differential. Pleural fluid for Gram stain and bacterial culture, fungal stain and fungal culture, AFB stain and AFB culture. Pleural fluid cytology. Discussed with Rhonda Polo, son, [id number], [employer]ologist residential sales representative and Dr. Olguin Inpatient Pulmonary consultative services will resume on 09/27/2023, call with questions. Later in the day patient had a left pleural effusion thoracentesis with 1000 mL of afshan fluid removed, pH greater than 7.5. G stain many white blood cells, no organisms seen. Cell differential neutrophils 47, lymphocytes 47%, monocytes 4%, mesothelial cells 2%. Cultures remain no growth to date. Chest x-ray showed improved left effusion. Currently this represents a neutrophilic and lymphocytic culture negative effusion. 09/27/23: Patient states she is breathing normally at this time. She has no chest pain, phlegm production or hemoptysis. She is on room air with saturations 94%. White blood cell count 3.9, creatinine 0.8. She is afebrile. Chest x-ray today shows improving interstitial infiltrates with a small left effusion. Pleural fluid chemistries, and cytology are pending. Plan: Currently this represents a neutrophilic and
[2023-09-27] MEDS: FERROUS SULFATE 325 MG TABLET DR PO ×4 (12:00→17:00)
--- NOTE | 2023-09-27 13:56 | PM.DS ---
DS: Admitting Diagnosis Discharge Date 09/27/23 Admitting Diagnosis Pneumonia Acute UTI Acute hypoxic respiratory failure QT prolongation DS: Discharge Diagnosis Discharge Diagnosis (1) Sepsis: Code(s): A41.9 - Sepsis, unspecified organism Status: Acute (2) Acute hypoxemic respiratory failure: Code(s): J96.01 - Acute respiratory failure with hypoxia Status: Acute (3) Pneumonia: Qualifiers: Laterality: bilateral Lung location: unspecified part of lung Pneumonia type: due to unspecified organism Qualified Code(s): J18.9 - Pneumonia, unspecified organism Code(s): J18.9 - Pneumonia, unspecified organism Status: Acute (4) Acute UTI: Code(s): N39.0 - Urinary tract infection, site not specified Status: Acute (5) Right renal mass: Code(s): N28.89 - Other specified disorders of kidney and ureter Status: Acute (6) Abnormal CT of the abdomen: Code(s): R93.5 - Abnormal findings on diagnostic imaging of other abdominal regions, including retroperitoneum Status: Acute (7) Anemia: Qualifiers: Anemia type: unspecified type Qualified Code(s): D64.9 - Anemia, unspecified Code(s): D64.9 - Anemia, unspecified Status: Acute DS: Summary Hospital Course Reason for hospitalization: Pneumonia Acute UTI Acute hypoxic respiratory failure Hospital Course: 09/22/23: This is an 83-year-old female who presented to the hospital on 09/18/2023 for evaluation of fever and lethargy.? She presented from [facility] via EMS.? She was noted to have a temp of 101.4? and altered mental status at the time of arrival.? She was meeting sepsis criteria at that time.? Workup in the hospital included a chest x-ray which shown patchy areas of left upper and mid lung airspace disease with dense consolidation in the left lung base concerning for pneumonia, small left pleural effusion.? She also had a chest abdomen and pelvis CTA which revealed right middle and upper lobe central lobe you are nodular consolidations with suggestion of early cavitation, mild pulmonary edema, left large and small right pleural effusion, wedge-shaped hypodensity in the spleen, patchy left renal enhancement may reflect pyelonephritis in the appropriate clinical context, fecal impaction, enhancing right upper pole renal mass concerning for renal cell carcinoma, possible cystitis.? Venous Dopplers were also done which were negative for DVT.? Labs showing white blood cell count of 6.9, hemoglobin 8.4, hematocrit 26.7, band count 9%, neutrophils 77%, fibrinogen 649, PTT 44.9, PTT 69.9, sodium was 132.? UA reveals 2+ protein, 3+ urine blood, 3+ leukocytes, greater than 100 urine wbc's, many urine squamous epithelial cells, 4+ bacteria.? Blood and urine cultures were obtained.? Blood culture is showing no growth currently on preliminary read.? Urine culture is showing E coli on final read.? Patient was started on doxycycline for pneumonia coverage which she finished today.? She also was on Rocephin which we switched to cefdinir today. On examination today patient is alert and oriented x3, lying in the bed.? She denies any fever, chills, nausea, vomiting, diarrhea, shortness of breath, chest pain.? She is currently on 4 L nasal cannula with an O2 sat of 92-95%, she is afebrile, vital signs are stable. 09/23/23: On examination today patient is alert oriented x2-3, lying in the bed.? She denies any new complaints today.? She does remain on 4 L nasal cannula, vital signs are stable, she is afebrile.? Labs today revealed white blood cell count of 4.2, hemoglobin 8.0, hematocrit 26.7, platelet count 145, sodium 135, calcium 8.0. ? I went ahead and got a chest x-ray today which shown a moderate left pleural effusion, left basilar airspace disease representing either atelectasis or pneumonia, cardiomegaly.? Considering that she has remained on 4 L nasal cannula and the report of the moderate left pleura
[2023-09-27 14:00] VITALS: BP 106/47; PULSE 61; RESP 20; TEMP 36; O2SAT 96
[2023-09-27 15:02] LABS: SARS-CoV-2 RNA PCR Negative (Negative)
[2023-09-30 18:34] LABS: Amylase, Pleural Fluid 14 U/L
[2023-09-30 21:37] LABS: Glucose Pleural Fluid 77 mg/dL; LDH Pleural Fluid 55 U/L; Total Protein Pleural Fluid <3.0 g/dL
[2023-10-01 08:57] LABS: Albumin Pleural Fluid 1.1 g/dL
== END 2023-09-27 19:15 | DRG 871 ==
LOC: ANHED 21:45 → ANH3MEDSUR 22:40
PROVIDERS: Internal Medicine Pulmonary Disease; Nurse Practitioner; Admitting Provider Internal Medicine; Emergency Provider Emergency Medicine; PCP Family Medicine; Visit Provider Nurse Practitioner Acute Care
DX: J18.9 Pneumonia, unspecified organism; A41.51 Sepsis due to Escherichia coli [E. coli]; J96.01 Acute respiratory failure with hypoxia; N39.0 Urinary tract infection, site not specified; J90 Pleural effusion, not elsewhere classified; N17.9 Acute kidney failure, unspecified; B96.20 Unspecified Escherichia coli [E. coli] as the cause of diseases classified elsewhere; D53.9 Nutritional anemia, unspecified; D73.5 Infarction of spleen; D69.6 Thrombocytopenia, unspecified; E11.42 Type 2 diabetes mellitus with diabetic polyneuropathy; G47.33 Obstructive sleep apnea (adult) (pediatric); I48.91 Unspecified atrial fibrillation; I10 Essential (primary) hypertension; K56.41 Fecal impaction; N28.89 Other specified disorders of kidney and ureter; N39.498 Other specified urinary incontinence; R93.5 Abnormal findings on diagnostic imaging of other abdominal regions, including retroperitoneum; Z86.73 Personal history of transient ischemic attack (TIA), and cerebral infarction without residual deficits; Z11.52 Encounter for screening for COVID-19; Z79.01 Long term (current) use of anticoagulants; Z85.528 Personal history of other malignant neoplasm of kidney; Z90.710 Acquired absence of both cervix and uterus; Z96.653 Presence of artificial knee joint, bilateral; Z98.41 Cataract extraction status, right eye; Z98.42 Cataract extraction status, left eye; Z66 Do not resuscitate
CPT/HCPCS: 32555; 36415; 71045; 71046; 71275; 74177; 80048; 80053; 80069; 81001; 82042; 82150; 82728; 82945; 82948; 83540; 83550; 83605; 83615; 83735; 83880; 83986; 84145; 84155; 84157; 84484; 85025; 85380; 85384; 85610; 85730; 87015; 87040; 87070; 87075; 87077; 87086; 87088; 87102; 87116; 87186; 87205; 87206; 87635; 87637; 88108; 88184; 88305; 89051; 93005; 93970; 96361; 96365; 96367; 96374; 96375; 97110; 97161; 97165; 97530; 97535; 99285; A9270; G0378; J0456; J0696; J1650; J1940; J7030; Q9967

== ENCOUNTER 2023-09-27 23:02 | Emergency (ER) | payer MEDICARE, SELFPAY ==
--- NOTE | ~2023-09-27 | XR_ITS ---
EXAMINATION: XR chest 2V Exam Date/Time: 09/27/2023 23:30 INJECTION MOLDING PROCESS TECHNICIAN HISTORY: hypoxia Comparison: 09/26/2023. RESULT: Lines, tubes, and devices: None. Lungs and pleura: Worsening hazy groundglass opacity in the left mid and lower lung and the right lo wer lung, with increasing subsegmental airspace disease in the medial right lower lung. Stable left b asilar airspace disease Persistent left costophrenic angle blunting. Cardiomediastinal silhouette: Stable. Other: No acute osseous or upper abdominal finding. IMPRESSION: Worsening edema and left lower lobe atelectasis. Infection not excluded. Stable small left pleural ef fusion. Reviewed, dictated and finalized at location K. CTION MOLDING PROCESS TECHNICIAN IMPRESSION: Worsening edema and left lower lobe atelectasis. Infection not excluded. Stable small left pleural effusion.
[2023-09-27 23:07] VITALS: BP 121/57; PULSE 62; RESP 19; TEMP 37.2; O2SAT 97
--- NOTE | 2023-09-27 23:08 | ECG_ITS ---
Measurements Intervals [place] Rate: 63 P: TX: 0 QRS: -55 QRSD: 165 T: 108 QT: 471 QTc: 485 Interpretive Statements ATRIAL FIBRILLATION LEFT AXIS DEVIATION LEFT BUNDLE BRANCH BLOCK BASELINE WANDER- I, II, III, AVR, AVF ABNORMAL ECG COMPARED TO ECG 09/18/2023 22:51:26 NO SIGNIFICANT CHANGES Electronically Signed On 09-28-2023 6:27:07 MANAGER DIESEL by Cade Velazquez D.O.
--- NOTE | 2023-09-27 23:25 | ED.SOB ---
HPI - SOB/Dyspnea General Chief Complaint: Recheck/Abnormal Lab/Rx Stated Complaint: LOW O2 SATS, RECENT PNE Time Seen by Provider: 09/27/23 23:16 Source: patient Mode of arrival: EMS Limitations: dementia History of Present Illness HPI Narrative: This is a 83 year old female that presents to the ER for hypoxia. Reportedly patient was short of breath while lying down at her facility. Oxygen saturation in the 80s. Placed on 2L NC with improvement. Patient recently admitted and treated for pneumonia. Patient with no complaints currently. Related Data Home Medications Medication Instructions Recorded Confirmed telmisartan 40 mg tablet 80 mg PO DAILY 10/25/19 09/18/23 ferrous sulfate 325 mg (65 mg 325 mg PO BID 06/13/20 09/18/23 iron) tablet (iron) apixaban 5 mg tablet (Eliquis) 5 mg PO BID 07/29/20 09/18/23 cholecalciferol (vitamin D3) 25 25 mcg PO DAILY 12/16/20 09/18/23 mcg (1,000 unit) tablet (Vitamin D3) brimonidine 0.2 % eye drops 1 drp RIGHT EYE BID 09/14/22 09/18/23 dorzolamide 22.3 mg-timolol 6.8 1 drp RIGHT EYE BID 09/14/22 09/18/23 mg/mL eye drops diclofenac sodium 1 % topical gel 2 g topical QID PRN arthritis pain 03/21/23 09/18/23 lutein 25 mg-zeaxanthin 5 mg 1 cap PO DAILY 05/07/23 09/18/23 capsule (Ocuvite Lutein) memantine 10 mg tablet 10 mg PO BID 05/07/23 09/18/23 acetaminophen 325 mg tablet 650 mg PO Q4H PRN Pain (Scale 07/26/23 09/18/23 (Tylenol) Score 1-3) melatonin 1 mg tablet 1 mg PO HS 07/26/23 09/18/23 atorvastatin 40 mg tablet 40 mg PO HS 09/18/23 09/18/23 cefuroxime axetil 500 mg tablet 500 mg PO BID 09/18/23 09/18/23 guaifenesin 100 mg/5 mL oral liquid 200 mg PO QID PRN Congestion 09/18/23 09/18/23 magnesium hydroxide 400 mg/5 mL 400 mg PO DAILY PRN Constipation 09/18/23 09/18/23 oral suspension ([place] Milk of Magnesia) vit C-vit B-ijemha-jhmhaixy capsule 1 cap PO DAILY 09/18/23 09/18/23 Allergies Allergy/AdvReac Type Severity Reaction Status Date / Time simvastatin Allergy Unknown Unknown Verified 07/26/23 03:33 MEPERIDINE HCL AdvReac Severe MADE Uncoded 05/11/23 09:33 PATIENT VERY MEAN DURING LABOR Review of Systems Review of Systems: ROS unobtainable: Yes unobtainable due to medical condition PMFSH Past Medical History Medical History (Updated 09/28/23 @ 01:45 by Eugenia Wild PA-C) Afib Body mass index (BMI) greater than 40 (09/19/15) Patient BMI is now 21 (August 2023) CHF (congestive heart failure) Diabetic peripheral neuropathy Essential (primary) hypertension Helicobacter positive gastritis History of CVA (cerebrovascular accident) Microcytic anemia Multi-infarct dementia Obstructive sleep apnea Pulmonary hypertension Renal cell carcinoma Stroke Type 2 diabetes mellitus with hyperglycemia Surgical History Surgical History (Updated 09/21/23 @ 19:01 by Trevor Gallegos MD) H/O inguinal hernia repair H/O: hysterectomy History of arthroplasty of both knees History of cataract surgery both eyes, did not work in right eye Family History Family History Sibling Family history of thyroid disease Cerebrovascular accident Social History Social History Social History: She typically lives with her but is currently at [facility] for rehab. They have one son. 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 She is a lifelong nonsmoker. Code status DNR Smoking status: Never smoker Second hand tobacco smoke exposure: No Alcohol intake: never Substance use: never Do You Feel Safe in your Home?: Yes Lack of Transportation: No Lack of Food: Never True Current Housing: I Have Housing Concerned About Future Housing: No Difficulty Paying Gas/Electric Bills: No Difficulty Paying for Meds: No Currently Unemployed: No Education: Grade School Difficulty w
[2023-09-28 00:26] VITALS: BP 114/59; PULSE 64; RESP 12; O2SAT 98
[2023-09-28 00:27] VITALS: RESP 12; O2SAT 97
[2023-09-28 00:29] LABS: Eosinophils Absolute Auto 0.3 K/mm3 (0-0.3); Eosinophils Percent Auto 7.5 % (0-4.4); Hematocrit 27.2 % (37.0-47.0); Hemoglobin 8.2 g/dL (12.0-15.0); Immature Granulocyte Absolute 0.02 K/mm3 (0.00-0.031); Immature Granulocyte Percent A 0.6 % (0-0.5); Lymphocytes Absolute Auto 0.27 K/mm3 (0.9-3.2); Lymphocytes Percent Auto 7.5 % (18.3-44.2); Mean Corpuscular HGB Conc 30.1 g/dl (32-36); Mean Corpuscular Hemoglobin 30.3 pg (26-34); Mean Corpuscular Volume 100.4 fl (80-100); Monocytes Absolute Auto 0.3 K/mm3 (0.1-0.6); Monocytes Percent Auto 7.3 % (2.6-8.5); Neutrophils Absolute Auto 2.8 K/mm3 (1.3-6.7); Neutrophils Percent Auto 77.1 % (45.5-73.1); Platelet Count Result 228 k/mm3 (150-375); Red Blood Count 2.71 M/mm3 (4.2-5.4); Red Cell Distribution Width 17.1 % (11.5-14.5); White Blood Count 3.6 K/mm3 (4.5-10.0)
[2023-09-28 00:40] LABS: Alanine Aminotransferase 9 U/L (6-35); Albumin Level 2.8 g/dL (3.5-5.1); Alkaline Phosphatase 102 U/L (38-126); Anion Gap 3 mmol/L (8-16); Aspartate Amino Transferase 19 U/L (14-36); Bilirubin,Total 0.3 mg/dL (0.2-1.3); Blood Urea Nitrogen 6 mg/dL (7-17); Calcium 8.2 mg/dL (8.4-10.2); Carbon Dioxide 28 mmol/L (22-30); Chloride 99 mmol/L (98-107); Estimated CRCL calculation 41 ml/min; Estimated Glomerular Filt Rate > 60; Glucose 81 mg/dL (65-110); Potassium 4.7 mmol/L (3.4-5.0); Sodium 130 mmol/L (137-145)
[2023-09-28 00:41] LABS: INR 1.4; Prothrombin Time 18.2 Seconds (11.1-14.7)
[2023-09-28 00:42] LABS: Partial Thromboplastin Time 47.4 SECONDS (22.3-36.8)
[2023-09-28 00:49] LABS: NT Pro B Type Natriuretic Pept 3630 pg/mL (19.9-100)
[2023-09-28] MEDS: FUROSEMIDE INJ 40 MG/4 ML VIAL IV PUSH (02:25)
== END 2023-09-28 02:42 ==
PROVIDERS: Emergency Provider Physician Assistant; PCP Family Medicine
DX: J96.01 Acute respiratory failure with hypoxia (principal); J81.1 Chronic pulmonary edema; I48.91 Unspecified atrial fibrillation; I11.0 Hypertensive heart disease with heart failure; I50.9 Heart failure, unspecified; E11.9 Type 2 diabetes mellitus without complications; Z86.73 Personal history of transient ischemic attack (TIA), and cerebral infarction without residual deficits
CPT/HCPCS: 36415; 71046; 80053; 83880; 85025; 85610; 85730; 93005; 96374; 99284; J1940